=== PATIENT | female | born 1955 | race Caucasian/White ===

== ENCOUNTER 2017-01-22 09:30 | Inpatient (IN) | payer OTHER ==
[~2017-01-22] VITALS: Ht 157.5 cm; Wt 80.0 kg
[2017-01-22] VITALS (8 sets, daily range): BP systolic 105–135; BP diastolic 52–82; PULSE 66–103; RESP 16–20; TEMP 97.6–103.1; O2SAT 93–98
[~2017-01-22 09:30] MED LIST: CARV12.5 PO; ESTR30V VAGINAL; SPIR25TA PO
[2017-01-22] MEDS ORDERED: cefTRIAXone INJ 2,000 MG in SODIUM CHLORIDE 0.9% INJ 100 ML IV STA (09:51)
[2017-01-22] MEDS ORDERED: ASPI81CH37 CHEW (09:54)
[2017-01-22] MEDS ORDERED: NEUR800T PO (09:54)
[2017-01-22] MEDS ORDERED: CARV25TA PO (09:54)
--- NOTE | 2017-01-22 09:55 | PD ---
HPI Chief Complaint: Fever Time Seen by Provider: 09:51 Travel History International Travel<30 days: No Contact w/Intl Traveler<30days: No Traveled to known affect area: No History of Present Illness HPI 61-year-old female patient with history of hypertension, defibrillator, presents to the ER today because she has had 3 weeks' history of intermittent fevers and chills, fevers of 103 at times, headaches, and coughing. She denies any nausea, vomiting, stiff neck, or any other symptoms. She had been seen by her primary care physician regarding this issue and had urine done which was negative. She is coming in today because her colleague noted that she was appearing cyanotic. She denies shortness of breath currently. Modifying Factors: None Associated Signs & Symptoms: Fevers, cough, chills for 3 weeks Risk Factors: None PFSH Past Medical History Cancer: No Cardiovascular Problems: Yes (DEFIB) Chest Pain: No Diabetes: No Gastrointestinal Disorders: No Glaucoma: No Hepatitis: No Hiatal Hernia: No Integumentary: No Thyroid Disease: No Past Surgical History Thoracic Surgery: No Social History Alcohol Use: Yes Tobacco Use: No Allergies-Medications (Allergen,Severity, Reaction): Coded Allergies: No Known Allergies (Unverified , 11/29/15) Reported Meds & Prescriptions Reported Meds & Active Scripts Active Reported Aspirin Low Dose (Aspirin) 81 Mg Chew 81 Mg CHEW DAILY Carvedilol 25 Mg Tab 25 Mg PO BID Neurontin (Gabapentin) 800 Mg Tab 1,000 Mg PO BID Review of Systems Except as stated in HPI: all other systems reviewed are Neg Physical Exam Narrative GENERAL: Well-developed elderly white female patient currently in mild distress. Awake and oriented 3. SKIN: Focused skin assessment warm/dry. HEAD: Atraumatic. Normocephalic. EYES: Pupils equal and round. No scleral icterus. No injection or drainage. ENT: No nasal bleeding or discharge. Mucous membranes pink and moist. NECK: Trachea midline. No JVD. CARDIOVASCULAR: Regular rate and rhythm. No murmur appreciated. RESPIRATORY: No accessory muscle use. Clear to auscultation. Breath sounds equal bilaterally. GASTROINTESTINAL: Abdomen soft, non-tender, nondistended. Hepatic and splenic margins not palpable. MUSCULOSKELETAL: No obvious deformities. No clubbing. No cyanosis. No edema. NEUROLOGICAL: Awake and alert. No obvious cranial nerve deficits. Motor grossly within normal limits. Normal speech. PSYCHIATRIC: Appropriate mood and affect; insight and judgment normal. Data Data Last Documented VS Vital Signs Date Time Temp Pulse Resp B/P Pulse Ox O2 Delivery O2 Flow Rate FiO2 01/22/17 10:07 97 Nasal Cannula 2 01/22/17 09:56 103.1 103 18 120/75 Orders Complete Blood Count With Diff (01/22/17 09:51) Comprehensive Metabolic Panel (01/22/17 09:51) Lactic Acid Sepsis Protocol (01/22/17 09:51) Urinalysis - C+S If Indicated (01/22/17 09:51) Influenzae A/B Antigen (01/22/17 09:51) Blood Culture (01/22/17 09:51) Chest, Single Ap (01/22/17 09:51) Blood Glucose (01/22/17 09:51) Ecg Monitoring (01/22/17 09:51) Iv Access Insert/Monitor (01/22/17 09:51) Oximetry (01/22/17 09:51) Oxygen Administration (01/22/17 09:51) Ceftriaxone Inj (Rocephin Inj) (01/22/17 09:51) Sodium Chlor 0.9% 1000 Ml Inj (Ns 1000 M (01/22/17 10:15) Acetaminophen (Tylenol) (01/22/17 10:15) Piperacil-Tazo 4.5 Gm Premix (Zosyn 4.5 (01/22/17 10:12) Azithromycin Inj (Zithromax Inj) (01/22/17 10:12) Electrocardiogram (01/22/17 10:00) Admit Order (Ed Use Only) (01/22/17 11:57) Labs Laboratory Tests Test 01/22/17 10:05 White Blood Count 11.8 TH/MM3 Red Blood Count 4.03 MIL/MM3 Hemoglobin 11.1 GM/DL Hematocrit 33.5 % Mean Corpuscular Volume 83.2 FL Mean Corpuscular Hemoglobin 27.6 PG Mean Corpuscular Hemoglobin 33.2 % Concent Red Cell Distribution Width 14.9 % Platelet Count 119 TH/MM3 Mean Platelet Volume 8.2 FL Neutrophils (%) (Auto) 88.0 % Lymphocytes (%) (Auto) 5.1 % Monocytes (%) (Auto) 6.3 % Eosinophils (%) (Auto) 0.1 % Basophils (%) (Auto) 0.5 % Neutrophils # (Auto) 10.4 TH/MM3 Lymphocytes # (Auto) 0.6 TH/MM3 Monocytes # (Auto) 0.7 TH/MM3 Eosinophils # (Auto) 0.0 TH/MM3 Basophils # (Auto) 0.1 TH/MM3 CBC Comment DIFF FINAL Differential Comment Urine Color YELLOW Urine Turbidity CLEAR Urine pH 5.5 Urine Specific [place] 1.019 Urine Protein 30 mg/dL Urine Glucose (UA) NEG mg/dL Urine Ketones NEG mg/dL Urine Occult Blood MOD Urine Nitrite NEG Urine Bilirubin NEG Urine Urobilinogen LESS THAN 2.0 MG/DL Urine Leukocyte Esterase TRACE Urine RBC 11 /hpf Urine WBC 3 /hpf Urine Squamous Epithelial 1 /hpf Cells Urine Mucus FEW /lpf Microscopic Urinalysis Comment CATH-CULT NOT IND Sodium Level 133 MEQ/L Potassium Level 4.0 MEQ/L Chloride Level 102 MEQ/L Carbon Dioxide Level 19.3 MEQ/L Anion Gap 12 MEQ/L Blood Urea Nitrogen 11 MG/DL Creatinine 0.72 MG/DL Estimat Glomerular Filtration 82 ML/MIN Rate Random Glucose 119 MG/DL Lactic Acid Level 1.1 mmol/L Calcium Level 8.9 MG/DL Total Bilirubin 1.1 MG/DL Aspartate Amino Transf 31 U/L (AST/SGOT) Alanine Aminotransferase 44 U/L (ALT/SGPT) Alkaline Phosphatase 48 U/L Total Protein 7.6 GM/DL Albumin 3.2 GM/DL MDM Medical Decision Making Medical Screen Exam Complete: Yes Emergency Medical Condition: Yes Medical Record Reviewed: Yes Interpretation(s) Laboratory Tests Test 01/22/17 10:05 White Blood Count 11.8 TH/MM3 (4.0-11.0) Hemoglobin 11.1 GM/DL (11.6-15.3) Hematocrit 33.5 % (35.0-46.0) Platelet Count 119 TH/MM3 (150-450) Neutrophils (%) (Auto) 88.0 % (16.0-70.0) Lymphocytes (%) (Auto) 5.1 % (9.0-44.0) Neutrophils # (Auto) 10.4 TH/MM3 (1.8-7.7) Lymphocytes # (Auto) 0.6 TH/MM3 (1.0-4.8) Urine Protein 30 mg/dL (NEG-TRACE) Urine Occult Blood MOD (NEG) Urine Leukocyte Esterase TRACE (NEG) Urine RBC 11 /hpf (0-3) Urine Mucus FEW /lpf (OCC) Sodium Level 133 MEQ/L (136-145) Carbon Dioxide Level 19.3 MEQ/L (21.0-32.0) Estimat Glomerular Filtration 82 ML/MIN (>89) Rate Random Glucose 119 MG/DL (74-106) Total Bilirubin 1.1 MG/DL (0.2-1.0) Albumin 3.2 GM/DL (3.4-5.0) Differential Diagnosis Fevers, cough, chillspneumonia versus sepsis versus influenza Narrative Course Patient is febrile the ER. Sepsis protocol was initiated and he'll was given in the ER. IV antibiotics were given after cultures were drawn. Lab work shows mild leukocytosis of uncertain etiology. Chest x-ray and urine was clean. She did not any obvious meningeal signs. At this point, my plan would be to admit her for further evaluation. Case is discussed with Dr. Wang for admission. Sepsis Criteria SIRS Criteria (2 or more): Temp > 100.9 or < 96.8, Heart rate over 90 Diagnosis Primary Impression: Sepsis Admitting Information Admitting Physician Requests: Admit Joana Garcia MD Jan 22, 2017 09:55
[2017-01-22] MEDS ORDERED: AZITHROMYCIN INJ 500 MG in SODIUM CHLOR 0.9% 250 ML INJ 250 ML IV STA (10:12)
[2017-01-22] MEDS ORDERED: PIPERACIL-TAZO 4.5 GM PREMIX 100 ML IV STA (10:12)
[2017-01-22] MEDS ORDERED: ACETAMINOPHEN 500 MG CPLT PO ONE (10:15)
[2017-01-22] MEDS ORDERED: SODIUM CHLOR 0.9% 1000 ML INJ 1,000 ML IV ONE (10:15)
[2017-01-22 10:27] LABS: AUTOMATED NEUTROPHIL # 10.4 TH/MM3 (1.8-7.7); BASOPHIL # 0.1 TH/MM3 (0-0.2); BASOPHIL % 0.5 % (0.0-2.0); EOSINOPHIL % 0.1 % (0.0-4.0); HEMATOCRIT 33.5 % (35.0-46.0); HEMO FLAGS DIFF FINAL; LYMPH % 5.1 % (9.0-44.0); LYMPHOCYTE # 0.6 TH/MM3 (1.0-4.8); MEAN CELL VOLUME 83.2 FL (80.0-100.0); MEAN CORPUSCULAR HEMOGLOBIN 27.6 PG (27.0-34.0); MEAN CORPUSCULAR HGB CONC 33.2 % (32.0-36.0); MONO % 6.3 % (0.0-8.0); PLATELET COUNT 119 TH/MM3 (150-450); RED BLOOD COUNT 4.03 MIL/MM3 (4.00-5.30); RED CELL DISTRIBUTION WIDTH 14.9 % (11.6-17.2); WHITE BLOOD COUNT 11.8 TH/MM3 (4.0-11.0)
[2017-01-22 10:36] LABS: BLOOD, URINE MOD (NEG); COMMENT (UR) CATH-CULT NOT IND; CULTURE IF INDICATED CATH CULTURE NOT IND; GLUCOSE,URINE NEG (NEG); KETONE, URINE NEG (NEG); MUCUS URINE FEW /lpf (OCC); NITRITE,URINE NEG (NEG); PH, URINE 5.5 (5.0-8.5); SQUAMOUS EPITHELIAL CELL URINE 1 /hpf (0-5); URINE COLOR YELLOW (YELLW/STRAW)
--- NOTE | 2017-01-22 10:40 | RADRPT ---
EXAM DATE/TIME: 01/22/2017 09:51 [facility] COMPARISON: No previous studies available for comparison. INDICATIONS : Nausea, chills and fever. MEDICAL HISTORY : None. SURGICAL HISTORY : Defibrillator ENCOUNTER: Initial ACUITY: 1 month PAIN SCORE: 2/10 LOCATION: Bilateral chest FINDINGS: A single view of the chest demonstrates the lungs to be symmetrically aerated without evidence of mas s, infiltrate or effusion. The cardiomediastinal contours are unremarkable. Osseous structures are intact. There is a transvenous pacer in good position. CONCLUSION: 1. No acute cardiopulmonary findings. Jared Weinstein MD on January 22, 2017 at 10:38 Board Certified Radiologist. This report was verified electronically.
[2017-01-22 10:43] LABS: ANION GAP 12 MEQ/L (5-15); AST (GOT) 31 U/L (15-37); BICARBONATE 19.3 MEQ/L (21.0-32.0); BLOOD UREA NITROGEN 11 MG/DL (7-18); CHLORIDE 102 MEQ/L (98-107); GLOMERULAR FILTRATION RATE 82 ML/MIN (>89); SODIUM (NA) 133 MEQ/L (136-145)
[2017-01-22 10:47] LABS: ALKALINE PHOSPHATASE 48 U/L (45-117); ALT (GPT) 44 U/L (10-53); TOTAL BILIRUBIN ADULT 1.1 MG/DL (0.2-1.0)
[2017-01-22] MEDS ORDERED: NALOXONE HCL 0.4 MG/ML AMP IV PRN ×2 (12:30)
[2017-01-22] MEDS ORDERED: SODIUM CHLORIDE 0.9% FLUSH 10 ML FLUSH IV FLUSH PRN ×2 (12:30)
[2017-01-22] MEDS ORDERED: BISACODYL 10 MG SUPP RECTAL PRN ×2 (12:30)
[2017-01-22] MEDS ORDERED: MAGNESIUM HYDROXIDE SUSP 30 ML CUP PO PRN ×2 (12:30)
[2017-01-22] MEDS ORDERED: SENNOSIDES 8.6 MG TAB PO PRN ×2 (12:30)
[2017-01-22] MEDS ORDERED: LACTULOSE SYRUP 20 GM/30 ML CUP PO PRN ×2 (12:30)
[2017-01-22] MEDS: SODIUM CHLOR 0.9% 1000 ML INJ 1,000 ML IV SCH ×2 (12:57→21:34)
[2017-01-22] MEDS: HEPARIN SODIUM - SQ 10,000 UNITS/ML VIAL SQ SCH (12:59)
[2017-01-22] MEDS ORDERED: Vancomycin Consult Pharmacy 1 EA OTHER SCH (15:15)
[2017-01-22] MEDS ORDERED: VANCOMYCIN INJ 1,000 MG in SODIUM CHLOR 0.9% 250 ML INJ 250 ML IV ONE (16:00)
--- NOTE | 2017-01-22 17:10 | HHI.HP ---
HPI Service [facility] Primary Care Physician Surya Baig M.D. Admission Diagnosis fever/sepsis Diagnoses: Travel History International Travel<30 Days: No Contact w/Intl Traveler <30 Da: No Traveled to Known Affected Are: No History of Present Illness Is a very pleasant 61-year-old female with a history of ICD placement in 2007. She is a nurse herself. She has 3 weeks of intermittent fever and chills. In addition she has some headache and cough. Temperature at home has been up to 103F. She came to the emergency department at [facility] at the suggestion of her coworkers. She was seen by Dr. Garcia and subsequently by the undersigned in room E 51. She is alert and oriented. She was seen in presence of her . She is complaining of fever chills or diaphoresis as detailed above. In addition she is complaining of swelling in the defibrillator site, she also said that the defibrillator has actually moved laterally. No redness or drainage. She also complaining of pleuritic pain in the left lower rib cage area. No abdominal pain. No change in bowel habit. No dysuria or hematuria at this time. Review of Systems Other As detailed above, 10 systems reviewed and otherwise negative Past Family Social History Past Medical History Chronic systolic heart failure Ejection fraction 15% Recurrent urinary infection Hypertension Possible Hyperlipidemia Small bowel obstruction Torn ligaments of the right knee Right lower extremity DVT, completed 3 months of oral anticoagulation Of note that computer records mention cerebrovascular accident however this is not confirmed with the patient Past Surgical History Defibrillator insertion Hysterectomy complicated with bowel perforation partial colectomy Reported Medications Reported Meds & Active Scripts Active Reported Aspirin Low Dose (Aspirin) 81 Mg Chew 81 Mg CHEW DAILY Carvedilol 25 Mg Tab 25 Mg PO BID Neurontin (Gabapentin) 800 Mg Tab 1,000 Mg PO BID Allergies: Coded Allergies: No Known Allergies (Unverified , 11/29/15) Family History Reviewed but noncontributory Social History No tobacco smoking, drinks one glass of wine a day, no illicit drug use Physical Exam Vital Signs Vital Signs Date Time Temp Pulse Resp B/P Pulse Ox O2 Delivery O2 Flow Rate FiO2 01/22/17 14:51 98.2 78 16 118/60 97 01/22/17 13:00 98.2 84 16 120/74 98 Room Air 01/22/17 11:30 99.0 94 16 123/82 97 Room Air 01/22/17 10:07 97 Nasal Cannula 2 01/22/17 10:07 97 Nasal Cannula 2 01/22/17 09:56 103.1 103 18 120/75 93 Room Air 01/22/17 09:56 94 Room Air 01/22/17 09:32 99.7 98 18 135/68 94 Room Air Physical Exam GENERAL: This is a pleasant, overweight, well-developed patient, in no apparent distress. SKIN: No rashes, ecchymoses or lesions. Cool and dry. HEAD: Atraumatic. Normocephalic. No temporal or scalp tenderness. EYES: Pupils equal round and reactive. Extraocular motions intact. No scleral icterus. No injection or drainage. ENT: Nose without bleeding, purulent drainage or septal hematoma. Throat without erythema, tonsillar hypertrophy or exudate. Uvula midline. Airway patent. NECK: Trachea midline. No JVD or lymphadenopathy. Supple, nontender, no meningeal signs. CARDIOVASCULAR: Regular rate and rhythm without murmurs, gallops, or rubs. RESPIRATORY: Clear to auscultation. Breath sounds equal bilaterally. No wheezes , rales, or rhonchi. There is some swelling over the area of the ICD at the left upper chest. Suspicion of a small fluid effusion at the ICD pocket site. No local heat, no local redness or drainage GASTROINTESTINAL: Abdomen soft, non-tender, nondistended. No hepato-splenomegaly , or palpable masses. No guarding. MUSCULOSKELETAL: Extremities without clubbing, cyanosis, or edema. No joint tenderness, effusion, or edema noted. No calf tenderness. Negative Homans sign bilaterally. NEUROLOGICAL: Awake and alert. Cranial nerves II through XII intact. Motor and sensory grossly within normal limits. Five out of 5 muscle strength in all muscle groups. Normal speech. Laboratory Laboratory Tests Test 01/22/17 10:05 White Blood Count 11.8 Red Blood Count 4.03 Hemoglobin 11.1 Hematocrit 33.5 Mean Corpuscular Volume 83.2 Mean Corpuscular Hemoglobin 27.6 Mean Corpuscular Hemoglobin 33.2 Concent Red Cell Distribution Width 14.9 Platelet Count 119 Mean Platelet Volume 8.2 Neutrophils (%) (Auto) 88.0 Lymphocytes (%) (Auto) 5.1 Monocytes (%) (Auto) 6.3 Eosinophils (%) (Auto) 0.1 Basophils (%) (Auto) 0.5 Neutrophils # (Auto) 10.4 Lymphocytes # (Auto) 0.6 Monocytes # (Auto) 0.7 Eosinophils # (Auto) 0.0 Basophils # (Auto) 0.1 CBC Comment DIFF FINAL Differential Comment Urine Color YELLOW Urine Turbidity CLEAR Urine pH 5.5 Urine Specific [place] 1.019 Urine Protein 30 Urine Glucose (UA) NEG Urine Ketones NEG Urine Occult Blood MOD Urine Nitrite NEG Urine Bilirubin NEG Urine Urobilinogen LESS THAN 2.0 Urine Leukocyte Esterase TRACE Urine RBC 11 Urine WBC 3 Urine Squamous Epithelial 1 Cells Urine Mucus FEW Microscopic Urinalysis Comment CATH-CULT NOT IND Sodium Level 133 Potassium Level 4.0 Chloride Level 102 Carbon Dioxide Level 19.3 Anion Gap 12 Blood Urea Nitrogen 11 Creatinine 0.72 Estimat Glomerular Filtration 82 Rate Random Glucose 119 Lactic Acid Level 1.1 Calcium Level 8.9 Total Bilirubin 1.1 Aspartate Amino Transf 31 (AST/SGOT) Alanine Aminotransferase 44 (ALT/SGPT) Alkaline Phosphatase 48 Total Protein 7.6 Albumin 3.2 Date/Time Procedure Status Source Growth 01/22/17 10:10 Aerobic Blood Culture Received Blood Peripheral Pending 01/22/17 10:10 Anaerobic Blood Culture Received Blood Peripheral Pending 01/22/17 10:05 Influenza Types A,B Antigen (MIHAELA) - Final Complete Nasal Washing NEGATIVE FOR FLU A AND B ANTIGEN.... Result Diagram: 01/22/17 1005 01/22/17 1005 Imaging Last 24 hours Impressions Chest X-Ray 01/22/17 0951 Signed Impressions: Service Date/Time: Sunday, January 22, 2017 09:51 - CONCLUSION: 1. No acute cardiopulmonary findings. Jared Weinstein MD Assessment and Plan Assessment and Plan Assessment High-grade fever Leukocytosis Left pleuritic chest pain Swelling at the ICD site with a sensation that the device has moved laterally Mild metabolic acidosis Borderline elevated Blood sugar Rule out urinary infection Management The patient has received Zosyn and Zithromax by the emergency physician She is admitted to telemetry She was started on intravenous vancomycin Blood cultures have been drawn and results are pending, rule out bacteremia Infectious disease consultation is requested CT scan of the chest is obtained for the ED pleuritic chest pain Rule out PE Rule out ICD pocket infection Infectious disease consultation is requested Cardiology consultation was requested DVT prophylaxis with low-dose heparin Continue home medications otherwise Discussed with patient in detail Discussed with nurse Discussed with emergency physician 45 minutes Discussed With: Nurse Herman Wang MD Jan 22, 2017 17:10
--- NOTE | 2017-01-22 17:59 | PD.CONS ---
History of Present Illness Service Infectious disease Consult Requested By Dr Wang Reason for Consult Evaluate patient with fever Primary Care Physician Surya Baig M.D. Diagnoses: History of Present Illness Patient seen and examined. Records reviewed. Patient is a 61-year-old female, was been having intermittent fevers in the last 3 weeks. The fever would occur at any time of the day. Over the last week the fevers have been more persistent. She would occasionally have rigors. She denies any night sweats. She's also had some sore throat, but denies any swallowing difficulty. There's been no cough or any shortness of breath. Son has some left-sided headache which is more all an achy type pain. She's had some nausea but no shree vomiting. She's also started having pain on the left side of her chest under her breasts. She has not had any urinary complaint. She has some mild achiness in her left arm. No significant back pain. No skin rash, no joint swelling noted. Her last travel was within the last year and he was in [place]. She has dogs and cats in her home but they've been with her for a while. No exposure to any other animals. No exposure to any sick child. She saw her primary care physician, and was supposed to get some blood work done. She's had about 6 pound weight loss in the last 3 weeks. Her appetite has been poor. She's had mammogram that was normal. Her last colonoscopy was about a year ago and that was okay. She has not had any Pap smear, since according to her she's had a hysterectomy done. Since admission she's had a fever of 103.1. Urinalysis has some hematuria. WBC is mildly elevated. Her LFTs are unremarkable. Chest x-rays normal. Infectious disease consultation has been requested to evaluate the patient. Review of Systems Constitutional: COMPLAINS OF: Fever, Weight loss, Chills, Change in appetite, DENIES: Dizziness Eyes: DENIES: Eye pain, Vision loss Ears, nose, mouth, throat: COMPLAINS OF: Throat pain, DENIES: Nasal discharge , Oral lesions, Hoarseness, Ear Pain, Running Nose Respiratory: DENIES: Cough, Sputum production, Shortness of breath Cardiovascular: COMPLAINS OF: Chest pain, DENIES: Palpitations, Syncope Gastrointestinal: COMPLAINS OF: Nausea, DENIES: Abdominal pain, Diarrhea, Vomiting, Difficulty Swallowing Genitourinary: DENIES: Urinary frequency, Urinary incontinence, Urgency, Dysuria Musculoskeletal: COMPLAINS OF: Joint pain, Muscle aches, Back pain, DENIES: Joint Swelling, Neck pain Integumentary: DENIES: Rash, Breast masses, Nipple discharge Hematologic/lymphatic: COMPLAINS OF: Lymphadenopathy, DENIES: Bruising Neurologic: COMPLAINS OF: Headache Psychiatric: DENIES: Hallucinations Past Family Social History Allergies: Coded Allergies: No Known Allergies (Unverified , 11/29/15) Past Medical History Chronic systolic heart failure Ejection fraction 35% Recurrent urinary infection Hypertension Possible Hyperlipidemia Small bowel obstruction Torn ligaments of the right knee Right lower extremity DVT, completed 3 months of oral anticoagulation Past Surgical History Defibrillator insertion Hysterectomy complicated with bowel perforation partial colectomy Active Ordered Medications Aspirin Dulcolax Coreg Neurontin Heparin Lactulose MOM Zofran Iveth-Colace Senokot Vancomycin Family History Noncontributory Social History 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 No smoking Drinks wine No illicit drugs , x 30 years Moved to [place] 2014 Physical Exam Vital Signs Vital Signs Date Time Temp Pulse Resp B/P Pulse Ox O2 Delivery O2 Flow Rate FiO2 01/22/17 16:20 97.8 74 20 105/52 95 01/22/17 14:51 98.2 78 16 118/60 97 01/22/17 13:00 98.2 84 16 120/74 98 Room Air 01/22/17 11:30 99.0 94 16 123/82 97 Room Air 01/22/17 10:07 97 Nasal Cannula 2 01/22/17 10:07 97 Nasal Cannula 2 01/22/17 09:56 103.1 103 18 120/75 93 Room Air 01/22/17 09:56 94 Room Air 01/22/17 09:32 99.7 98 18 135/68 94 Room Air Physical Exam GENERAL: Patient is a well-nourished, well-developed CF, awake and alert, not in respiratory distress. She does not look toxic appearing. SKIN: Warm and dry. No generalized rash, no ecchymoses and no evidence of embolic lesions. HEAD: Atraumatic. Normocephalic. No temporal wasting, or tenderness. EYES: [place] conjunctiva. No petechia or hemorrhage. Pupils equal, round and reactive to light. Extraocular movements full and intact. No scleral icterus. No injection or drainage. EARS, NOSE AND THROAT: Nose without bleeding or purulent nasal discharge. No sinus tenderness. Mucous membranes pink and moist. No oral lesions noted. No redness or exudate. No oral thrush. NECK: Trachea midline. Supple and not tender, no meningeal signs CARDIOVASCULAR: Regular rate and rhythm. Has murmur at the base on heart, no rubs RESPIRATORY: Clear to auscultation. Breath sounds equal bilaterally. No rales , wheezing or rhonchi. AICD L upper chest, looks unremarkable, no redness, not indurated ABDOMEN: Soft, non-tender, nondistended. Bowel sounds present and normoactive. No guarding. No rebound. No organomegaly. EXTREMITIES: No clubbing, cyanosis, or edema. No joint effusion, has good ROM. No calf tenderness. Well perfused and warm. NEUROLOGICAL: Awake and alert. Cranial nerves grossly intact. Motor grossly within normal limits. PSYCHIATRIC: Normal affect, calm and cooperative. LINE: No evidence of infection Laboratory Laboratory Tests Test 01/22/17 10:05 White Blood Count 11.8 Red Blood Count 4.03 Hemoglobin 11.1 Hematocrit 33.5 Mean Corpuscular Volume 83.2 Mean Corpuscular Hemoglobin 27.6 Mean Corpuscular Hemoglobin 33.2 Concent Red Cell Distribution Width 14.9 Platelet Count 119 Mean Platelet Volume 8.2 Neutrophils (%) (Auto) 88.0 Lymphocytes (%) (Auto) 5.1 Monocytes (%) (Auto) 6.3 Eosinophils (%) (Auto) 0.1 Basophils (%) (Auto) 0.5 Neutrophils # (Auto) 10.4 Lymphocytes # (Auto) 0.6 Monocytes # (Auto) 0.7 Eosinophils # (Auto) 0.0 Basophils # (Auto) 0.1 CBC Comment DIFF FINAL Differential Comment Urine Color YELLOW Urine Turbidity CLEAR Urine pH 5.5 Urine Specific [place] 1.019 Urine Protein 30 Urine Glucose (UA) NEG Urine Ketones NEG Urine Occult Blood MOD Urine Nitrite NEG Urine Bilirubin NEG Urine Urobilinogen LESS THAN 2.0 Urine Leukocyte Esterase TRACE Urine RBC 11 Urine WBC 3 Urine Squamous Epithelial 1 Cells Urine Mucus FEW Microscopic Urinalysis Comment CATH-CULT NOT IND Sodium Level 133 Potassium Level 4.0 Chloride Level 102 Carbon Dioxide Level 19.3 Anion Gap 12 Blood Urea Nitrogen 11 Creatinine 0.72 Estimat Glomerular Filtration 82 Rate Random Glucose 119 Lactic Acid Level 1.1 Calcium Level 8.9 Total Bilirubin 1.1 Aspartate Amino Transf 31 (AST/SGOT) Alanine Aminotransferase 44 (ALT/SGPT) Alkaline Phosphatase 48 Total Protein 7.6 Albumin 3.2 Date/Time Procedure Status Source Growth 01/22/17 10:10 Aerobic Blood Culture Received Blood Peripheral Pending 01/22/17 10:10 Anaerobic Blood Culture Received Blood Peripheral Pending 01/22/17 10:05 Influenza Types A,B Antigen (MIHAELA) - Final Complete Nasal Washing NEGATIVE FOR FLU A AND B ANTIGEN.... Result Diagram: 01/22/17 1005 01/22/17 1005 Imaging RADIOLOGY STUDIES/FILMS REVIEWED Last Impressions Chest X-Ray 01/22/17 0951 Signed Impressions: Service Date/Time: Wednesday, January 22, 2017 09:51 - CONCLUSION: 1. No acute cardiopulmonary findings. Jared Weinstein MD Assessment and Plan Assessment and Plan IMPRESSION Fever, no localizing complaints, except for some L sided CP - has mild elevation of WBC Hx cardiomyopathy, has AICD, placed 2007, generator changed 2014 RECOMMENDATION On IV Vanco Repeat BC tomorrow Check ESR, CRP, ROCIO, RF Check EBV and CMV CT chest If CT negative, do CT A/P Echo If BC negative, consider D/C Vanco and observe Monitor temps Follow C/S Monitor progress I will follow along with you Thank you for this consultation Discussed Condition With Explained plan to the patient Arlene Chauhan MD Jan 22, 2017 17:59
[2017-01-22] MEDS ORDERED: IOHEXOL 350 MG/ML 10 ML VIAL (for RAD DIAG) IV ONE (19:27)
--- NOTE | 2017-01-22 19:34 | RADRPT ---
EXAM DATE/TIME: 01/22/2017 19:01 [facility] COMPARISON: No previous studies available for comparison. INDICATIONS : Shortness of breath. IV CONTRAST: 72 cc Omnipaque 350 (iohexol) IV ; Cumulative dose for multiple exams. RADIATION DOSE: 9.96 CTDIvol (mGy) MEDICAL HISTORY : Stroke. Hypertension. SURGICAL HISTORY : Colon resection. Hysterectomy. ENCOUNTER: Initial ACUITY: 1 day PAIN SCALE: 0/10 LOCATION: Bilateral chest TECHNIQUE: Volumetric scanning of the chest was performed using a pulmonary embolism protocol MIP images were re constructed. Using automated exposure control and adjustment of the mA and/or kV according to patien t size, radiation dose was kept as low as reasonably achievable to obtain optimal diagnostic quality images. DICOM format image data is available electronically for review and comparison. Follow-up recommendations for incidentally detected pulmonary nodules are based at a minimum on nodul e size and patient risk factors according to Fleischner Society Guidelines. FINDINGS: PULMONARY ARTERIES: No filling defects are seen in the pulmonary arteries through the segmental level. LUNGS: There is no consolidation or pneumothorax . No concerning pulmonary nodule is visualized. Scattered granulomata are noted. PLEURAE: There is no pleural thickening or pleural effusion. MEDIASTINUM: There is good visualization of the great vessels of the middle mediastinum. No evidence of mediastin al or hilar adenopathy/mass. MUSCULOSKELETAL: Within normal limits for patient age. MISCELLANEOUS: The visualized upper abdominal organs demonstrate no acute abnormality. CONCLUSION: No pulmonary embolus or other acute cardiopulmonary disease demonstrated. Homar Ashraf MD on January 22, 2017 at 19:32 Board Certified Radiologist. This report was verified electronically.
[2017-01-22] MEDS ORDERED: DOCUSATE SODIUM 50 MG/SENNA 8.6 MG TAB PO SCH (21:00)
[2017-01-22] MEDS ORDERED: SODIUM CHLORIDE 0.9% FLUSH 10 ML FLUSH IV FLUSH SCH (21:00)
[2017-01-22] MEDS: SODIUM CHLORIDE 0.9% FLUSH 10 ML FLUSH IV FLUSH SCH (21:15)
[2017-01-22] MEDS: CARVEDILOL 12.5 MG TAB PO SCH (21:15)
[2017-01-22] MEDS: DOCUSATE SODIUM 50 MG/SENNA 8.6 MG TAB PO SCH (21:15)
[2017-01-22] MEDS: GABAPENTIN 400 MG CAP PO SCH (21:15)
[2017-01-22] MEDS: ACETAMINOPHEN/HYDROcodone 325 MG/5 MG TAB PO PRN (21:20)
[2017-01-22] MEDS: GABAPENTIN 100 MG CAP PO SCH (21:34)
[2017-01-23] VITALS (8 sets, daily range): BP systolic 95–124; BP diastolic 51–64; PULSE 54–68; RESP 16–20; TEMP 97.3–98.1; O2SAT 94–97
[2017-01-23] MEDS: HEPARIN SODIUM - SQ 10,000 UNITS/ML VIAL SQ SCH ×3 (00:56→23:15)
[2017-01-23] MEDS ORDERED: VANCOMYCIN 1,500 MG/NS 500 ML IV SCH ×2 (04:00)
[2017-01-23 07:00] LABS: AUTOMATED NEUTROPHIL # 3.7 TH/MM3 (1.8-7.7); BASOPHIL % 0.7 % (0.0-2.0); EOSINOPHIL # 0.1 TH/MM3 (0-0.4); EOSINOPHIL % 1.1 % (0.0-4.0); HEMATOCRIT 28.7 % (35.0-46.0); LYMPH % 14.6 % (9.0-44.0); LYMPHOCYTE # 0.8 TH/MM3 (1.0-4.8); MEAN CELL VOLUME 84.3 FL (80.0-100.0); MEAN CORPUSCULAR HEMOGLOBIN 28.7 PG (27.0-34.0); MEAN CORPUSCULAR HGB CONC 34.1 % (32.0-36.0); MONO % 12.6 % (0.0-8.0); PLATELET COUNT 89 TH/MM3 (150-450); RED BLOOD COUNT 3.41 MIL/MM3 (4.00-5.30); RED CELL DISTRIBUTION WIDTH 15.1 % (11.6-17.2); WHITE BLOOD COUNT 5.3 TH/MM3 (4.0-11.0)
[2017-01-23 07:19] LABS: HEMO FLAGS AUTO DIFF
[2017-01-23 07:22] LABS: RHEUMATOID FACTOR TRIGGER 27.2 IU/ML (0.0-14.9)
[2017-01-23 07:29] LABS: BICARBONATE 22.5 MEQ/L (21.0-32.0); POTASSIUM 3.5 MEQ/L (3.5-5.1)
[2017-01-23] MEDS: SODIUM CHLOR 0.9% 1000 ML INJ 1,000 ML IV SCH ×2 (08:26→21:05)
[2017-01-23] MEDS: ASPIRIN 81 MG CHEW TAB CHEW SCH (08:37)
[2017-01-23] MEDS: DOCUSATE SODIUM 50 MG/SENNA 8.6 MG TAB PO SCH ×2 (08:37→21:03)
[2017-01-23] MEDS: GABAPENTIN 100 MG CAP PO SCH ×2 (08:37→21:02)
[2017-01-23] MEDS: GABAPENTIN 400 MG CAP PO SCH ×2 (08:38→21:03)
[2017-01-23] MEDS: CARVEDILOL 12.5 MG TAB PO SCH ×2 (08:39→21:04)
[2017-01-23] MEDS: SODIUM CHLORIDE 0.9% FLUSH 10 ML FLUSH IV FLUSH SCH ×2 (08:39→21:00)
[2017-01-23 08:40] LABS: PLATELET ESTIMATE SMEAR LOW (NORMAL); PLATELET MORPHOLOGY NORMAL (NORMAL); SCAN/DIFF AUTO DIFF CONFIRMED
--- NOTE | 2017-01-23 10:41 | EKG ---
Date Performed: 01/22/2017 Time Performed: 10:00:30 PTAGE: 61 years EKG: SINUS TACHYCARDIA LEFT BUNDLE BRANCH BLOCK ABNORMAL ECG INTERPRETATION BASED ON A DEFAULT A GE OF 40 YEARS PREVIOUS TRACING : 11/29/2015 06.52 DOCTOR: Massimo Goss Interpretating Date/Time 01/23/2017 10:38:26
[2017-01-23] MEDS: ACETAMINOPHEN/HYDROcodone 325 MG/5 MG TAB PO PRN (13:03)
[2017-01-23] MEDS ORDERED: DIATRIZOATE MEGLUM/DIATRIZOATE SOD 9 ML CUP PO ONE (14:45)
--- NOTE | 2017-01-23 14:54 | HHI.IDPN ---
Subjective Subjective Remarks ID X cover for Dr Chauhan pt is 61 y.o. female with h/o AICD placed in 2007, battery changesd 2 yrs ago presented with fever x 1 month Blood clx + 2/2 with GPC in clusters no fever today She thiks she has some vague discomfort at her AICD site Antibiotics vancomycin Allergies: Coded Allergies: No Known Allergies (Unverified , 11/29/15) Objective . Vital Signs Date Time Temp Pulse Resp B/P Pulse Ox O2 Delivery O2 Flow Rate FiO2 01/23/17 08:00 98.1 59 20 117/56 95 01/23/17 04:00 97.6 59 20 106/56 94 01/23/17 00:00 97.8 54 20 95/51 95 01/22/17 20:00 97.6 66 20 115/58 97 01/22/17 16:20 97.8 74 20 105/52 95 01/22/17 14:51 98.2 78 16 118/60 97 01/22/17 01/22/17 01/23/17 15:00 23:00 07:00 Intake Total 1030 ml 795 ml Balance 1030 ml 795 ml Intake Oral 240 ml IV Total 790 ml 795 ml # Voids 2 . Laboratory Tests Test 01/22/17 01/23/17 10:05 06:20 White Blood Count 11.8 TH/MM3 5.3 TH/MM3 Red Blood Count 4.03 MIL/MM3 3.41 MIL/MM3 Hemoglobin 11.1 GM/DL 9.8 GM/DL Hematocrit 33.5 % 28.7 % Mean Corpuscular Volume 83.2 FL 84.3 FL Mean Corpuscular Hemoglobin 27.6 PG 28.7 PG Mean Corpuscular Hemoglobin 33.2 % 34.1 % Concent Red Cell Distribution Width 14.9 % 15.1 % Platelet Count 119 TH/MM3 89 TH/MM3 Mean Platelet Volume 8.2 FL 8.1 FL Neutrophils (%) (Auto) 88.0 % 71.0 % Lymphocytes (%) (Auto) 5.1 % 14.6 % Monocytes (%) (Auto) 6.3 % 12.6 % Eosinophils (%) (Auto) 0.1 % 1.1 % Basophils (%) (Auto) 0.5 % 0.7 % Neutrophils # (Auto) 10.4 TH/MM3 3.7 TH/MM3 Lymphocytes # (Auto) 0.6 TH/MM3 0.8 TH/MM3 Monocytes # (Auto) 0.7 TH/MM3 0.7 TH/MM3 Eosinophils # (Auto) 0.0 TH/MM3 0.1 TH/MM3 Basophils # (Auto) 0.1 TH/MM3 0.0 TH/MM3 CBC Comment DIFF FINAL AUTO DIFF Differential Comment AUTO DIFF CONFIRMED Platelet Estimate LOW Platelet Morphology Comment NORMAL Erythrocyte Sedimentation Rate 52 mm/hr Laboratory Tests Test 01/22/17 01/23/17 10:05 06:20 Sodium Level 133 MEQ/L 142 MEQ/L Potassium Level 4.0 MEQ/L 3.5 MEQ/L Chloride Level 102 MEQ/L 112 MEQ/L Carbon Dioxide Level 19.3 MEQ/L 22.5 MEQ/L Anion Gap 12 MEQ/L 8 MEQ/L Blood Urea Nitrogen 11 MG/DL 8 MG/DL Creatinine 0.72 MG/DL 0.45 MG/DL Estimat Glomerular Filtration 82 ML/MIN 141 ML/MIN Rate Random Glucose 119 MG/DL 82 MG/DL Lactic Acid Level 1.1 mmol/L Calcium Level 8.9 MG/DL 7.7 MG/DL Total Bilirubin 1.1 MG/DL Aspartate Amino Transf 31 U/L (AST/SGOT) Alanine Aminotransferase 44 U/L (ALT/SGPT) Alkaline Phosphatase 48 U/L Total Protein 7.6 GM/DL Albumin 3.2 GM/DL C-Reactive Protein 10.20 MG/DL Microbiology Date/Time Procedure Status Source Growth 01/22/17 10:05 Aerobic Blood Culture - Preliminary Resulted Blood Peripheral NO GROWTH IN 1 DAY 01/22/17 10:05 Anaerobic Blood Culture - Preliminary Resulted Gram Positive Cocci 01/22/17 10:05 Influenza Types A,B Antigen (MIHAELA) - Final Complete Nasal Washing NEGATIVE FOR FLU A AND B ANTIGEN.... 01/22/17 10:10 Aerobic Blood Culture - Preliminary Resulted Blood Peripheral NO GROWTH IN 1 DAY 01/22/17 10:10 Anaerobic Blood Culture - Preliminary Resulted Gram Positive Cocci 01/23/17 06:20 Aerobic Blood Culture Received Blood Peripheral Pending 01/23/17 06:20 Anaerobic Blood Culture Received Blood Peripheral Pending 01/23/17 06:30 Aerobic Blood Culture Received Blood Peripheral Pending 01/23/17 06:30 Anaerobic Blood Culture Received Blood Peripheral Pending Imaging Last Impressions Chest X-Ray 01/22/17 0951 Signed Impressions: Service Date/Time: Sunday, January 22, 2017 09:51 - CONCLUSION: 1. No acute cardiopulmonary findings. Jared Weinstein MD CT Angiography 01/22/17 0000 Signed Impressions: Service Date/Time: Sunday, January 22, 2017 19:01 - CONCLUSION: No pulmonary embolus or other acute cardiopulmonary disease demonstrated. Homar Ashraf MD Physical Exam GENERAL: Patient is a well-nourished, well-developed CF, awake and alert, not in respiratory distress. She does not look toxic appearing. SKIN: Warm and dry. No generalized rash, no ecchymoses and no evidence of embolic lesions. EYES: [place] conjunctiva. No petechia or hemorrhage. Pupils equal, round and reactive to light. Extraocular movements full and intact. No scleral icterus. No injection or drainage. EARS, NOSE AND THROAT: Mucous membranes pink and moist. No oral lesions noted. No oral thrush. CARDIOVASCULAR: Regular rate and rhythm. Has murmur at the base on heart, no rubs AICD in place L chest, no skin changes around it RESPIRATORY: Clear to auscultation. Breath sounds equal bilaterally. No rales , wheezing or rhonchi. ABDOMEN: Soft, non-tender, nondistended. Bowel sounds present and normoactive. No guarding. No rebound. No organomegaly. EXTREMITIES: No clubbing, cyanosis, or edema. No joint effusion, has good ROM. No calf tenderness. Well perfused and warm. NEUROLOGICAL: Awake and alert. Cranial nerves grossly intact. Motor grossly within normal limits. PSYCHIATRIC: Normal affect, calm and cooperative. 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
--- NOTE | 2017-01-23 17:21 | MB ---
cc: DEDE CHAVES MD DATE OF CONSULTATION: 01/23/2017. REASON FOR CONSULTATION: Possible defibrillator infection. HISTORY OF PRESENT ILLNESS: The patient is a very pleasant 61-year-old woman with a history of a defibrillator for somewhat unclear reasons but now is status post generator change and lead exchange last year. Over the last month or so, the patient has been intermittently febrile will shaking fevers and chills which she said were quite significant. She presented to the hospital with fevers up to 103.1 and her blood has been growing Staph lugdunensis. She is currently getting antibiotics and is feeling better. She denies any other symptoms such as shortness breath, lightheadedness, dizziness, or syncope. She does have vague achiness in her left side around her defibrillator and her left shoulder, not truly chest pain. PAST MEDICAL HISTORY: 1. ICD placement. 2. Apparently significant cardiomyopathy previously, though unclear what current ejection fraction is. 3. Hypertension. 4. Hyperlipidemia. MEDICATIONS: Current medications are: 1. Aspirin 81 milligrams daily. 2. Vancomycin. 3. Carvedilol 25 milligrams twice a day. 4. Gabapentin 800 milligrams twice a day. 5. Neurontin 200 milligrams twice a day. ALLERGIES: NO KNOWN DRUG ALLERGIES. PHYSICAL EXAMINATION: VITAL SIGNS: Afebrile, pulse 84, respiratory rate 16, blood pressure 120/74, satting 98 on two liters. GENERAL: A pleasant well-appearing woman in no distress. NECK: No jugular venous distention. CHEST: Left upper chest does show some fluctuance around her ICD site, not obviously erythematous or infected. LUNGS: Clear to auscultation bilaterally. CARDIOVASCULAR: Regular rate and rhythm. No murmurs appreciated. ABDOMEN: Benign. EXTREMITIES: No edema. LABORATORY DATA: White count 5.3, hematocrit 28.7, platelets 89. Initial white count was 11.8. Sodium 142, potassium 3.5, chloride 112, bicarb 22.5, BUN 8, creatinine 0.45, glucose 82. Blood cultures positive for Staph lugdunensis. EKGS: EKG showed sinus bradycardia with left bundle-branch block and first-degree AV block. IMPRESSION: Bacteremia. The patient with history of a defibrillator placement and some symptoms around the defibrillator site presents with bacteremia as well as fevers and chills. There has to be some concern for pacemaker / defibrillator infection. She is currently getting antibiotics. I will have my partner, Dr. Jansen, see her on Wednesday for consideration of defibrillator removal. This is a complex procedure and so I make sure it is discussed fully with him. Further recommendation will based on her clinical course. Thank you again for the opportunity to participate in this patient's care. MD AVI Rajan/ERVIN /5:04 PM /5:16 PM
--- NOTE | 2017-01-23 18:49 | HHI.PR ---
Subjective Interval History Alert, oriented, feeling better, no fever since admission, no chills, no rigors Review of Systems Constitutional Constitutional Remarks As detailed above, 10 systems reviewed and otherwise negative Vitals/Results Intake & Output 01/22/17 01/22/17 01/23/17 15:00 23:00 07:00 Intake Total 1030 ml 795 ml Balance 1030 ml 795 ml Intake Oral 240 ml IV Total 790 ml 795 ml # Voids 2 Vital Signs Vital Signs Date Time Temp Pulse Resp B/P Pulse Ox O2 Delivery O2 Flow Rate FiO2 01/23/17 14:03 20 01/23/17 08:00 98.1 59 20 117/56 95 01/23/17 07:54 67 01/23/17 04:00 97.6 59 20 106/56 94 01/23/17 00:00 97.8 54 20 95/51 95 01/22/17 20:00 97.6 66 20 115/58 97 CBC/BMP: 01/23/17 0620 01/23/17 0620 Lab Results Laboratory Tests Test 01/23/17 06:20 White Blood Count 5.3 TH/MM3 Red Blood Count 3.41 MIL/MM3 Hemoglobin 9.8 GM/DL Hematocrit 28.7 % Mean Corpuscular Volume 84.3 FL Mean Corpuscular Hemoglobin 28.7 PG Mean Corpuscular Hemoglobin 34.1 % Concent Red Cell Distribution Width 15.1 % Platelet Count 89 TH/MM3 Mean Platelet Volume 8.1 FL Neutrophils (%) (Auto) 71.0 % Lymphocytes (%) (Auto) 14.6 % Monocytes (%) (Auto) 12.6 % Eosinophils (%) (Auto) 1.1 % Basophils (%) (Auto) 0.7 % Neutrophils # (Auto) 3.7 TH/MM3 Lymphocytes # (Auto) 0.8 TH/MM3 Monocytes # (Auto) 0.7 TH/MM3 Eosinophils # (Auto) 0.1 TH/MM3 Basophils # (Auto) 0.0 TH/MM3 CBC Comment AUTO DIFF Differential Comment AUTO DIFF CONFIRMED Platelet Estimate LOW Platelet Morphology Comment NORMAL Erythrocyte Sedimentation Rate 52 mm/hr Sodium Level 142 MEQ/L Potassium Level 3.5 MEQ/L Chloride Level 112 MEQ/L Carbon Dioxide Level 22.5 MEQ/L Anion Gap 8 MEQ/L Blood Urea Nitrogen 8 MG/DL Creatinine 0.45 MG/DL Estimat Glomerular Filtration 141 ML/MIN Rate Random Glucose 82 MG/DL Calcium Level 7.7 MG/DL C-Reactive Protein 10.20 MG/DL Rheumatoid Factor Screen POSITIVE Rheumatoid Factor Titer 27.2 IU/ML Monoscreen NEG Microbiology Microbiology 01/23/17 Aerobic Blood Culture, Received Pending 01/23/17 Anaerobic Blood Culture, Received Pending 01/23/17 Aerobic Blood Culture, Received Pending 01/23/17 Anaerobic Blood Culture, Received Pending Physical Exam General General Appearance: Comfortable, Obese Eyes Eye Exam: Pupils Reactive Ears & Nose Ears & Nose Exam: Nasal Mucosa [place] Throat Throat Exam: Oral Mucosa [place] & Moist Neck Neck Exam: Trachea Midline Pulmonary Resp Exam: Breath Sounds Equal Cardiology CV Exam: Normal Sinus Rhythm Gastrointestinal/Abdomen GI Exam: Non-Tender, Bowel Sounds Present Musculoskeletal MS Exam: Normal Gait, Normal Tone Integumentary Skin Exam: Warm, Dry Skin Remarks Less swelling around the ICD pocket over the left upper chest, no redness, no tenderness, no drainage Neurologic Neuro Exam: Alert, Awake, Oriented, Speech Clear, Moving All Extremities, Digital Media Intern Equal, No Focal Deficits Psychiatric Psych Exam: Appropriate Responses VTE Prophylaxis VTE Prophylaxis Meds: Heparin Assessment/Plan Assessment/Plan Assessment Bacteremia with Gram-positive cocci in groups and clusters High-grade fever, none since admission Leukocytosis, resolved Left pleuritic chest pain, resolved CT of the chest is unremarkable Swelling at the ICD site with a sensation that the device has moved laterally, improving Mild metabolic acidosis, improved Borderline elevated Blood sugar Rule out urinary infection Management telemetry intravenous vancomycin, pharmacy to dose Follow Blood cultures Infectious disease is following Echocardiogram pending DVT prophylaxis with low-dose heparin Discussed with patient in detail Discussed with nurse 35 minutes Herman Wang MD Jan 23, 2017 18:48
[2017-01-23] MEDS: VANCOMYCIN 1,000 MG/NS 250 ML IV SCH ×2 (21:08)
[2017-01-24] VITALS (8 sets, daily range): BP systolic 113–135; BP diastolic 54–68; PULSE 60–74; RESP 16–20; TEMP 97.5–98.4; O2SAT 94–99
[2017-01-24] MEDS: SODIUM CHLOR 0.9% 1000 ML INJ 1,000 ML IV SCH ×2 (04:26→22:26)
[2017-01-24] MEDS: ACETAMINOPHEN/HYDROcodone 325 MG/5 MG TAB PO PRN (06:00)
[2017-01-24] MEDS: DOCUSATE SODIUM 50 MG/SENNA 8.6 MG TAB PO SCH ×2 (08:46→20:39)
[2017-01-24] MEDS: CARVEDILOL 12.5 MG TAB PO SCH ×2 (08:46→20:39)
[2017-01-24] MEDS: ASPIRIN 81 MG CHEW TAB CHEW SCH (08:46)
[2017-01-24] MEDS: VANCOMYCIN 1,000 MG/NS 250 ML IV SCH ×2 (08:47)
[2017-01-24] MEDS: GABAPENTIN 100 MG CAP PO SCH (08:48)
[2017-01-24] MEDS: GABAPENTIN 400 MG CAP PO SCH (08:49)
[2017-01-24] MEDS: SODIUM CHLORIDE 0.9% FLUSH 10 ML FLUSH IV FLUSH SCH ×2 (09:00→20:39)
--- NOTE | 2017-01-24 12:25 | HHI.PR ---
Subjective Interval History Alert, oriented, feeling better, no chills, no fever, urinating a lot Review of Systems Constitutional Constitutional Remarks As detailed above, 10 systems reviewed and otherwise negative Vitals/Results Intake & Output 01/23/17 01/23/17 01/24/17 14:59 22:59 06:59 Intake Total 1626 ml 771 ml Output Total 900 ml 900 ml Balance 726 ml -129 ml Intake Oral 960 ml 240 ml IV Total 666 ml 531 ml Output Urine Total 900 ml 900 ml # Bowel Movements 1 1 Vital Signs Vital Signs Date Time Temp Pulse Resp B/P Pulse Ox O2 Delivery O2 Flow Rate FiO2 01/24/17 08:00 97.5 69 20 119/59 95 01/24/17 04:00 98.3 61 18 117/68 97 01/24/17 00:00 98.0 60 16 113/60 97 01/23/17 20:00 97.9 65 16 124/64 97 01/23/17 19:59 68 01/23/17 16:00 97.5 63 20 116/56 96 01/23/17 14:03 20 CBC/BMP: 01/23/17 0620 01/23/17 0620 Physical Exam General General Appearance: Comfortable, Obese Eyes Eye Exam: Pupils Reactive Ears & Nose Ears & Nose Exam: Nasal Mucosa [place] Throat Throat Exam: Oral Mucosa [place] & Moist Neck Neck Exam: Trachea Midline Pulmonary Resp Exam: Breath Sounds Equal Cardiology CV Exam: Normal Sinus Rhythm Gastrointestinal/Abdomen GI Exam: Non-Tender, Bowel Sounds Present Musculoskeletal MS Exam: Normal Gait, Normal Tone Integumentary Skin Exam: Warm, Dry Skin Remarks Less swelling around the ICD pocket over the left upper chest, no redness, no tenderness, no drainage Neurologic Neuro Exam: Alert, Awake, Oriented, Speech Clear, Moving All Extremities, Procurement Agent Equal, No Focal Deficits Psychiatric Psych Exam: Appropriate Responses VTE Prophylaxis VTE Prophylaxis Meds: Heparin Assessment/Plan Assessment/Plan Assessment Bacteremia with Staphylococcus LUGDINENSIS, sensitivity pending High-grade fever prior to admission, none since Leukocytosis, resolved Left pleuritic chest pain, resolved CT of the chest is unremarkable Swelling at the ICD site with a sensation that the device has moved laterally, improving Fasting Blood sugar within normal limits Hypokalemia Management Continue telemetry intravenous vancomycin, pharmacy to dose Follow Blood cultures sensitivities Replace potassium Infectious disease is following Echocardiogram pending, further plans after report DVT prophylaxis with low-dose heparin Discussed with patient in detail Discussed with nurse 35 minutes Herman Wang MD Jan 24, 2017 12:25
[2017-01-24] MEDS: HEPARIN SODIUM - SQ 10,000 UNITS/ML VIAL SQ SCH (14:04)
--- NOTE | 2017-01-24 16:37 | PD.CARD.PN ---
Subjective Subjective Remarks Pt feeling better, no recent chills Objective Medications Administered Medications Medications (Trade) Dose Ordered Sig/[place] Route PRN Reason Start Time Stop Time Status Last Admin Dose Admin Sodium Chloride (NS 1000 ml Inj) 1,000 ml @ 20 mls/hr Q24H IV 01/22/17 12:26 01/24/17 04:26 Sodium Chloride (NS Flush) 2 ml BID IV FLUSH 01/22/17 21:00 01/23/17 08:39 Heparin Sodium (Porcine) (Heparin Inj) 5,000 units Q12H SQ 01/22/17 13:00 01/24/17 14:04 Senna/Docusate Sodium (Iveth-Colace) 1 tab BID PO 01/22/17 21:00 01/24/17 08:46 Aspirin (Aspirin Chew) 81 mg DAILY CHEW 01/23/17 09:00 01/24/17 08:46 Carvedilol (Coreg) 25 mg BID PO 01/22/17 21:00 01/24/17 08:46 Acetaminophen/ Hydrocodone Bitart 1 tab 1 tab Q4H PRN PO pain 5-10 01/22/17 19:00 01/24/17 06:00 Vancomycin HCl/ Sodium Chloride (Vancomycin Inj/ NS 250 ml Inj) 250 ml @ 250 mls/hr Q12H IV 01/23/17 22:00 01/24/17 08:47 Vital Signs / I&O Vital Signs Date Time Temp Pulse Resp B/P Pulse Ox O2 Delivery O2 Flow Rate FiO2 01/24/17 14:28 74 01/24/17 12:00 97.7 63 18 116/54 94 01/24/17 08:00 97.5 69 20 119/59 95 01/24/17 04:00 98.3 61 18 117/68 97 01/24/17 00:00 98.0 60 16 113/60 97 01/23/17 20:00 97.9 65 16 124/64 97 01/23/17 19:59 68 I/O 01/23/17 01/23/17 01/23/17 01/24/17 01/24/17 01/24/17 07:00 15:00 23:00 07:00 15:00 23:00 Intake Total 795 ml 1626 ml 771 ml 956 ml Output Total 900 ml 900 ml Balance 795 ml 726 ml -129 ml 956 ml Intake Oral 960 ml 240 ml IV Total 795 ml 666 ml 531 ml 956 ml Output Urine Total 900 ml 900 ml # Bowel Movements 1 1 Physical Exam GENERAL: This is a well-nourished, well-developed patient, in no apparent distress. CARDIOVASCULAR: Regular rate and rhythm without murmurs, gallops, or rubs. RESPIRATORY: Clear to auscultation. Breath sounds equal bilaterally. No wheezes , rales, or rhonchi. GASTROINTESTINAL: Abdomen soft, non-tender, nondistended. Normal active bowel sounds MUSCULOSKELETAL: Extremities without clubbing, cyanosis, or edema. NEURO: Alert & Oriented x4 to person, place, time, situation. Moves all ext x4 Laboratory Laboratory Tests Test 01/24/17 11:50 Creatinine 0.60 MG/DL Estimat Glomerular Filtration 101 ML/MIN Rate Imaging Last Impressions Chest X-Ray 01/22/17 0951 Signed Impressions: Service Date/Time: Sunday, January 22, 2017 09:51 - CONCLUSION: 1. No acute cardiopulmonary findings. Jared Weinstein MD CT Angiography 01/22/17 0000 Signed Impressions: Service Date/Time: Sunday, January 22, 2017 19:01 - CONCLUSION: No pulmonary embolus or other acute cardiopulmonary disease demonstrated. Homar Ashraf MD Assessment and Plan Problem List: (1) Sepsis Assessment and Plan: continued bacteremia despite abx; ICD pocket/lead infection possible; fortunately patient says LVEF above 35% and has never used the device for shock or ATP; will consult Dr. Jansen tomorrow for consideration of AICD/Lead extraction. Jonathan Doan MD Jan 24, 2017 16:37
--- NOTE | 2017-01-24 18:49 | HHI.IDPN ---
Subjective Subjective Remarks ID X cover for Dr Chauhan growing staph lugdenensis in all blood clx afebrile OOB in chait no nrew co Antibiotics vancomycin Allergies: Coded Allergies: No Known Allergies (Unverified , 11/29/15) Objective . Vital Signs Date Time Temp Pulse Resp B/P Pulse Ox O2 Delivery O2 Flow Rate FiO2 01/24/17 16:00 98.4 61 18 123/63 99 01/24/17 14:28 74 01/24/17 12:00 97.7 63 18 116/54 94 01/24/17 08:00 97.5 69 20 119/59 95 01/24/17 04:00 98.3 61 18 117/68 97 01/24/17 00:00 98.0 60 16 113/60 97 01/23/17 20:00 97.9 65 16 124/64 97 01/23/17 19:59 68 01/23/17 01/23/17 01/24/17 15:00 23:00 07:00 Intake Total 1626 ml 771 ml Output Total 900 ml 900 ml Balance 726 ml -129 ml Intake Oral 960 ml 240 ml IV Total 666 ml 531 ml Output Urine Total 900 ml 900 ml # Bowel Movements 1 1 . Laboratory Tests Test 01/23/17 06:20 White Blood Count 5.3 TH/MM3 Red Blood Count 3.41 MIL/MM3 Hemoglobin 9.8 GM/DL Hematocrit 28.7 % Mean Corpuscular Volume 84.3 FL Mean Corpuscular Hemoglobin 28.7 PG Mean Corpuscular Hemoglobin 34.1 % Concent Red Cell Distribution Width 15.1 % Platelet Count 89 TH/MM3 Mean Platelet Volume 8.1 FL Neutrophils (%) (Auto) 71.0 % Lymphocytes (%) (Auto) 14.6 % Monocytes (%) (Auto) 12.6 % Eosinophils (%) (Auto) 1.1 % Basophils (%) (Auto) 0.7 % Neutrophils # (Auto) 3.7 TH/MM3 Lymphocytes # (Auto) 0.8 TH/MM3 Monocytes # (Auto) 0.7 TH/MM3 Eosinophils # (Auto) 0.1 TH/MM3 Basophils # (Auto) 0.0 TH/MM3 CBC Comment AUTO DIFF Differential Comment AUTO DIFF CONFIRMED Platelet Estimate LOW Platelet Morphology Comment NORMAL Erythrocyte Sedimentation Rate 52 mm/hr Laboratory Tests Test 01/23/17 01/24/17 06:20 11:50 Sodium Level 142 MEQ/L Potassium Level 3.5 MEQ/L Chloride Level 112 MEQ/L Carbon Dioxide Level 22.5 MEQ/L Anion Gap 8 MEQ/L Blood Urea Nitrogen 8 MG/DL Creatinine 0.45 MG/DL 0.60 MG/DL Estimat Glomerular Filtration 141 ML/MIN 101 ML/MIN Rate Random Glucose 82 MG/DL Calcium Level 7.7 MG/DL C-Reactive Protein 10.20 MG/DL Microbiology Date/Time Procedure Status Source Growth 01/22/17 10:05 Aerobic Blood Culture - Preliminary Resulted Blood Peripheral Staphylococcus Species 01/22/17 10:05 Anaerobic Blood Culture - Preliminary Resulted Staphylococcus Lugdunensis 01/22/17 10:05 Influenza Types A,B Antigen (MIHAELA) - Final Complete Nasal Washing NEGATIVE FOR FLU A AND B ANTIGEN.... 01/22/17 10:10 Aerobic Blood Culture - Preliminary Resulted Blood Peripheral Staphylococcus Species 01/22/17 10:10 Anaerobic Blood Culture - Preliminary Resulted Staphylococcus Species 01/23/17 06:20 Aerobic Blood Culture - Preliminary Resulted Blood Peripheral Gram Positive Cocci 01/23/17 06:20 Anaerobic Blood Culture - Preliminary Resulted Blood Peripheral NO GROWTH IN 1 DAY 01/23/17 06:30 Aerobic Blood Culture - Preliminary Resulted Blood Peripheral Gram Positive Cocci 01/23/17 06:30 Anaerobic Blood Culture - Preliminary Resulted Blood Peripheral NO GROWTH IN 1 DAY Imaging Last Impressions Chest X-Ray 01/22/17 0951 Signed Impressions: Service Date/Time: Sunday, January 22, 2017 09:51 - CONCLUSION: 1. No acute cardiopulmonary findings. Jared Weinstein MD CT Angiography 01/22/17 0000 Signed Impressions: Service Date/Time: Sunday, January 22, 2017 19:01 - CONCLUSION: No pulmonary embolus or other acute cardiopulmonary disease demonstrated. Homar Ashraf MD Physical Exam GENERAL: Patient is a well-nourished, well-developed awake and alert, not in respiratory distress. OOB in a chair SKIN: Warm and dry. No generalized rash, no ecchymoses and no evidence of embolic lesions. EYES: [place] conjunctiva. No petechia or hemorrhage. Pupils equal, round and reactive to light. Extraocular movements full and intact. No scleral icterus. No injection or drainage. EARS, NOSE AND THROAT: Mucous membranes pink and moist. No oral lesions noted. No oral thrush. CARDIOVASCULAR: Regular rate and rhythm. Has murmur at the base on heart, no rubs AICD in place L chest, no skin changes around it, but pt thinks it migrates RESPIRATORY: Clear to auscultation. Breath sounds equal bilaterally. No rales , wheezing or rhonchi. ABDOMEN: Soft, non-tender, nondistended. Bowel sounds present and normoactive. No guarding. No rebound. No organomegaly. EXTREMITIES: No clubbing, cyanosis, or edema. No joint effusion, has good ROM. No calf tenderness. Well perfused and warm. NEUROLOGICAL: Awake and alert. Cranial nerves grossly intact. Motor grossly within normal limits. PSYCHIATRIC: Normal affect, calm and cooperative. Assessment & Plan Remarks Fever, resolved on vanco Staph lugdenesis bacteremia in AIDC settings placed in 2007) - suspect AICD i lead associated endocarditis Cardiomyopahty, h/o BBB RECOMMENDATION dc Vanco start Oxacillin fu repeat BC awaiting 2 D echo results Needs MITCHEL to evaluate valve Agree with plan to explant pacemeker Rafaela Dia MD Jan 24, 2017 18:49
--- NOTE | 2017-01-24 18:54 | ECHRPT ---
Indication: murmur CONCLUSIONS Moderately dilated left ventricle. Wall thickness is normal. The left ventricular systolic function is severely reduced with an estimated ejection fraction in th e range of 30-35%. Global hypokinesis. Trace mitral valve regurgitation. There is trace tricuspid valve regurgitation. The estimated pulmonary arterial pressure is 28 mmHg. BP: 117 / 56 HR: 59 Rhythm: Other MEASUREMENTS (Male / Female) Normal Values Technical Quality:Fair 2D ECHO LV Diastolic Diameter PLAX 4.3 cm 4.2 - 5.9 / 3.9 - 5.3 cm LV Systolic Diameter PLAX 3.8 cm IVS Diastolic Thickness 1.0 cm 0.6 - 1.0 / 0.6 - 0.9 cm LVPW Diastolic Thickness 0.8 cm 0.6 - 1.0 / 0.6 - 0.9 cm LV Relative Wall Thickness 0.4 LA Systolic Diameter LX 3.4 cm 3.0 - 4.0 / 2.7 - 3.8 cm M-MODE Aortic Root Diameter MM 2.9 cm AV Cusp Separation MM 1.9 cm DOPPLER Mitral E Point Velocity 63.2 cm/s Mitral A Point Velocity 80.9 cm/s Mitral E to A Ratio 0.8 LV E' Lateral Velocity 5.5 cm/s Mitral E to LV E' Lateral Ratio 11.6 LV E' Septal Velocity 4.0 cm/s Mitral E to LV E' Septal Ratio 15.8 TR Peak Velocity 181.0 cm/s TR Peak Gradient 13.1 mmHg FINDINGS LEFT VENTRICLE Moderately dilated left ventricle. Wall thickness is normal. The left ventricular systolic function is severely reduced with an estimated ejection fraction in th e range of 30-35%. RIGHT VENTRICLE Normal right ventricular size and systolic function. LEFT ATRIUM The left atrial size is normal. RIGHT ATRIUM The right atrial size is normal. ATRIAL SEPTUM Normal atrial septal thickness without atrial level shunting by limited color doppler interrogation. AORTA The aortic root and proximal ascending aorta are normal in size on limited imaging. MITRAL VALVE Trace mitral valve regurgitation. AORTIC VALVE Trileaflet aortic valve. No aortic valve stenosis or regurgitation. TRICUSPID VALVE There is trace tricuspid valve regurgitation. The estimated pulmonary arterial pressure is 28 mmHg. PULMONARY VALVE The pulmonary valve is not well visualized. VESSELS The inferior vena cava is normal in size. PERICARDIUM No pericardial effusion. Jonathan Doan MD (Electronically Signed) Final Date:24 January 2017 18:53
[2017-01-24] MEDS: OXACILLIN INJ 2 GM in SODIUM CHLORIDE 0.9% INJ 100 ML IV SCH (20:39)
[2017-01-24] MEDS ORDERED: PHARMACY ORDERED LAB ONE (21:45)
[2017-01-25] VITALS (8 sets, daily range): BP systolic 108–145; BP diastolic 59–75; PULSE 57–73; RESP 18–20; TEMP 97.7–98.2; O2SAT 94–97
[2017-01-25] MEDS: OXACILLIN INJ 2 GM in SODIUM CHLORIDE 0.9% INJ 100 ML IV SCH ×7 (00:05→23:45)
[2017-01-25] MEDS: HEPARIN SODIUM - SQ 10,000 UNITS/ML VIAL SQ SCH ×3 (00:07→23:45)
[2017-01-25] MEDS ORDERED: PHARMACY ORDERED LAB ONE (03:45)
[2017-01-25] MEDS: CARVEDILOL 12.5 MG TAB PO SCH ×2 (08:28→20:43)
[2017-01-25] MEDS: ASPIRIN 81 MG CHEW TAB CHEW SCH (08:28)
[2017-01-25] MEDS: SODIUM CHLORIDE 0.9% FLUSH 10 ML FLUSH IV FLUSH SCH ×2 (08:28→20:44)
[2017-01-25] MEDS: DOCUSATE SODIUM 50 MG/SENNA 8.6 MG TAB PO SCH ×2 (08:29→20:44)
[2017-01-25] MEDS: ONDANSETRON HCL 4 MG/2 ML VIAL IVP PRN (11:15)
--- NOTE | 2017-01-25 13:01 | HHI.IDPN ---
Subjective Subjective Remarks Patient is a 61-year-old female, was been having intermittent fevers in the last 3 weeks. The fever would occur at any time of the day. Over the last week the fevers have been more persistent. She would occasionally have rigors. She denies any night sweats. She's also had some sore throat, but denies any swallowing difficulty. There's been no cough or any shortness of breath. Son has some left-sided headache which is more all an achy type pain. She's had some nausea but no shree vomiting. She's also started having pain on the left side of her chest under her breasts. She has not had any urinary complaint. She has some mild achiness in her left arm. No significant back pain. No skin rash, no joint swelling noted. Her last travel was within the last year and he was in [place]. She has dogs and cats in her home but they've been with her for a while. No exposure to any other animals. No exposure to any sick child. She saw her primary care physician, and was supposed to get some blood work done. She's had about 6 pound weight loss in the last 3 weeks. Her appetite has been poor. She's had mammogram that was normal. Her last colonoscopy was about a year ago and that was okay. She has not had any Pap smear, since according to her she's had a hysterectomy done. Since admission she's had a fever of 103.1. Urinalysis has some hematuria. WBC is mildly elevated. Her LFTs are unremarkable. Chest x-rays normal.ID Notes reviewed Temps better BC with Teresa fraser Echo noted Awaiting input from Dr Jansen CT chest with multiple granulomas No new complaints ESR 52 CRP 10 Antibiotics Oxacillin Lines PIV Past Medical History Chronic systolic heart failure Ejection fraction 35% Recurrent urinary infection Hypertension Possible Hyperlipidemia Small bowel obstruction Torn ligaments of the right knee Right lower extremity DVT, completed 3 months of oral anticoagulation Past Surgical History Defibrillator insertion Hysterectomy complicated with bowel perforation partial colectomy Allergies: Coded Allergies: No Known Allergies (Unverified , 11/29/15) Objective . Vital Signs Date Time Temp Pulse Resp B/P Pulse Ox O2 Delivery O2 Flow Rate FiO2 01/25/17 08:23 Room Air 01/25/17 08:23 72 01/25/17 08:00 98.2 73 20 127/72 95 01/25/17 04:00 Room Air 01/25/17 04:00 97.7 64 19 108/59 95 01/25/17 00:00 Room Air 01/25/17 00:00 98.0 57 18 123/62 97 01/24/17 20:23 70 01/24/17 20:00 97.6 62 17 135/67 98 01/24/17 20:00 Room Air 01/24/17 16:00 98.4 61 18 123/63 99 01/24/17 14:28 74 01/24/17 01/24/17 01/25/17 15:00 23:00 07:00 Intake Total 1436 ml 893 ml 318 ml Output Total 900 ml Balance 1436 ml -7 ml 318 ml Intake Oral 480 ml IV Total 956 ml 893 ml 318 ml Output Urine Total 900 ml # Voids 3 2 # Bowel Movements 0 0 . Laboratory Tests Test 01/24/17 11:50 Creatinine 0.60 MG/DL Estimat Glomerular Filtration 101 ML/MIN Rate Microbiology Date/Time Procedure Status Source Growth 01/23/17 06:20 Aerobic Blood Culture - Preliminary Resulted Blood Peripheral Staph Sp Coagulase Negative 01/23/17 06:20 Anaerobic Blood Culture - Preliminary Resulted Blood Peripheral NO GROWTH IN 2 DAYS 01/23/17 06:30 Aerobic Blood Culture - Preliminary Resulted Blood Peripheral Staph Sp Coagulase Negative 01/23/17 06:30 Anaerobic Blood Culture - Preliminary Resulted Blood Peripheral NO GROWTH IN 2 DAYS Imaging Last Impressions Chest X-Ray 01/22/17 0951 Signed Impressions: Service Date/Time: Sunday, January 22, 2017 09:51 - CONCLUSION: 1. No acute cardiopulmonary findings. Jared Weinstein MD CT Angiography 01/22/17 0000 Signed Impressions: Service Date/Time: Sunday, January 22, 2017 19:01 - CONCLUSION: No pulmonary embolus or other acute cardiopulmonary disease demonstrated. Homar Ashraf MD Physical Exam GENERAL: awake and alert, not in respiratory distress. OOB in a chair SKIN: Warm and dry. No generalized rash, no ecchymoses and no evidence of embolic lesions. EYES: Carmen conjunctiva. No petechia or hemorrhage. Pupils equal, round and reactive to light. Extraocular movements full and intact. No scleral icterus. No injection or drainage. EARS, NOSE AND THROAT: Mucous membranes pink and moist. No oral lesions noted. No oral thrush. CARDIOVASCULAR: Regular rate and rhythm. Has murmur at the base on heart, no rubs AICD in place L chest, no skin changes around it, but pt thinks it migrates RESPIRATORY: Clear to auscultation. Breath sounds equal bilaterally. No rales , wheezing or rhonchi. ABDOMEN: Soft, non-tender, nondistended. Bowel sounds present and normoactive. No guarding. No rebound. No organomegaly. EXTREMITIES: No clubbing, cyanosis, or edema. No joint effusion, has good ROM. No calf tenderness. Well perfused and warm. NEUROLOGICAL: Non-focal PSYCHIATRIC: Normal affect, calm and cooperative. 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
--- NOTE | 2017-01-25 14:13 | HHI.PR ---
Subjective Subjective Remarks no fever no rigors no chills no cp no sob loose stools, improving no abd. pain (Savi Fontenot) Review of Systems Constitutional Constitutional Remarks 12 point ROS completed, negative except as noted above (Savi Fontenot) Vitals/Results Intake & Output 01/24/17 01/24/17 01/25/17 15:00 23:00 07:00 Intake Total 1436 ml 893 ml 318 ml Output Total 900 ml Balance 1436 ml -7 ml 318 ml Intake Oral 480 ml IV Total 956 ml 893 ml 318 ml Output Urine Total 900 ml # Voids 3 2 # Bowel Movements 0 0 Vital Signs Vital Signs Date Time Temp Pulse Resp B/P Pulse Ox O2 Delivery O2 Flow Rate FiO2 01/25/17 12:00 98.0 60 20 131/68 97 01/25/17 08:23 Room Air 01/25/17 08:23 72 01/25/17 08:00 98.2 73 20 127/72 95 01/25/17 04:00 Room Air 01/25/17 04:00 97.7 64 19 108/59 95 01/25/17 00:00 Room Air 01/25/17 00:00 98.0 57 18 123/62 97 01/24/17 20:23 70 01/24/17 20:00 97.6 62 17 135/67 98 01/24/17 20:00 Room Air 01/24/17 16:00 98.4 61 18 123/63 99 01/24/17 14:28 74 (Savi Fontenot) CBC/BMP: 01/23/17 0620 01/24/17 1150 Physical Exam General General Appearance: Well Developed, Comfortable, Obese (Savi Fontenot) Eyes Eye Exam: Pupils Equal, Pupils Reactive, Extraocular Movement Intact (Savi Fontenot) Ears & Nose Ears & Nose Exam: Nasal Mucosa [place] (Savi Fontenot) Throat Throat Exam: Oral Mucosa [place] & Moist (Savi FontenotP) Neck Neck Exam: Neck Supple, Trachea Midline (Savi FontenotP) Pulmonary Resp Exam: Breath Sounds Equal (Savi Fontenot) Cardiology CV Exam: Regular, Normal Sinus Rhythm (Savi FontenotP) Gastrointestinal/Abdomen GI Exam: Soft, Non-Tender, Bowel Sounds Present, Non-Distended (Savi Fontenot) Musculoskeletal MS Exam: Normal Gait, Normal Tone (Savi Fontenot) Integumentary Skin Exam: Warm, Dry (Savi Fontenot) Extremeties Extremities Exam: No Edema, Pedal Pulses Palpable (Savi Fontenot) Neurologic Neuro Exam: Alert, Awake, Oriented, Speech Clear, Moving All Extremities, [employer] Equal, No Focal Deficits (Savi Fontenot) Psychiatric Psych Exam: Appropriate Responses (Savi Fontenot) VTE Prophylaxis VTE Prophylaxis Meds: Heparin (Savi Fontenot) Assessment/Plan Assessment/Plan Assessment Bacteremia with Staphylococcus LUGDINENSIS, sensitivity pending High-grade fever prior to admission, none since Leukocytosis, resolved Left pleuritic chest pain, resolved CT of the chest is unremarkable Swelling at the ICD site with a sensation that the device has moved laterally, improving Fasting Blood sugar within normal limits Hypokalemia Management Appreciate consultants input, cardiology, ID Patient on oxacillin now Continue to follow blood cultures Cardiology consultation for MITCHEL Patient is going to require AICD explantation Echo done, EF 30-35% Positive rheumatoid factor, significance unknown We'll need to follow up with rheumatology as outpatient Continue with home care DVT prophylaxis with low-dose heparin Repeat labs in the morning We will keep nothing by mouth after midnight for possible MITCHEL in the morning Discussed with patient and family Discussed with RN Discussed with Dr. Wang This patient was seen by myself and Dr. Wang, this note is written on his behalf (Savi Fontenot) Assessment/Plan seen, examined by myself, Dr Wang, today Discussed with patient Discussed with infectious disease specialist She is to have explantation of her ICD this admission Continue antibiotics Discussed with mid level provider The exam, history, and the medical decision-making described in the above note were completed with the assistance of the mid-level provider. I reviewed the findings presented. I attest that I had a [id number] encounter with the patient on the same day, and personally performed and documented my assessment and findings in the medical record. (Herman Wang MD) Savi Fontenot Jan 25, 2017 14:13 Herman Wang MD Jan 25, 2017 16:37
[2017-01-25 14:45] LABS: ANA SCREEN NEG (NEG)
[2017-01-25] MEDS: SODIUM CHLOR 0.9% 1000 ML INJ 1,000 ML IV SCH (23:45)
[2017-01-26 01:11] VITALS: BP 136/78; PULSE 68; RESP 18; TEMP 98.1; O2SAT 96
[2017-01-26 02:27] LABS: EBV VCA IgM Positive (Negative)
[2017-01-26] MEDS: OXACILLIN INJ 2 GM in SODIUM CHLORIDE 0.9% INJ 100 ML IV SCH ×5 (04:04→20:59)
[2017-01-26] MEDS: ACETAMINOPHEN 325 MG TAB PO PRN ×2 (04:07→23:05)
[2017-01-26 05:26] VITALS: BP 103/70; PULSE 57; RESP 18; TEMP 97.9; O2SAT 95
--- NOTE | 2017-01-26 06:23 | MB ---
cc: TI FERREIRA HANSCY M.D. DATE OF CONSULTATION 01/25/2017 REASON FOR CONSULTATION Bacteremia, infected device. 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 She has a previous defibrillator implanted around 8 years ago. The generator was exchanged in 2014. She was having on and off fever and tiredness. There was redness around the device site. You could see the protrusion of the device through the skin. She was admitted due to tiredness and fever. Antibiotic infusion was initiated. The patient's condition improved. Blood culture positive for Staph. I was consulted for evaluation and management. The chart was reviewed. The patient was evaluated. ALLERGIES None. SOCIAL HISTORY Negative for smoking. Drinks occasionally. FAMILY HISTORY Noncontributory to her current medical condition. MEDICATIONS Currently she is on - 1. Oxacillin 2 grams IV q.4 hours. 2. She was on vancomycin. 3. She is on Coreg 25 mg twice a day. 4. Aspirin 81 mg a day. 5. She is on heparin subcu. 6. Magnesium. 7. She is on Senokot. REVIEW OF SYSTEMS The patient currently refers no chest pain, no chest discomfort, feeling better. No vomiting. No fever. PHYSICAL EXAMINATION GENERAL: Alert, fully oriented. VITAL SIGNS: Her blood pressure was 131/68, pulse 60, respiratory rate 18. LUNGS: Ventilated. CARDIOVASCULAR: S1, S2. No gallop. No murmur. ABDOMEN: Soft. No mass. Obese. EXTREMITIES: No edema. SKIN: Left infraclavicular area with a pacer pocket. LABORATORY DATA Hemoglobin 9.8, white blood cell 5.3. Potassium 3.5, creatinine 0.45. ASSESSMENT AND RECOMMENDATIONS Mrs. Taylor has bacteriemia. She has a device. She is symptomatic. She is on IV antibiotics. There is protrusion of the border of the device through the skin. The redness and infection resolved because the patient is on IV antibiotics. The generator needs to be removed as well as the lead. The risks, the nature and the benefit of the procedure are clearly stated to the patient. The risks include pneumothorax, cardiac perforation, stroke, need for open heart surgery and even . She understood and agreed to proceed. I discussed the case over the phone with Dr. Amin. Ejection fraction is still 30%. She will need a new device. I will consider the possibility of a subpectoral defibrillator in her case. For now I am going to hold her aspirin, consult Dr. Amin. She will possibly need a MITCHEL. I will closely monitor her during the hospitalization. Lyndsey Jansen MD HS/SSB /6:35 PM /6:16 AM
[2017-01-26 07:01] LABS: HEMATOCRIT 30.8 % (35.0-46.0); MEAN CELL VOLUME 84.4 FL (80.0-100.0); MEAN CORPUSCULAR HEMOGLOBIN 28.4 PG (27.0-34.0); MEAN CORPUSCULAR HGB CONC 33.7 % (32.0-36.0); PLATELET COUNT 152 TH/MM3 (150-450); RED BLOOD COUNT 3.65 MIL/MM3 (4.00-5.30); RED CELL DISTRIBUTION WIDTH 14.9 % (11.6-17.2); REVIEW FLAG FINAL; WHITE BLOOD COUNT 3.6 TH/MM3 (4.0-11.0)
[2017-01-26 07:12] LABS: BICARBONATE 23.8 MEQ/L (21.0-32.0); POTASSIUM 3.8 MEQ/L (3.5-5.1)
[2017-01-26] MEDS: LISINOPRIL 10 MG TAB PO SCH (07:57)
[2017-01-26 08:00] VITALS: BP 116/68; PULSE 60; PULSE 65; RESP 20; TEMP 97.8; O2SAT 96
[2017-01-26] MEDS: SODIUM CHLORIDE 0.9% FLUSH 10 ML FLUSH IV FLUSH SCH ×3 (08:00→21:00)
[2017-01-26] MEDS: DOCUSATE SODIUM 50 MG/SENNA 8.6 MG TAB PO SCH ×2 (08:00→21:00)
[2017-01-26] MEDS: ASPIRIN 81 MG CHEW TAB CHEW SCH (08:00)
[2017-01-26] MEDS: CARVEDILOL 12.5 MG TAB PO SCH ×2 (08:00→20:59)
--- NOTE | 2017-01-26 08:05 | PD.CARD.PN ---
Subjective Subjective Remarks No complaints today. Feels tired. Objective Medications Current Medications Medications (Trade) Dose Ordered Sig/[place] Route Start Time Stop Time Status Last Admin (NS 1000 ml Inj) 1,000 ml @ 20 mls/hr Q24H IV 01/22/17 12:26 01/25/17 23:45 (NS Flush) 2 ml UNSCH PRN IV FLUSH 01/22/17 12:30 (NS Flush) 2 ml BID IV FLUSH 01/22/17 21:00 01/25/17 08:28 (Zofran Inj) 4 mg Q6H PRN IVP 01/22/17 12:30 01/25/17 11:15 (Heparin Inj) 5,000 units Q12H SQ 01/22/17 13:00 01/25/17 23:45 (Narcan Inj) 0.4 mg UNSCH PRN IV 01/22/17 12:30 (Iveth-Colace) 1 tab BID PO 01/22/17 21:00 01/24/17 08:46 (Milk Of Magnesia Liq) 30 ml Q12H PRN PO 01/22/17 12:30 (Senokot) 17.2 mg Q12H PRN PO 01/22/17 12:30 (Dulcolax Supp) 10 mg DAILY PRN RECTAL 01/22/17 12:30 (Lactulose Liq) 30 ml DAILY PRN PO 01/22/17 12:30 (Aspirin Chew) 81 mg DAILY CHEW 01/23/17 09:00 01/25/17 08:28 (Coreg) 25 mg BID PO 01/22/17 21:00 01/25/17 20:43 (Tylenol) 650 mg Q4H PRN PO 01/22/17 19:00 01/26/17 04:07 Acetaminophen/ Hydrocodone Bitart 1 tab 1 tab Q4H PRN PO 01/22/17 19:00 01/24/17 06:00 (Prostaphlin Inj/ NS Inj) 100 ml @ 200 mls/hr Q4H IV 01/24/17 20:00 01/26/17 07:58 (Prinivil) 10 mg DAILY PO 01/26/17 09:00 01/26/17 07:57 Vital Signs / I&O Vital Signs Date Time Temp Pulse Resp B/P Pulse Ox O2 Delivery O2 Flow Rate FiO2 01/26/17 05:26 97.9 57 18 103/70 95 01/26/17 04:00 Room Air 01/26/17 01:11 98.1 68 18 136/78 96 01/26/17 00:00 Room Air 01/25/17 20:34 98.0 67 18 145/75 94 01/25/17 20:00 63 01/25/17 20:00 Room Air 01/25/17 16:00 98.1 69 20 136/72 95 01/25/17 12:00 98.0 60 20 131/68 97 01/25/17 08:23 Room Air 01/25/17 08:23 72 I/O 01/25/17 01/25/17 01/25/17 01/26/17 01/26/17 01/26/17 07:00 15:00 23:00 07:00 15:00 23:00 Intake Total 318 ml 911 ml 274 ml 796 ml Balance 318 ml 911 ml 274 ml 796 ml Intake Oral 480 ml 480 ml IV Total 318 ml 431 ml 274 ml 316 ml # Voids 2 4 # Bowel Movements 0 3 Physical Exam GENERAL: Well-nourished, well-developed patient. SKIN: Warm and dry. Left chest wall with evident device with erosion. Mild erythema. HEAD: Normocephalic. EYES: No scleral icterus. No injection or drainage. NECK: Supple, trachea midline. No JVD or lymphadenopathy. CARDIOVASCULAR: Regular rate and rhythm without murmurs, gallops, or rubs. RESPIRATORY: Breath sounds equal bilaterally. No accessory muscle use. GASTROINTESTINAL: Abdomen soft, non-tender, nondistended. EXTREMITIES: No cyanosis, or edema. NEUROLOGICAL: Awake, alert, and oriented x 3. Non-focal. Laboratory Laboratory Tests Test 01/26/17 06:22 White Blood Count 3.6 Red Blood Count 3.65 Hemoglobin 10.4 Hematocrit 30.8 Mean Corpuscular Volume 84.4 Mean Corpuscular Hemoglobin 28.4 Mean Corpuscular Hemoglobin 33.7 Concent Red Cell Distribution Width 14.9 Platelet Count 152 Mean Platelet Volume 7.7 Sodium Level 143 Potassium Level 3.8 Chloride Level 110 Carbon Dioxide Level 23.8 Anion Gap 9 Blood Urea Nitrogen 6 Creatinine 0.58 Estimat Glomerular Filtration 105 Rate Random Glucose 85 Calcium Level 8.5 Date/Time Procedure Status Source Growth 01/26/17 06:22 Aerobic Blood Culture Received Blood Peripheral Pending 01/26/17 06:22 Anaerobic Blood Culture Received Blood Peripheral Pending 01/23/17 06:30 Aerobic Blood Culture - Preliminary Resulted Blood Peripheral Staph Sp Coagulase Negative 01/23/17 06:30 Anaerobic Blood Culture - Preliminary Resulted Blood Peripheral NO GROWTH IN 2 DAYS 01/22/17 10:05 Influenza Types A,B Antigen (MIHAELA) - Final Complete Nasal Washing NEGATIVE FOR FLU A AND B ANTIGEN.... 01/22/17 10:05 Aerobic Blood Culture - Final Complete Blood Peripheral Staphylococcus [place]ensis 01/22/17 10:05 Anaerobic Blood Culture - Final Complete Staphylococcus Lugd[place]ensis Laboratory Tests Test 01/26/17 06:22 White Blood Count 3.6 TH/MM3 Red Blood Count 3.65 MIL/MM3 Hemoglobin 10.4 GM/DL Hematocrit 30.8 % Mean Corpuscular Volume 84.4 FL Mean Corpuscular Hemoglobin 28.4 PG Mean Corpuscular Hemoglobin 33.7 % Concent Red Cell Distribution Width 14.9 % Platelet Count 152 TH/MM3 Mean Platelet Volume 7.7 FL Sodium Level 143 MEQ/L Potassium Level 3.8 MEQ/L Chloride Level 110 MEQ/L Carbon Dioxide Level 23.8 MEQ/L Anion Gap 9 MEQ/L Blood Urea Nitrogen 6 MG/DL Creatinine 0.58 MG/DL Estimat Glomerular Filtration 105 ML/MIN Rate Random Glucose 85 MG/DL Calcium Level 8.5 MG/DL Imaging Last Impressions Chest X-Ray 01/22/17 0951 Signed Impressions: Service Date/Time: Sunday, January 22, 2017 09:51 - CONCLUSION: 1. No acute cardiopulmonary findings. Jared Weinstein MD CT Angiography 01/22/17 0000 Signed Impressions: Service Date/Time: Sunday, January 22, 2017 19:01 - CONCLUSION: No pulmonary embolus or other acute cardiopulmonary disease demonstrated. Homar Ashraf MD Assessment and Plan Problem List: (1) Sepsis Assessment and Plan: Pending evaluation for lead extraction by Dr. Daily. EF 30-35% per echo. She will need re-implantation of ICD. Consideration of sub- pectoral implantation under consideration by Dr. Jansen. Further management pending Dr. Daily evaluation. Assessment and plan discussed with patient, RN, Dr. Jansen. Vannessa Tello Jan 26, 2017 08:05
[2017-01-26 12:00] VITALS: BP 138/77; PULSE 69; RESP 20; TEMP 98; O2SAT 95
--- NOTE | 2017-01-26 12:16 | HHI.PR ---
Subjective Subjective Remarks no fever no rigors no chills no cp no sob loose stools, improving no abd. pain no acute changes overnight seen by Dr. Jansen last night Review of Systems Constitutional Constitutional Remarks 12 point ROS completed, negative except as noted above Vitals/Results Intake & Output 01/25/17 01/25/17 01/26/17 15:00 23:00 07:00 Intake Total 911 ml 274 ml 796 ml Balance 911 ml 274 ml 796 ml Intake Oral 480 ml 480 ml IV Total 431 ml 274 ml 316 ml # Voids 4 # Bowel Movements 3 Vital Signs Vital Signs Date Time Temp Pulse Resp B/P Pulse Ox O2 Delivery O2 Flow Rate FiO2 01/26/17 08:00 97.8 65 20 116/68 96 01/26/17 05:26 97.9 57 18 103/70 95 01/26/17 04:00 Room Air 01/26/17 01:11 98.1 68 18 136/78 96 01/26/17 00:00 Room Air 01/25/17 20:34 98.0 67 18 145/75 94 01/25/17 20:00 63 01/25/17 20:00 Room Air 01/25/17 16:00 98.1 69 20 136/72 95 CBC/BMP: 01/26/17 0622 01/26/17 0622 Lab Results Laboratory Tests Test 01/26/17 06:22 White Blood Count 3.6 TH/MM3 Red Blood Count 3.65 MIL/MM3 Hemoglobin 10.4 GM/DL Hematocrit 30.8 % Mean Corpuscular Volume 84.4 FL Mean Corpuscular Hemoglobin 28.4 PG Mean Corpuscular Hemoglobin 33.7 % Concent Red Cell Distribution Width 14.9 % Platelet Count 152 TH/MM3 Mean Platelet Volume 7.7 FL Sodium Level 143 MEQ/L Potassium Level 3.8 MEQ/L Chloride Level 110 MEQ/L Carbon Dioxide Level 23.8 MEQ/L Anion Gap 9 MEQ/L Blood Urea Nitrogen 6 MG/DL Creatinine 0.58 MG/DL Estimat Glomerular Filtration 105 ML/MIN Rate Random Glucose 85 MG/DL Calcium Level 8.5 MG/DL Microbiology Microbiology 01/25/17 Aerobic Blood Culture - Preliminary, Resulted NO GROWTH IN 1 DAY 01/25/17 Anaerobic Blood Culture - Final, Resulted QNS - SEE AEROBE REPORT 01/26/17 Aerobic Blood Culture, Received Pending 01/26/17 Anaerobic Blood Culture, Received Pending Physical Exam General General Appearance: Well Developed, Comfortable, Obese Eyes Eye Exam: Pupils Equal, Pupils Reactive, Extraocular Movement Intact Ears & Nose Ears & Nose Exam: Nasal Mucosa [place] Throat Throat Exam: Oral Mucosa [place] & Moist Neck Neck Exam: Neck Supple, Trachea Midline Pulmonary Resp Exam: Breath Sounds Equal Cardiology CV Exam: Regular, Normal Sinus Rhythm Gastrointestinal/Abdomen GI Exam: Soft, Non-Tender, Bowel Sounds Present, Non-Distended Musculoskeletal MS Exam: Normal Gait, Normal Tone Integumentary Skin Exam: Warm, Dry Extremeties Extremities Exam: No Edema, Pedal Pulses Palpable Neurologic Neuro Exam: Alert, Awake, Oriented, Speech Clear, Moving All Extremities, Msw Equal, No Focal Deficits Psychiatric Psych Exam: Appropriate Responses VTE Prophylaxis VTE Prophylaxis Meds: Heparin Assessment/Plan Assessment/Plan Assessment Bacteremia with Staphylococcus LUGDIUNENSIS, sensitivity noted High-grade fever prior to admission, none since Leukocytosis, resolved Left pleuritic chest pain, resolved CT of the chest is unremarkable Swelling at the ICD site with a sensation that the device has moved laterally, improving Fasting Blood sugar within normal limits Hypokalemia Management Appreciate consultants input, cardiology, ID Patient on oxacillin now BC + Staphylococcus LUGDIUNENSIS, sensitivity noted Cardiology consultation for MITCHEL recommended consultation with Dr. Amin for AICD explantation Echo done, EF 30-35% Positive rheumatoid factor, significance unknown We'll need to follow up with rheumatology as outpatient Continue with home care DVT prophylaxis with low-dose heparin labs reviewed stable no MITCHEL planned for today, poss MITCHEL with AICD explantation on Wednesday Discussed with patient and family Discussed with RN Discussed with Dr. Wang Discussed with Lise WALSH This patient was seen by myself and Dr. Wang, this note is written on his behalf Savi Fontenot Jan 26, 2017 12:16
[2017-01-26] MEDS: HEPARIN SODIUM - SQ 10,000 UNITS/ML VIAL SQ SCH (12:22)
[2017-01-26 16:00] VITALS: BP 138/77; PULSE 69; RESP 20; TEMP 97.8; O2SAT 97
[2017-01-26] MEDS ORDERED: CEFAZOLIN INJ 500 MG in SODIUM CHLORIDE 0.9% IRR BTL 500 ML IRRIGATION SCH (17:45)
[2017-01-26] MEDS ORDERED: SODIUM CHLORIDE 0.9% FLUSH 10 ML FLUSH IV FLUSH PRN (17:45)
[2017-01-26] MEDS ORDERED: ceFAZolin 2 GM PREMIX 50 ML IV SCH (17:45)
[2017-01-26] MEDS ORDERED: CHLORHEXIDINE GLUCONATE 4% SOLN 120 ML BTL TOPICAL SCH (17:45)
--- NOTE | 2017-01-26 18:49 | MB ---
cc: BETTY DAILY MD DATE OF CONSULTATION 01/26/17 1954 HISTORY OF PRESENT ILLNESS A 61 year old female, patient of Dr. Jansen and Dr. Surya Baig, who has history of congestive heart failure, cardiomyopathy who initially was found to have an EF of 15% but improved to 35%. She had an0 AICD placed in 2007 with a generator change in 2014 at that time, by Dr. Jones over at [facility] in [facility]. She started noticing some left lower back pain about a month ago with some chills and fevers. They thought initially it was a kidney infection. She was started on some Cipro but then redeveloped the chills and fevers. She noticed that her ICD pocket site had moved more toward her left axillary area. She was then admitted and found to have staph in her aerobic and anaerobic in 4/4 bottles. Her influenza was negative. She also grew again the staph coag-negative in the aerobic blood culture. She initially presented with fevers up to 103. She denied any shortness of breath, lightheadedness, dizziness or syncope. She did have this ache in her left side around her defibrillator pocket site. She has been treated with IV antibiotics. We were consulted to evaluate for internal cardiac defibrillator and lead extraction. The patient's last echo on the showed an ejection fraction of 30-35%, global hypokinesis, trace mitral valve regurgitation, trace tricuspid valve regurgitation, left ventricular systolic function severely reduced. PAST MEDICAL HISTORY 1. History of cardiomyopathy, 2. CHF 3. Systolic heart failure with prior EF of 15% which improved to 30-35%, 4. Hypertension, 5. Hyperlipidemia. PAST SURGICAL HISTORY As above with the actual ICD placement in 2007 with generator change out 2014. No known allergies MEDICATIONS Home include 1. Coreg 25 b.i.d. 2. Gabapentin 800 b.i.d. 3. Neurontin 200 daily b.i.d. 4. Aspirin 81 daily. REVIEW OF SYSTEMS As above in the HPI. Other 12 system unremarkable. PHYSICAL EXAMINATION VITAL SIGNS: Blood pressure 130/70, heart rate 70, temperature 97.8, O2 sat 97 on room air. GENERAL: Patient is awake, alert in no acute distress HEENT: Head is normocephalic, atraumatic. Pupils equal and reactive. Oral mucosa pink, moist. NECK: Supple. No JVD. CARDIAC: Heart sounds S1-S2 regular rate and rhythm. No rubs or gallops. LUNGS: Clear to auscultation. No wheezes, rales or rhonchi. ABDOMEN: Soft, nontender. No masses or organomegaly. EXTREMITIES: No cyanosis, clubbing or edema. SKIN: She has a left infraclavicular area with pacer pocket, some fluctuance, some mild swelling and some tenderness. The pocket seems to be more over towards the left axilla area. LABORATORY DATA Hemoglobin 10.4, hematocrit 30, white cell count 3.6, platelet count 152. Sodium 143, potassium 3.8, BUN of six, creatinine 0.58. Urinalysis is unremarkable. Rheumatoid factor positive. ROCIO negative, EBV IgG is positive, IgM positive. [place] screen is negative. Micro as above. Repeat blood cultures pending today. IMAGING STUDIES CT of the chest - No pulmonary emboli or other acute disease. Chest x-ray was unremarkable. CARDIOLOGY STUDIES EKG showed sinus tach with some left bundle-branch block. IMPRESSION This is a very unfortunate 61-year-old female with history of CHF, cardiomyopathy that has now presented with bacteremia with ICD device with symptomatic growing staph in the blood. RECOMMENDATION Internal cardiac defibrillator and lead extraction. She will be scheduled for Wednesday. Procedures, alternatives and risks have been discussed by Dr. Betty Daily. Further workup is still pending. Dictated by NICO Santana MD CARLOS Pope/ /5:34 PM /8:18 AM
[2017-01-26 20:00] VITALS: BP 126/64; PULSE 72; PULSE 79; RESP 18; TEMP 97.8; O2SAT 95
[2017-01-26] MEDS: SODIUM CHLOR 0.9% 1000 ML INJ 1,000 ML IV SCH (21:01)
[2017-01-27] VITALS (9 sets, daily range): BP systolic 119–141; BP diastolic 58–75; PULSE 58–116; RESP 16–18; TEMP 97.5–99; O2SAT 93–97
[2017-01-27] MEDS: HEPARIN SODIUM - SQ 10,000 UNITS/ML VIAL SQ SCH ×2 (00:09→12:18)
[2017-01-27] MEDS: OXACILLIN INJ 2 GM in SODIUM CHLORIDE 0.9% INJ 100 ML IV SCH ×6 (00:10→20:10)
[2017-01-27] MEDS: SODIUM CHLORIDE 0.9% FLUSH 10 ML FLUSH IV FLUSH SCH ×4 (09:00→20:10)
[2017-01-27] MEDS: DOCUSATE SODIUM 50 MG/SENNA 8.6 MG TAB PO SCH ×2 (09:00→20:10)
[2017-01-27] MEDS: LISINOPRIL 10 MG TAB PO SCH (09:38)
[2017-01-27] MEDS: ASPIRIN 81 MG CHEW TAB CHEW SCH (09:38)
[2017-01-27] MEDS: CARVEDILOL 12.5 MG TAB PO SCH ×2 (09:38→20:09)
--- NOTE | 2017-01-27 13:06 | HHI.PR ---
Subjective Subjective Remarks no fever no rigors no chills no cp no sob loose stools, improving no abd. pain has been walking Review of Systems Constitutional Constitutional Remarks 12 point ROS completed, negative except as noted above Vitals/Results Intake & Output 01/26/17 01/26/17 01/27/17 14:59 22:59 06:59 Intake Total 878 ml 804 ml Output Total 1600 ml 750 ml Balance -722 ml -750 ml 804 ml Intake Oral 240 ml IV Total 638 ml 804 ml Output Urine Total 1600 ml 750 ml # Bowel Movements 0 1 Vital Signs Vital Signs Date Time Temp Pulse Resp B/P Pulse Ox O2 Delivery O2 Flow Rate FiO2 01/27/17 10:26 65 01/27/17 08:23 Room Air 01/27/17 08:06 98.0 62 17 137/64 95 01/27/17 04:00 97.5 58 16 136/75 95 01/27/17 00:00 Room Air 01/27/17 00:00 98.7 59 16 119/58 97 01/26/17 21:00 Room Air 01/26/17 20:00 79 01/26/17 20:00 97.8 72 18 126/64 95 01/26/17 16:00 97.8 69 20 138/77 97 01/26/17 16:00 Room Air CBC/BMP: 01/26/17 0622 01/26/17 0622 Physical Exam General General Appearance: Well Developed, Comfortable, Obese Eyes Eye Exam: Pupils Equal, Pupils Reactive, Extraocular Movement Intact Ears & Nose Ears & Nose Exam: Nasal Mucosa [place] Throat Throat Exam: Oral Mucosa [place] & Moist Neck Neck Exam: Neck Supple, Trachea Midline Pulmonary Resp Exam: Breath Sounds Equal Cardiology CV Exam: Regular, Normal Sinus Rhythm Gastrointestinal/Abdomen GI Exam: Soft, Non-Tender, Bowel Sounds Present, Non-Distended Musculoskeletal MS Exam: Normal Gait, Normal Tone Integumentary Skin Exam: Warm, Dry Extremeties Extremities Exam: No Edema, Pedal Pulses Palpable Neurologic Neuro Exam: Alert, Awake, Oriented, Speech Clear, Moving All Extremities, Social Media Director Equal, No Focal Deficits Psychiatric Psych Exam: Appropriate Responses VTE Prophylaxis VTE Prophylaxis Meds: Heparin Assessment/Plan Assessment/Plan Assessment Bacteremia with Staphylococcus LUGDIUNENSIS, sensitivity noted High-grade fever prior to admission, none since Leukocytosis, resolved Left pleuritic chest pain, resolved Swelling at the ICD site with a sensation that the device has moved laterally, improving Hypokalemia Management Appreciate consultants input, cardiology, ID, cardiothoracic Patient on oxacillin now BC + Staphylococcus LUGDIUNENSIS, sensitivity noted appreciate Dr. Amin's input, going for AICD explantation on Wednesday Echo done, EF 30-35% Positive rheumatoid factor, significance unknown We'll need to follow up with rheumatology as outpatient Continue with home care DVT prophylaxis with low-dose heparin Stable, going to OR Wednesday Discussed with patient Discussed with RN Discussed with Dr. Wang This patient was seen by myself and Dr. Wang, this note is written on his behalf Savi Fontenot Jan 27, 2017 13:06
--- NOTE | 2017-01-27 13:19 | HHI.IDPN ---
Subjective Subjective Remarks Patient is a 61-year-old female, was been having intermittent fevers in the last 3 weeks. The fever would occur at any time of the day. Over the last week the fevers have been more persistent. She would occasionally have rigors. She denies any night sweats. She's also had some sore throat, but denies any swallowing difficulty. There's been no cough or any shortness of breath. Son has some left-sided headache which is more all an achy type pain. She's had some nausea but no shree vomiting. She's also started having pain on the left side of her chest under her breasts. She has not had any urinary complaint. She has some mild achiness in her left arm. No significant back pain. No skin rash, no joint swelling noted. Her last travel was within the last year and he was in [place]. She has dogs and cats in her home but they've been with her for a while. No exposure to any other animals. No exposure to any sick child. She saw her primary care physician, and was supposed to get some blood work done. She's had about 6 pound weight loss in the last 3 weeks. Her appetite has been poor. She's had mammogram that was normal. Her last colonoscopy was about a year ago and that was okay. She has not had any Pap smear, since according to her she's had a hysterectomy done. Since admission she's had a fever of 103.1. Urinalysis has some hematuria. WBC is mildly elevated. Her LFTs are unremarkable. Chest x-rays normal.ID Notes reviewed Temps normal BC with Staph lugdunensis - last (+) BC 01/23 BC 01/25 negative CTS notes reviewed OR plans for Wednesday Clinically doing well ESR 52 CRP 10 Antibiotics Oxacillin Lines PIV Past Medical History Chronic systolic heart failure Ejection fraction 35% Recurrent urinary infection Hypertension Possible Hyperlipidemia Small bowel obstruction Torn ligaments of the right knee Right lower extremity DVT, completed 3 months of oral anticoagulation Past Surgical History Defibrillator insertion Hysterectomy complicated with bowel perforation partial colectomy Allergies: Coded Allergies: No Known Allergies (Unverified , 11/29/15) Objective . Vital Signs Date Time Temp Pulse Resp B/P Pulse Ox O2 Delivery O2 Flow Rate FiO2 01/27/17 10:26 65 01/27/17 08:23 Room Air 01/27/17 08:06 98.0 62 17 137/64 95 01/27/17 04:00 97.5 58 16 136/75 95 01/27/17 00:00 Room Air 01/27/17 00:00 98.7 59 16 119/58 97 01/26/17 21:00 Room Air 01/26/17 20:00 79 01/26/17 20:00 97.8 72 18 126/64 95 01/26/17 16:00 97.8 69 20 138/77 97 01/26/17 16:00 Room Air 01/26/17 01/26/17 01/27/17 15:00 23:00 07:00 Intake Total 878 ml 804 ml Output Total 1600 ml 750 ml Balance -722 ml -750 ml 804 ml Intake Oral 240 ml IV Total 638 ml 804 ml Output Urine Total 1600 ml 750 ml # Bowel Movements 0 1 . Laboratory Tests Test 01/26/17 06:22 White Blood Count 3.6 TH/MM3 Red Blood Count 3.65 MIL/MM3 Hemoglobin 10.4 GM/DL Hematocrit 30.8 % Mean Corpuscular Volume 84.4 FL Mean Corpuscular Hemoglobin 28.4 PG Mean Corpuscular Hemoglobin 33.7 % Concent Red Cell Distribution Width 14.9 % Platelet Count 152 TH/MM3 Mean Platelet Volume 7.7 FL Laboratory Tests Test 01/26/17 06:22 Sodium Level 143 MEQ/L Potassium Level 3.8 MEQ/L Chloride Level 110 MEQ/L Carbon Dioxide Level 23.8 MEQ/L Anion Gap 9 MEQ/L Blood Urea Nitrogen 6 MG/DL Creatinine 0.58 MG/DL Estimat Glomerular Filtration 105 ML/MIN Rate Random Glucose 85 MG/DL Calcium Level 8.5 MG/DL Microbiology Date/Time Procedure Status Source Growth 01/25/17 17:12 Aerobic Blood Culture - Preliminary Resulted Blood Peripheral NO GROWTH IN 2 DAYS 01/25/17 17:12 Anaerobic Blood Culture - Final Resulted Blood Peripheral QNS - SEE AEROBE REPORT 01/26/17 06:22 Aerobic Blood Culture - Preliminary Resulted Blood Peripheral NO GROWTH IN 1 DAY 01/26/17 06:22 Anaerobic Blood Culture - Preliminary Resulted Blood Peripheral NO GROWTH IN 1 DAY Imaging Last Impressions Chest X-Ray 01/22/17 0951 Signed Impressions: Service Date/Time: Sunday, January 22, 2017 09:51 - CONCLUSION: 1. No acute cardiopulmonary findings. Jared Weinstein MD CT Angiography 01/22/17 0000 Signed Impressions: Service Date/Time: Wednesday, January 22, 2017 19:01 - CONCLUSION: No pulmonary embolus or other acute cardiopulmonary disease demonstrated. Homar Ashraf MD Physical Exam GENERAL: awake and alert, not in respiratory distress. OOB in a chair SKIN: Warm and dry. No generalized rash, no ecchymoses and no evidence of embolic lesions. EYES: [place] conjunctiva. No petechia or hemorrhage. Pupils equal, round and reactive to light. Extraocular movements full and intact. No scleral icterus. No injection or drainage. EARS, NOSE AND THROAT: Mucous membranes pink and moist. No oral lesions noted. No oral thrush. CARDIOVASCULAR: Regular rate and rhythm. Has murmur at the base on heart, no rubs AICD in place L chest, no skin changes around it, but pt thinks it migrates RESPIRATORY: Clear to auscultation. Breath sounds equal bilaterally. No rales , wheezing or rhonchi. ABDOMEN: Soft, non-tender, nondistended. Bowel sounds present and normoactive. No guarding. No rebound. No organomegaly. EXTREMITIES: No clubbing, cyanosis, or edema. No joint effusion, has good ROM. No calf tenderness. Well perfused and warm. NEUROLOGICAL: Non-focal PSYCHIATRIC: Normal affect, calm and cooperative. 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
[2017-01-27] MEDS: ACETAMINOPHEN 325 MG TAB PO PRN (17:17)
--- NOTE | 2017-01-27 19:56 | HHI.PR ---
Subjective Remarks Feeling ok Objective Vital Signs Date Time Temp Pulse Resp B/P Pulse Ox O2 Delivery O2 Flow Rate FiO2 01/27/17 14:06 98.6 71 18 129/60 96 01/27/17 12:05 99.0 70 17 122/61 93 01/27/17 10:26 65 01/27/17 08:23 Room Air 01/27/17 08:06 98.0 62 17 137/64 95 01/27/17 04:00 97.5 58 16 136/75 95 01/27/17 00:00 Room Air 01/27/17 00:00 98.7 59 16 119/58 97 01/26/17 21:00 Room Air 01/26/17 20:00 79 01/26/17 20:00 97.8 72 18 126/64 95 I/O 01/26/17 01/26/17 01/26/17 01/27/17 01/27/17 01/27/17 07:00 15:00 23:00 07:00 15:00 23:00 Intake Total 796 ml 878 ml 804 ml 1031 ml Output Total 1600 ml 750 ml Balance 796 ml -722 ml -750 ml 804 ml 1031 ml Intake Oral 480 ml 240 ml 380 ml IV Total 316 ml 638 ml 804 ml 651 ml Output Urine Total 1600 ml 750 ml # Voids 3 # Bowel Movements 0 1 0 Result Diagram: 01/26/1762101/26/17621 Imaging Alert, fully oriented Lungs: ventilated Heart: S1, S2 regular, no redness at device pocket Abdomen: soft, no mass Ext: no edema Current Medications Medications (Trade) Dose Ordered Sig/[place] Route Start Time Stop Time Status Last Admin (NS 1000 ml Inj) 1,000 ml @ 20 mls/hr Q24H IV 01/22/17 12:26 01/26/17 21:01 (NS Flush) 2 ml UNSCH PRN IV FLUSH 01/22/17 12:30 (NS Flush) 2 ml BID IV FLUSH 01/22/17 21:00 01/25/17 08:28 (Zofran Inj) 4 mg Q6H PRN IVP 01/22/17 12:30 01/25/17 11:15 (Heparin Inj) 5,000 units Q12H SQ 01/22/17 13:00 01/27/17 12:18 (Narcan Inj) 0.4 mg UNSCH PRN IV 01/22/17 12:30 (Iveth-Colace) 1 tab BID PO 01/22/17 21:00 01/24/17 08:46 (Milk Of Magnesia Liq) 30 ml Q12H PRN PO 01/22/17 12:30 (Senokot) 17.2 mg Q12H PRN PO 01/22/17 12:30 (Dulcolax Supp) 10 mg DAILY PRN RECTAL 01/22/17 12:30 (Lactulose Liq) 30 ml DAILY PRN PO 01/22/17 12:30 (Aspirin Chew) 81 mg DAILY CHEW 01/23/17 09:00 01/27/17 09:38 (Coreg) 25 mg BID PO 01/22/17 21:00 01/27/17 09:38 (Tylenol) 650 mg Q4H PRN PO 01/22/17 19:00 01/27/17 17:17 Acetaminophen/ Hydrocodone Bitart 1 tab 1 tab Q4H PRN PO 01/22/17 19:00 01/24/17 06:00 (Prostaphlin Inj/ NS Inj) 100 ml @ 200 mls/hr Q4H IV 01/24/17 20:00 01/27/17 16:54 (Prinivil) 10 mg DAILY PO 01/26/17 09:00 01/27/17 09:38 (NS Flush) 2 ml BID IV FLUSH 01/26/17 21:00 (NS Flush) 2 ml UNSCH PRN IV FLUSH 01/26/17 17:45 Assessment and Plan Problem List: (1) Sepsis Status: Acute Plan: On IV antibiotic Doing better CV surgery consulted Possible lead extraction Wednesday Lyndsey Jansen MD Jan 27, 2017 19:56
[2017-01-27] MEDS: SODIUM CHLOR 0.9% 1000 ML INJ 1,000 ML IV SCH (21:49)
[2017-01-28] VITALS: BP 124/57; PULSE 56; RESP 20; TEMP 97.9; O2SAT 96
[2017-01-28] MEDS: HEPARIN SODIUM - SQ 10,000 UNITS/ML VIAL SQ SCH ×3 (00:28→20:30)
[2017-01-28] MEDS: OXACILLIN INJ 2 GM in SODIUM CHLORIDE 0.9% INJ 100 ML IV SCH ×7 (00:29→23:07)
[2017-01-28 04:00] VITALS: BP 116/73; PULSE 61; RESP 20; TEMP 98.4; O2SAT 95
[2017-01-28 08:00] VITALS: BP 122/62; PULSE 72; PULSE 75; RESP 20; TEMP 97.6; O2SAT 95
[2017-01-28] MEDS: ASPIRIN 81 MG CHEW TAB CHEW SCH (08:01)
[2017-01-28] MEDS: SODIUM CHLORIDE 0.9% FLUSH 10 ML FLUSH IV FLUSH SCH ×4 (08:01→20:27)
[2017-01-28] MEDS: DOCUSATE SODIUM 50 MG/SENNA 8.6 MG TAB PO SCH ×2 (08:02→20:29)
[2017-01-28] MEDS: LISINOPRIL 10 MG TAB PO SCH (08:04)
[2017-01-28] MEDS: CARVEDILOL 12.5 MG TAB PO SCH ×2 (08:04→20:29)
--- NOTE | 2017-01-28 10:01 | HHI.PR ---
Subjective Subjective Remarks Up in chair Patient awake, anxious over increased hospital stay, supportive care Afebrile No chest pain Review of Systems Constitutional Constitutional: Fatigue (mild) Constitutional Remarks 10 point ROS done positives noted Pulmonary Respiratory: Coughing (occasional) Psychiatric Psychiatric: Normal Mood, Anxiety Vitals/Results Intake & Output 01/27/17 01/27/17 01/28/17 15:00 23:00 07:00 Intake Total 1031 ml 360 ml 693 ml Output Total 280 ml Balance 1031 ml 360 ml 413 ml Intake Oral 380 ml 360 ml 220 ml IV Total 651 ml 473 ml Output Urine Total 280 ml # Voids 3 4 # Bowel Movements 0 1 0 Vital Signs Vital Signs Date Time Temp Pulse Resp B/P Pulse Ox O2 Delivery O2 Flow Rate FiO2 01/28/17 08:00 Room Air 01/28/17 08:00 75 01/28/17 08:00 97.6 72 20 122/62 95 01/28/17 04:00 98.4 61 20 116/73 95 01/28/17 04:00 Room Air 01/28/17 00:00 Room Air 01/28/17 00:00 97.9 56 20 124/57 96 01/27/17 20:23 62 01/27/17 20:15 Room Air 01/27/17 20:05 97.9 59 16 141/62 96 01/27/17 14:06 98.6 71 18 129/60 96 01/27/17 12:05 99.0 70 17 122/61 93 01/27/17 10:26 65 CBC/BMP: 01/26/17 0622 01/26/17 0622 Lab Results Laboratory Tests Test 01/28/17 05:14 Blood Type A POSITIVE Antibody Screen NEGATIVE Blood Bank Comment Imaging Remarks Last Impressions Chest X-Ray 01/22/17 0951 Signed Impressions: Service Date/Time: Sunday, January 22, 2017 09:51 - CONCLUSION: 1. No acute cardiopulmonary findings. Jared Weinstein MD CT Angiography 01/22/17 0000 Signed Impressions: Service Date/Time: Sunday, January 22, 2017 19:01 - CONCLUSION: No pulmonary embolus or other acute cardiopulmonary disease demonstrated. Homar Ashraf MD Current Medications Administered Medications Medications (Trade) Dose Ordered Sig/[place] Route PRN Reason Start Time Stop Time Status Last Admin Dose Admin Sodium Chloride (NS 1000 ml Inj) 1,000 ml @ 20 mls/hr Q24H IV 01/22/17 12:26 01/27/17 21:49 Sodium Chloride (NS Flush) 2 ml BID IV FLUSH 01/22/17 21:00 01/25/17 08:28 Ondansetron HCl (Zofran Inj) 4 mg Q6H PRN IVP NAUSEA OR VOMITING 01/22/17 12:30 01/25/17 11:15 Heparin Sodium (Porcine) (Heparin Inj) 5,000 units Q12H SQ 01/22/17 13:00 01/28/17 00:28 Senna/Docusate Sodium (Iveth-Colace) 1 tab BID PO 01/22/17 21:00 01/24/17 08:46 Aspirin (Aspirin Chew) 81 mg DAILY CHEW 01/23/17 09:00 01/27/17 09:38 Carvedilol (Coreg) 25 mg BID PO 01/22/17 21:00 01/28/17 08:04 Acetaminophen (Tylenol) 650 mg Q4H PRN PO pain 1-4 or fever 01/22/17 19:00 01/27/17 17:17 Acetaminophen/ Hydrocodone Bitart 1 tab 1 tab Q4H PRN PO pain 5-10 01/22/17 19:00 01/24/17 06:00 Oxacillin Sodium/ Sodium Chloride (Prostaphlin Inj/ NS Inj) 100 ml @ 200 mls/hr Q4H IV 01/24/17 20:00 01/28/17 07:59 Lisinopril (Prinivil) 10 mg DAILY PO 01/26/17 09:00 01/28/17 08:04 Physical Exam General General Appearance: Well Developed, Comfortable, Anxious (mild over hospital stay), Obese Eyes Eye Exam: Pupils Equal, Pupils Reactive, Extraocular Movement Intact Ears & Nose Ears & Nose Exam: Nasal Mucosa [place] Throat Throat Exam: Oral Mucosa [place] & Moist Neck Neck Exam: Neck Supple, Trachea Midline Pulmonary Resp Exam: Breath Sounds Equal, Rhonchi (occasional, history of seasonal allergies, encouraged to turn cough and deep breathe) Cardiology CV Exam: Regular, Normal Sinus Rhythm Gastrointestinal/Abdomen GI Exam: Soft, Non-Tender, Bowel Sounds Present, Non-Distended Musculoskeletal MS Exam: Normal Gait, Normal Tone Integumentary Skin Exam: Warm, Dry Extremeties Extremities Exam: No Edema, Pedal Pulses Palpable Neurologic Neuro Exam: Alert, Awake, Oriented, Speech Clear, Moving All Extremities, Medical Office Clerk Equal, No Focal Deficits Psychiatric Psych Exam: Appropriate Responses VTE Prophylaxis VTE Prophylaxis Meds: Heparin Assessment/Plan Assessment/Plan Assessment Vital signs reviewed, afebrile BP normal Labs reviewed anemia controlled 10.4, noted positive blood cultures with treatment regimen in place Chest x-ray normal range Bacteremia with Staphylococcus LUGDIUNENSIS, sensitivity noted High-grade fever prior to admission, none since Leukocytosis, resolved Left pleuritic chest pain, resolved Swelling at the ICD site with a sensation that the device has moved laterally, improving monitor Hypokalemia Anxiety mild Plan Appreciate consultants input, cardiology, ID, cardiothoracic Treatment regimen oxacillin BC + Staphylococcus LUGDIUNENSIS, sensitivity noted appreciate Dr. Amin's input, going for AICD explantation on Wednesday Heart rate sinus rhythm in the 80s to 90s with bundle branch block on telemetry EF 30-35% per echo Positive rheumatoid factor, significance unknown We'll need to follow up with rheumatology as outpatient Anemia probable secondary to chronic disease but stable, monitoring per her labs DVT prophylaxis with low-dose heparin Bowel regimen, monitored normal now, patient states previous diarrhea with pain , but now resolved Stable, going to OR Wednesday for removal of AICD, plan is to replace 3 days later on Wednesday morning. Activity up out of bed in chair and ambulating, encouraged patient to continue her mobility Discussed with patient , supportive care, and encouraged during this hospital course of treatment and stay Discussed with Dr. Wang, seen on his behalf Bree Messina Jan 28, 2017 10:01
[2017-01-28 12:00] VITALS: BP 119/60; PULSE 60; RESP 20; TEMP 98; O2SAT 96
--- NOTE | 2017-01-28 12:44 | HHI.IDPN ---
Subjective Subjective Remarks Patient is a 61-year-old female, was been having intermittent fevers in the last 3 weeks. The fever would occur at any time of the day. Over the last week the fevers have been more persistent. She would occasionally have rigors. She denies any night sweats. She's also had some sore throat, but denies any swallowing difficulty. There's been no cough or any shortness of breath. Son has some left-sided headache which is more all an achy type pain. She's had some nausea but no shree vomiting. She's also started having pain on the left side of her chest under her breasts. She has not had any urinary complaint. She has some mild achiness in her left arm. No significant back pain. No skin rash, no joint swelling noted. Her last travel was within the last year and he was in [place]. She has dogs and cats in her home but they've been with her for a while. No exposure to any other animals. No exposure to any sick child. She saw her primary care physician, and was supposed to get some blood work done. She's had about 6 pound weight loss in the last 3 weeks. Her appetite has been poor. She's had mammogram that was normal. Her last colonoscopy was about a year ago and that was okay. She has not had any Pap smear, since according to her she's had a hysterectomy done. Since admission she's had a fever of 103.1. Urinalysis has some hematuria. WBC is mildly elevated. Her LFTs are unremarkable. Chest x-rays normal.ID Notes reviewed Temps normal Had some diarrhea, but has improved BC with Staph lugdunensis - last (+) BC 01/23 BC 01/25 negative CTS notes reviewed OR plans for Wednesday Clinically doing well OR for tomorrow ESR 52 CRP 10 Antibiotics Oxacillin Lines PIV Past Medical History Chronic systolic heart failure Ejection fraction 35% Recurrent urinary infection Hypertension Possible Hyperlipidemia Small bowel obstruction Torn ligaments of the right knee Right lower extremity DVT, completed 3 months of oral anticoagulation Past Surgical History Defibrillator insertion Hysterectomy complicated with bowel perforation partial colectomy Allergies: Coded Allergies: No Known Allergies (Unverified , 11/29/15) Objective . Vital Signs Date Time Temp Pulse Resp B/P Pulse Ox O2 Delivery O2 Flow Rate FiO2 01/28/17 08:00 Room Air 01/28/17 08:00 75 01/28/17 08:00 97.6 72 20 122/62 95 01/28/17 04:00 98.4 61 20 116/73 95 01/28/17 04:00 Room Air 01/28/17 00:00 Room Air 01/28/17 00:00 97.9 56 20 124/57 96 01/27/17 20:23 62 01/27/17 20:15 Room Air 01/27/17 20:05 97.9 59 16 141/62 96 01/27/17 14:06 98.6 71 18 129/60 96 01/27/17 01/27/17 01/28/17 15:00 23:00 07:00 Intake Total 1031 ml 360 ml 693 ml Output Total 280 ml Balance 1031 ml 360 ml 413 ml Intake Oral 380 ml 360 ml 220 ml IV Total 651 ml 473 ml Output Urine Total 280 ml # Voids 3 4 # Bowel Movements 0 1 0 . Microbiology Date/Time Procedure Status Source Growth 01/25/17 17:12 Aerobic Blood Culture - Preliminary Resulted Blood Peripheral NO GROWTH IN 3 DAYS 01/25/17 17:12 Anaerobic Blood Culture - Final Resulted Blood Peripheral QNS - SEE AEROBE REPORT 01/26/17 06:22 Aerobic Blood Culture - Preliminary Resulted Blood Peripheral NO GROWTH IN 2 DAYS 01/26/17 06:22 Anaerobic Blood Culture - Preliminary Resulted Blood Peripheral NO GROWTH IN 2 DAYS Imaging Last Impressions Chest X-Ray 01/22/17 0951 Signed Impressions: Service Date/Time: Sunday, January 22, 2017 09:51 - CONCLUSION: 1. No acute cardiopulmonary findings. Jared Weinstein MD CT Angiography 01/22/17 0000 Signed Impressions: Service Date/Time: Sunday, January 22, 2017 19:01 - CONCLUSION: No pulmonary embolus or other acute cardiopulmonary disease demonstrated. Homar Ashraf MD Physical Exam GENERAL: awake and alert, not in respiratory distress. OOB in a chair SKIN: Warm and dry. No generalized rash, no ecchymoses and no evidence of embolic lesions. EYES: [place] conjunctiva. No petechia or hemorrhage. No scleral icterus. No injection or drainage. EARS, NOSE AND THROAT: Mucous membranes pink and moist. No oral lesions noted. No oral thrush. CARDIOVASCULAR: Regular rate and rhythm. Has murmur at the base on heart, no rubs AICD in place L chest, no skin changes around it, looks puffier, not tender. RESPIRATORY: Clear to auscultation. Breath sounds equal bilaterally. No rales , wheezing or rhonchi. ABDOMEN: Soft, non-tender, nondistended. Bowel sounds present and normoactive. No guarding. No rebound. No organomegaly. EXTREMITIES: No clubbing, cyanosis, or edema. No joint effusion, has good ROM. No calf tenderness. Well perfused and warm. NEUROLOGICAL: Non-focal PSYCHIATRIC: Normal affect, calm and cooperative. 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
[2017-01-28] MEDS: LACTOBACILLUS ACIDOPHILUS TAB PO SCH ×2 (15:16→17:49)
[2017-01-28 16:00] VITALS: BP 123/63; PULSE 69; RESP 20; TEMP 97.9; O2SAT 96
[2017-01-28 20:00] VITALS: BP 126/64; PULSE 68; PULSE 72; RESP 18; TEMP 97.9; O2SAT 98
[2017-01-28] MEDS: SODIUM CHLOR 0.9% 1000 ML INJ 1,000 ML IV SCH (20:30)
[2017-01-29] VITALS (8 sets, daily range): BP systolic 116–175; BP diastolic 56–71; PULSE 54–67; RESP 16–20; TEMP 97.7–98.2; O2SAT 95–99
[2017-01-29] MEDS: OXACILLIN INJ 2 GM in SODIUM CHLORIDE 0.9% INJ 100 ML IV SCH ×4 (03:07→21:29)
--- NOTE | 2017-01-29 07:22 | PD.CARD.PN ---
Subjective Subjective Remarks Feels okay, currently nothing by mouth pending lead and device extraction Objective Medications Current Medications Medications (Trade) Dose Ordered Sig/Aguila Route Start Time Stop Time Status Last Admin (NS 1000 ml Inj) 1,000 ml @ 20 mls/hr Q24H IV 01/22/17 12:26 01/28/17 20:30 (NS Flush) 2 ml UNSCH PRN IV FLUSH 01/22/17 12:30 (NS Flush) 2 ml BID IV FLUSH 01/22/17 21:00 01/28/17 20:27 (Zofran Inj) 4 mg Q6H PRN IVP 01/22/17 12:30 01/25/17 11:15 (Heparin Inj) 5,000 units Q12H SQ 01/22/17 13:00 01/28/17 00:28 (Narcan Inj) 0.4 mg UNSCH PRN IV 01/22/17 12:30 (Iveth-Colace) 1 tab BID PO 01/22/17 21:00 01/28/17 20:29 (Milk Of Magndoc Liq) 30 ml Q12H PRN PO 01/22/17 12:30 (Senokot) 17.2 mg Q12H PRN PO 01/22/17 12:30 (Dulcolax Supp) 10 mg DAILY PRN RECTAL 01/22/17 12:30 (Aspirin Chew) 81 mg DAILY CHEW 01/23/17 09:00 01/27/17 09:38 (Coreg) 25 mg BID PO 01/22/17 21:00 01/28/17 20:29 (Tylenol) 650 mg Q4H PRN PO 01/22/17 19:00 01/27/17 17:17 Acetaminophen/ Hydrocodone Bitart 1 tab 1 tab Q4H PRN PO 01/22/17 19:00 01/24/17 06:00 (Prostaphlin Inj/ NS Inj) 100 ml @ 200 mls/hr Q4H IV 01/24/17 20:00 01/29/17 03:07 (Prinivil) 10 mg DAILY PO 01/26/17 09:00 01/28/17 08:04 (NS Flush) 2 ml BID IV FLUSH 01/26/17 21:00 (NS Flush) 2 ml UNSCH PRN IV FLUSH 01/26/17 17:45 (Lactinex) 1 tab TID PO 01/28/17 13:00 01/28/17 17:49 Vital Signs / I&O Vital Signs Date Time Temp Pulse Resp B/P Pulse Ox O2 Delivery O2 Flow Rate FiO2 01/29/17 04:00 97.9 54 16 128/60 95 01/29/17 00:00 97.8 60 18 118/56 95 01/28/17 20:00 97.9 68 18 126/64 98 01/28/17 20:00 72 01/28/17 20:00 Room Air 01/28/17 16:00 97.9 69 20 123/63 96 01/28/17 12:00 98.0 60 20 119/60 96 01/28/17 08:00 Room Air 01/28/17 08:00 75 01/28/17 08:00 97.6 72 20 122/62 95 I/O 01/28/17 01/28/17 01/28/17 01/29/17 01/29/17 01/29/17 07:00 15:00 23:00 07:00 15:00 23:00 Intake Total 693 ml 880 ml 240 ml 240 ml Output Total 280 ml Balance 413 ml 880 ml 240 ml 240 ml Intake Oral 220 ml 480 ml 240 ml 240 ml IV Total 473 ml 400 ml Output Urine Total 280 ml # Voids 4 2 3 # Bowel Movements 0 2 0 1 Physical Exam GENERAL: Well-nourished, well-developed patient. SKIN: Warm and dry. Left chest wall with evident device with erosion. Mild erythema. HEAD: Normocephalic. EYES: No scleral icterus. No injection or drainage. NECK: Supple, trachea midline. No JVD or lymphadenopathy. CARDIOVASCULAR: Regular rate and rhythm without murmurs, gallops, or rubs. RESPIRATORY: Breath sounds equal bilaterally. No accessory muscle use. GASTROINTESTINAL: Abdomen soft, non-tender, nondistended. EXTREMITIES: No cyanosis, or edema. NEUROLOGICAL: Awake, alert, and oriented x 3. Non-focal. Laboratory Microbiology Date/Time Procedure Status Source Growth 01/26/17 06:22 Aerobic Blood Culture - Preliminary Resulted Blood Peripheral NO GROWTH IN 2 DAYS 01/26/17 06:22 Anaerobic Blood Culture - Preliminary Resulted Blood Peripheral NO GROWTH IN 2 DAYS Imaging Last Impressions Chest X-Ray 01/22/17 0951 Signed Impressions: Service Date/Time: Sunday, January 22, 2017 09:51 - CONCLUSION: 1. No acute cardiopulmonary findings. Jared Weinstein MD CT Angiography 01/22/17 0000 Signed Impressions: Service Date/Time: Sunday, January 22, 2017 19:01 - CONCLUSION: No pulmonary embolus or other acute cardiopulmonary disease demonstrated. Homar Ashraf MD Assessment and Plan Problem List: (1) Sepsis Assessment and Plan: Blood cultures positive for staph lugdenensis. ID following. Plan to extract ICD and lead today by Dr. Daily, then will require 6 weeks of antibiotics prior to reimplantation. Further management pending clinical course and Dr. Griffiths continued evaluation. Assessment and plan discussed with him, patient and RN. Vannessa Tello Jan 29, 2017 07:22
[2017-01-29] MEDS ORDERED: PHENYLEPH/NS 1000 MCG/10 ML SYR IV ONE (08:25)
[2017-01-29] MEDS ORDERED: ONDANSETRON HCL 4 MG/2 ML VIAL IV PUSH ONE (08:25)
[2017-01-29] MEDS ORDERED: NORMOSOL R INJ 2,000 ML IV ONE (08:25)
[2017-01-29] MEDS ORDERED: PROPOFOL 200 MG/20 ML AMP IV ONE (08:25)
[2017-01-29] MEDS ORDERED: ePHEDrine/NS 25 MG/5 ML SYR IV ONE (08:25)
[2017-01-29] MEDS: DOCUSATE SODIUM 50 MG/SENNA 8.6 MG TAB PO SCH ×2 (08:34→21:00)
[2017-01-29] MEDS: LISINOPRIL 10 MG TAB PO SCH (08:34)
[2017-01-29] MEDS: LACTOBACILLUS ACIDOPHILUS TAB PO SCH ×2 (08:34→12:17)
[2017-01-29] MEDS: CARVEDILOL 12.5 MG TAB PO SCH ×2 (08:34→21:16)
[2017-01-29] MEDS: ASPIRIN 81 MG CHEW TAB CHEW SCH (08:35)
[2017-01-29] MEDS: SODIUM CHLORIDE 0.9% FLUSH 10 ML FLUSH IV FLUSH SCH ×3 (08:35→21:16)
--- NOTE | 2017-01-29 12:08 | HHI.PR ---
Subjective Subjective Remarks Up in chair Nothing by mouth for surgical procedure today removal of AICD Afebrile Rash without uricaria under left breast (Bree Messina) Review of Systems Constitutional Constitutional: Fatigue (mild) Constitutional Remarks 10 point ROS done positives noted (Bree Messina) Pulmonary Respiratory: Coughing (occasional) (Bree Messina) Chest/Breast Chest/Breast Remarks Rash under left breast without itching (Bree Messina) Psychiatric Psychiatric: Normal Mood, Anxiety (Bree Messina) Vitals/Results Intake & Output 01/28/17 01/28/17 01/29/17 15:00 23:00 07:00 Intake Total 880 ml 240 ml 240 ml Balance 880 ml 240 ml 240 ml Intake Oral 480 ml 240 ml 240 ml IV Total 400 ml # Voids 4 2 3 # Bowel Movements 2 0 1 Vital Signs Vital Signs Date Time Temp Pulse Resp B/P Pulse Ox O2 Delivery O2 Flow Rate FiO2 01/29/17 08:00 98.1 63 20 141/71 95 01/29/17 04:00 97.9 54 16 128/60 95 01/29/17 00:00 97.8 60 18 118/56 95 01/28/17 20:00 97.9 68 18 126/64 98 01/28/17 20:00 72 01/28/17 20:00 Room Air 01/28/17 16:00 97.9 69 20 123/63 96 (Bree Messina) CBC/BMP: 01/26/17 0622 01/26/17 0622 Current Medications Administered Medications Medications (Trade) Dose Ordered Sig/Aguila Route PRN Reason Start Time Stop Time Status Last Admin Dose Admin Sodium Chloride (NS 1000 ml Inj) 1,000 ml @ 20 mls/hr Q24H IV 01/22/17 12:26 01/28/17 20:30 Sodium Chloride (NS Flush) 2 ml BID IV FLUSH 01/22/17 21:00 01/29/17 08:35 Ondansetron HCl (Zofran Inj) 4 mg Q6H PRN IVP NAUSEA OR VOMITING 01/22/17 12:30 01/25/17 11:15 Heparin Sodium (Porcine) (Heparin Inj) 5,000 units Q12H SQ 01/22/17 13:00 01/28/17 00:28 Senna/Docusate Sodium (Iveth-Colace) 1 tab BID PO 01/22/17 21:00 01/28/17 20:29 Aspirin (Aspirin Chew) 81 mg DAILY CHEW 01/23/17 09:00 01/27/17 09:38 Carvedilol (Coreg) 25 mg BID PO 01/22/17 21:00 01/29/17 08:34 Acetaminophen (Tylenol) 650 mg Q4H PRN PO pain 1-4 or fever 01/22/17 19:00 01/27/17 17:17 Acetaminophen/ Hydrocodone Bitart 1 tab 1 tab Q4H PRN PO pain 5-10 01/22/17 19:00 01/24/17 06:00 Oxacillin Sodium/ Sodium Chloride (Prostaphlin Inj/ NS Inj) 100 ml @ 200 mls/hr Q4H IV 01/24/17 20:00 01/29/17 08:35 Lisinopril (Prinivil) 10 mg DAILY PO 01/26/17 09:00 01/29/17 08:34 Sodium Chloride (NS Flush) 2 ml BID IV FLUSH 01/26/17 21:00 01/29/17 08:40 Lactobacillus Acidophilus (Lactinex) 1 tab TID PO 01/28/17 13:00 01/29/17 08:34 (Bree Messina) Physical Exam General General Appearance: Well Developed, Comfortable, Anxious (mild over hospital stay), Obese (Bree Messina) Eyes Eye Exam: Pupils Equal, Pupils Reactive, Extraocular Movement Intact (Bree Messina) Ears & Nose Ears & Nose Exam: Nasal Mucosa [place] (Bree Messina) Throat Throat Exam: Oral Mucosa [place] & Moist (Bree Messina) Neck Neck Exam: Neck Supple, Trachea Midline (Bree Messina) Pulmonary Resp Exam: Breath Sounds Equal, Rhonchi (occasional, history of seasonal allergies, encouraged to turn cough and deep breathe) (Bree Messina) Cardiology CV Exam: Regular, Normal Sinus Rhythm (Bree Messina. [employer]) Gastrointestinal/Abdomen GI Exam: Soft, Non-Tender, Bowel Sounds Present, Non-Distended (Bree Messina. [employer]) Musculoskeletal MS Exam: Normal Gait, Normal Tone (Bree Messina. [employer]) Integumentary Skin Exam: Warm, Dry (Bree Messina. [employer]) Extremeties Extremities Exam: No Edema, Pedal Pulses Palpable (Bree Messina. [employer]) Neurologic Neuro Exam: Alert, Awake, Oriented, Speech Clear, Moving All Extremities, [place] Equal, No Focal Deficits (Bree Messina. [employer]) Psychiatric Psych Exam: Appropriate Responses (Bree Messina. [employer]) VTE Prophylaxis VTE Prophylaxis Meds: Heparin (Bree Messina. [employer]) Assessment/Plan Assessment/Plan Assessment Vital signs reviewed, afebrile BP normal, trends normal for patient Labs reviewed anemia but no active bleeding noted, noted positive blood cultures with treatment regimen in place Chest x-ray normal range Bacteremia with Staphylococcus LUGDIUNENSIS, sensitivity noted High-grade fever prior to admission, none since Leukocytosis, resolved Left pleuritic chest pain, resolved Swelling at the ICD site with a sensation that the device has moved laterally, improving monitor Hypokalemia, resolved Anxiety mild Plan Appreciate consultants input, cardiology, ID, cardiothoracic Treatment regimen oxacillin BC + Staphylococcus LUGDIUNENSIS, sensitivity noted appreciate Dr. Amin's input, going for AICD explantation on Wednesday Heart rate sinus rhythm in the 80s to 90s with bundle branch block on telemetry EF 30-35% per echo Plan nothing by mouth today for surgical procedure to remove AICD Positive rheumatoid factor, significance unknown We'll need to follow up with rheumatology as outpatient Anemia probable secondary to chronic disease but stable, monitoring per her labs DVT prophylaxis with low-dose heparin Bowel regimen, monitored normal now, patient states previous diarrhea with pain , but now resolved Rash, macular without drainage, no urticaria, patient has large breast and has not been able to wear her bra with telemetry on, encouraged to clean pad dry and maintain air circulation, calamine lotion ordered to try and use twice a day and as needed. Activity up out of bed in chair and ambulating, encouraged patient to continue her mobility, asymptomatic for any chest pain or shortness of breath Discussed with patient , supportive care, patient's talkative today, time spent [address] Wang, seen on his behalf (Bree Messina) Assessment/Plan seen, examined by myself, Dr Wang, today Discussed with patient Going for her ICD and lead extraction later today Continue IV antibiotics She would like to be discharged maybe tomorrow This would be agreeable, provided arrangements are made from the infectious disease standpoint Discussed with mid level provider The exam, history, and the medical decision-making described in the above note were completed with the assistance of the mid-level provider. I reviewed the findings presented. I attest that I had a [id number] encounter with the patient on the same day, and personally performed and documented my assessment and findings in the medical record. (Herman Wang MD) Bree Messina Jan 29, 2017 12:08 Herman Wang MD Jan 29, 2017 18:57
[2017-01-29] MEDS ORDERED: CALAMINE/PRAMOXINE LOTION 180 ML BTL TOPICAL SCH (12:15)
[2017-01-29] MEDS: HEPARIN SODIUM - SQ 10,000 UNITS/ML VIAL SQ SCH (12:17)
[2017-01-29] MEDS ORDERED: fentaNYL CITRATE 250 MCG/5 ML AMP ONE (16:16)
[2017-01-29] MEDS ORDERED: MIDAZOLAM HCL 2 MG/2 ML VIAL ONE (16:16)
[2017-01-29] MEDS ORDERED: FAMOTIDINE 20 MG/2 ML VIAL ONE (16:23)
[2017-01-29] MEDS ORDERED: VANCOMYCIN HCL 1000 MG VIAL ONE (16:56)
[2017-01-29] MEDS ORDERED: HEPARIN SODIUM - SQ 10,000 UNITS/ML VIAL ONE (17:20)
[2017-01-29] MEDS ORDERED: LIDOCAINE HCL 1% 20 ML VIAL ONE (17:21)
[2017-01-29] MEDS ORDERED: ceFAZolin INJ 1,000 MG VIAL IV ONE (17:42)
[2017-01-29] MEDS ORDERED: ACETAMINOPHEN/CODEINE 300 MG/30 MG TAB PO PRN (19:00)
[2017-01-29] MEDS ORDERED: ALUMINUM/MAGNESIUM/SIMETH 30 ML CUP PO PRN (19:00)
[2017-01-29] MEDS ORDERED: MAGNESIUM HYDROXIDE SUSP 30 ML CUP PO PRN (19:00)
[2017-01-29] MEDS ORDERED: SODIUM CHLORIDE 0.9% FLUSH 10 ML FLUSH IV FLUSH PRN (19:00)
--- NOTE | 2017-01-29 19:01 | PD.OP ---
cc: Betty Daily MD; Lyndsey Jansen MD Operative Report Date of Surgery: Jan 29, 2017 Preoperative Diagnosis: (1) Sepsis (2) Aicd lead infection Postoperative Diagnosis: same Procedure: Removal of AICD generator and lead extraction with laser. Anesthesia: Dr. Dahl Surgeon: Btety Daily Luggage Repairer(s): Homar FARRAR Operation and Findings: The patient was taken to the hybrid operating room and identified as Aaliyah Taylor. She had consented for the procedure and underwent general anesthesia. After a time-out was performed, the pacemaker pocket was opened using sharp dissection and electrocautery. The pulse generator was removed and the pocket was cultured. There was no obvious sign of infection noted. The lead was removed from the device and freed from surrounding scar tissue using electrocautery. Fluoroscopy was used for the duration of the procedure to monitor progress of the lead removal. The lead was noted to be densely fixed and immobile even after unscrewing the electrode. Therefore, the end was cut and an EZ locking stylet was inserted and deployed. A traction rail was constructed to the lead and stylet. A 14F [employer] laser device was passed over the rail ant onto the lead to its entry point at the subclavian vein. The laser was deployed as needed to mobilize the lead down to the right ventricle. Ultimately, the lead came free and was removed in its entirety. Manual pressure was used to obtain hemostasis. The capsule was then excised in its entirety using electrocautery. A 10F Sami drain was placed in the pocket area and secured with a 3-0 nylon suture. The wound was copiously irrigated and closed in 3 layers. The sponge and instrument counts were correct and the patient transferred to the PACU in stable condition. Betty Daily MD Jan 29, 2017 19:01
[2017-01-29] MEDS ORDERED: DO NOT ADM ANY ANTICOAGULANT DRUGS PRN (19:25)
[2017-01-29] MEDS ORDERED: MORPHINE SULFATE 4 MG/ML INJ ONE (19:34)
[2017-01-29] MEDS: ONDANSETRON HCL 4 MG/2 ML VIAL IVP PRN (20:08)
--- NOTE | 2017-01-29 20:34 | RADRPT ---
EXAM DATE/TIME: 01/29/2017 19:58 [facility] COMPARISON: CHEST SINGLE AP, January 22, 2017, 9:51. INDICATIONS : Defibrillator removal MEDICAL HISTORY : Hypertension. SURGICAL HISTORY : None. ENCOUNTER: Initial ACUITY: 1 day PAIN SCORE: 0/10 LOCATION: Bilateral chest FINDINGS: Cardiomegaly and degenerative changes of the spine. The pacer/ICD device has been removed. No consoli dation or effusion. CONCLUSION: No acute disease. Hill Prieto MD on January 29, 2017 at 20:32 Board Certified Radiologist. This report was verified electronically.
[2017-01-29] MEDS: SODIUM CHLOR 0.9% 1000 ML INJ 1,000 ML IV SCH (21:25)
[2017-01-29] MEDS: ceFAZolin 2 GM PREMIX 50 ML IV SCH (23:42)
[2017-01-30] VITALS (8 sets, daily range): BP systolic 95–116; BP diastolic 51–58; PULSE 58–70; RESP 17–20; TEMP 97.8–98.3; O2SAT 93–98
[2017-01-30] MEDS: HEPARIN SODIUM - SQ 10,000 UNITS/ML VIAL SQ SCH ×2 (01:38→12:53)
[2017-01-30] MEDS: OXACILLIN INJ 2 GM in SODIUM CHLORIDE 0.9% INJ 100 ML IV SCH ×6 (01:39→21:49)
[2017-01-30] MEDS: ACETAMINOPHEN/CODEINE 300 MG/30 MG TAB PO PRN ×2 (01:44→08:49)
[2017-01-30 06:45] LABS: HEMATOCRIT 28.6 % (35.0-46.0); MEAN CELL VOLUME 83.5 FL (80.0-100.0); MEAN CORPUSCULAR HEMOGLOBIN 28.5 PG (27.0-34.0); MEAN CORPUSCULAR HGB CONC 34.1 % (32.0-36.0); PLATELET COUNT 154 TH/MM3 (150-450); RED BLOOD COUNT 3.42 MIL/MM3 (4.00-5.30); RED CELL DISTRIBUTION WIDTH 14.9 % (11.6-17.2); REVIEW FLAG FINAL; WHITE BLOOD COUNT 5.2 TH/MM3 (4.0-11.0)
[2017-01-30] MEDS: ceFAZolin 2 GM PREMIX 50 ML IV SCH ×2 (08:22→15:23)
[2017-01-30] MEDS: LACTOBACILLUS ACIDOPHILUS TAB PO SCH ×3 (08:22→17:26)
[2017-01-30] MEDS: ASPIRIN 81 MG CHEW TAB CHEW SCH (08:22)
[2017-01-30] MEDS: SODIUM CHLORIDE 0.9% FLUSH 10 ML FLUSH IV FLUSH SCH ×2 (08:23→21:48)
[2017-01-30] MEDS: LISINOPRIL 10 MG TAB PO SCH (09:00)
[2017-01-30] MEDS: CARVEDILOL 12.5 MG TAB PO SCH ×2 (09:00→21:49)
[2017-01-30] MEDS: DOCUSATE SODIUM 50 MG/SENNA 8.6 MG TAB PO SCH ×3 (09:00→21:48)
[2017-01-30] MEDS ORDERED: BENZOCAINE-MENTHOL (SUGAR FREE) 15 MG-3.6 MG LOZENGE BUCCAL PRN (09:15)
--- NOTE | 2017-01-30 09:44 | HHI.PR ---
Subjective Subjective Remarks s/p AICD explantation 01/29 c/o sore throat wants herndon out BP 98, asymptomatic feeling a little down today no fever no cp no sob surgical site tender, has JORGE output 50 since yesterday has dry, scaly rash arms, back, some pruritus Review of Systems Constitutional Constitutional Remarks 12 point ROS completed, negative except as noted above Vitals/Results Intake & Output 01/29/17 01/29/17 01/30/17 15:00 23:00 07:00 Intake Total 341 ml 1760 ml 1080 ml Output Total 750 ml 500 ml Balance 341 ml 1010 ml 580 ml Intake Oral 0 ml 360 ml 1080 ml IV Total 341 ml Other 1400 ml Output Urine Total 700 ml 450 ml Drainage Total 50 ml Estimated Blood Loss 50 ml # Voids 6 # Bowel Movements 1 0 0 Vital Signs Vital Signs Date Time Temp Pulse Resp B/P Pulse Ox O2 Delivery O2 Flow Rate FiO2 01/30/17 08:00 97.9 58 20 101/51 93 01/30/17 04:00 Room Air 01/30/17 04:00 98.2 63 20 97/55 96 01/30/17 00:10 97.8 70 18 112/57 98 01/30/17 00:00 Room Air 01/29/17 22:00 61 01/29/17 20:15 64 16 152/66 100 Nasal Cannula 2 01/29/17 20:00 Room Air 01/29/17 20:00 97.7 67 18 143/66 98 01/29/17 20:00 59 12 149/68 100 Nasal Cannula 2 01/29/17 19:45 60 16 160/70 100 Nasal Cannula 2 01/29/17 19:30 98.4 62 16 155/74 100 Nasal Cannula 2 01/29/17 19:30 175/63 01/29/17 16:00 97.8 61 20 132/69 98 01/29/17 12:00 98.2 64 20 116/66 99 CBC/BMP: 01/30/17 0533 01/26/17 0622 Lab Results Laboratory Tests Test 01/29/17 01/29/17 01/30/17 17:10 17:37 05:33 Blood Type A POSITIVE A POSITIVE Crossmatch Leukocyte-Reduced Red Blood Cells Blood Bank Comment White Blood Count 5.2 TH/MM3 Red Blood Count 3.42 MIL/MM3 Hemoglobin 9.8 GM/DL Hematocrit 28.6 % Mean Corpuscular Volume 83.5 FL Mean Corpuscular Hemoglobin 28.5 PG Mean Corpuscular Hemoglobin 34.1 % Concent Red Cell Distribution Width 14.9 % Platelet Count 154 TH/MM3 Mean Platelet Volume 7.8 FL Microbiology Microbiology 01/29/17 Gram Stain - Final, Resulted 01/29/17 Wound Culture, Resulted Pending 01/29/17 Acid Fast Stain, Received Pending 01/29/17 Mycobacterial Culture, Received Pending 01/29/17 Fungal Smear - Final, Resulted NO FUNGAL ELEMENTS SEEN. 01/29/17 Fungal Culture, Resulted Pending 01/29/17 Gram Stain - Final, Resulted 01/29/17 Wound Culture, Resulted Pending 01/29/17 Acid Fast Stain, Received Pending 01/29/17 Mycobacterial Culture, Received Pending 01/29/17 Fungal Smear - Final, Resulted NO FUNGAL ELEMENTS SEEN. 01/29/17 Fungal Culture, Resulted Pending Physical Exam General General Appearance: Well Developed, Well Nourished, No Acute Distress, Comfortable Eyes Eye Exam: Pupils Equal, Pupils Reactive, Extraocular Movement Intact Ears & Nose Ears & Nose Exam: Nasal Mucosa [place] Throat Throat Exam: Oral Mucosa [place] & Moist Neck Neck Exam: Neck Supple, Trachea Midline Pulmonary Resp Exam: Breath Sounds Equal Cardiology CV Exam: Regular, Normal Sinus Rhythm Chest/Breast Chest/Breast Remarks Left upper chest wall with dressing D/I JORGE with sanguineous drainage Gastrointestinal/Abdomen GI Exam: Soft, Non-Tender, Bowel Sounds Present, Non-Distended Genitourinary Exam: Clear Urine Remarks HERNDON Musculoskeletal MS Exam: Normal Gait, Normal Tone Integumentary Skin Exam: Warm, Dry Skin Remarks skin dry arms, back Extremeties Extremities Exam: No Edema, Pedal Pulses Palpable Neurologic Neuro Exam: Alert, Awake, Oriented, Speech Clear, Moving All Extremities, Environmental Lead Equal, No Focal Deficits Psychiatric Psych Exam: Appropriate Responses VTE Prophylaxis VTE Prophylaxis Meds: Heparin Assessment/Plan Assessment/Plan Bacteremia with Staphylococcus LUGDIUNENSIS, sensitivity noted High-grade fever prior to admission, none since Leukocytosis, resolved Left pleuritic chest pain, resolved Swelling at the ICD site with a sensation that the device has moved laterally, improving Hypokalemia Management Appreciate consultants input, cardiology, ID, cardiothoracic Patient on oxacillin now BC + Staphylococcus LUGDIUNENSIS, sensitivity noted S/P AICD and lead extraction 01/29 cultures done, follow Will need 6 weeks Abx after removal of hardware Echo done, EF 30-35% Positive rheumatoid factor, significance unknown We'll need to follow up with rheumatology as outpatient DVT prophylaxis with low-dose heparin Rash, dry skin monitor add Lac hydrin will let ID know BP 98, add parameters to DONNA and BB continue with IVF, NS at 20/hr asymptomatic Labs in am continue post op care dc herndon Cepacol lozenges PRN poss dc Wednesday or Wednesday CM consult for HHC, IV abx Discussed with patient Discussed with RN Discussed with Dr. Wang This patient was seen by myself and Dr. Wang, this note is written on his behalf Savi Fontenot Jan 30, 2017 09:44
--- NOTE | 2017-01-30 09:45 | HHI.FF ---
Face to Face Verification Diagnosis: (1) Sepsis (2) Aicd lead infection Home Health Nursing Order: Medical education Signs/symptoms of disease process Wound care and dressing changes Nursing assessment with vital signs IV medication administration I have seen patient Aaliyah Taylor on 01/30/17. My clinical findings support the need for the requested home health care services because: Need for psychosocial assistance Infection w/ risk of complications I certify that my clinical findings support that this patient is homebound because: Unsafe to leave home unassisted Need for psychosocial assistance Poor cardiac reserve Savi Fontenot [facility] Jan 30, 2017 09:45
[2017-01-30] MEDS: LACTIC ACID (AMMONIUM LACTATE) 12% LOTION 225 GM BTL TOPICAL SCH ×2 (12:54→21:50)
[2017-01-30] MEDS: ONDANSETRON HCL 4 MG/2 ML VIAL IVP PRN (13:03)
--- NOTE | 2017-01-30 15:17 | PD.CAR.PN ---
CVT Progress Note CVT: POD #: 1 Subjective/Hospital Course: No complaints, doing well Objective: Vital Signs Date Time Temp Pulse Resp B/P Pulse Ox O2 Delivery O2 Flow Rate FiO2 01/30/17 11:59 98.3 60 20 95/53 95 01/30/17 09:41 Room Air 01/30/17 08:00 97.9 58 20 101/51 93 01/30/17 04:00 Room Air 01/30/17 04:00 98.2 63 20 97/55 96 01/30/17 00:10 97.8 70 18 112/57 98 01/30/17 00:00 Room Air 01/29/17 22:00 61 01/29/17 20:15 64 16 152/66 100 Nasal Cannula 2 01/29/17 20:00 Room Air 01/29/17 20:00 97.7 67 18 143/66 98 01/29/17 20:00 59 12 149/68 100 Nasal Cannula 2 01/29/17 19:45 60 16 160/70 100 Nasal Cannula 2 01/29/17 19:30 98.4 62 16 155/74 100 Nasal Cannula 2 01/29/17 19:30 175/63 01/29/17 16:00 97.8 61 20 132/69 98 Labs: Laboratory Tests Test 01/30/17 05:33 White Blood Count 5.2 TH/MM3 (4.0-11.0) Red Blood Count 3.42 MIL/MM3 (4.00-5.30) Hemoglobin 9.8 GM/DL (11.6-15.3) Hematocrit 28.6 % (35.0-46.0) Mean Corpuscular Volume 83.5 FL (80.0-100.0) Mean Corpuscular Hemoglobin 28.5 PG (27.0-34.0) Mean Corpuscular Hemoglobin 34.1 % Concent (32.0-36.0) Red Cell Distribution Width 14.9 % (11.6-17.2) Platelet Count 154 TH/MM3 (150-450) Mean Platelet Volume 7.8 FL (7.0-11.0) Result Diagram: 01/30/17 0533 01/26/17 0622 Imaging: Last Impressions Chest X-Ray 01/29/17 0000 Signed Impressions: Service Date/Time: Sunday, January 29, 2017 19:58 - CONCLUSION: No acute disease. Hill Prieto MD CT Angiography 01/22/17 0000 Signed Impressions: Service Date/Time: Sunday, January 22, 2017 19:01 - CONCLUSION: No pulmonary embolus or other acute cardiopulmonary disease demonstrated. Homar Ashraf MD Cardiovascular: RRR Telemetry: NSR Pulmonary: CTA Incision: dry and intact, JORGE = 60 ml since OR Plan: D/C JORGE in AM Discharge per primary service (1) Sepsis Plan: Blood cultures positive for staph lugdenensis. ID following. Plan to extract ICD and lead today by Dr. Daily, then will require 6 weeks of antibiotics prior to reimplantation. Further management pending clinical course and Dr. Griffiths continued evaluation. Assessment and plan discussed with him, patient and RN. Betty Daily MD Jan 30, 2017 15:17
[2017-01-30] MEDS: ACETAMINOPHEN 325 MG TAB PO PRN (21:52)
[2017-01-30] MEDS: SODIUM CHLOR 0.9% 1000 ML INJ 1,000 ML IV SCH (22:26)
[2017-01-31] VITALS (7 sets, daily range): BP systolic 102–127; BP diastolic 55–76; PULSE 56–83; RESP 18; TEMP 97.7–98.3; O2SAT 93–98
[2017-01-31] MEDS: OXACILLIN INJ 2 GM in SODIUM CHLORIDE 0.9% INJ 100 ML IV SCH ×6 (00:17→20:58)
[2017-01-31] MEDS: HEPARIN SODIUM - SQ 10,000 UNITS/ML VIAL SQ SCH ×2 (00:17→12:23)
[2017-01-31 08:05] LABS: HEMATOCRIT 28.3 % (35.0-46.0); MEAN CELL VOLUME 83.5 FL (80.0-100.0); MEAN CORPUSCULAR HEMOGLOBIN 28.5 PG (27.0-34.0); MEAN CORPUSCULAR HGB CONC 34.2 % (32.0-36.0); PLATELET COUNT 160 TH/MM3 (150-450); RED BLOOD COUNT 3.39 MIL/MM3 (4.00-5.30); REVIEW FLAG FINAL; WHITE BLOOD COUNT 3.6 TH/MM3 (4.0-11.0)
[2017-01-31 08:27] LABS: BICARBONATE 24.6 MEQ/L (21.0-32.0); POTASSIUM 3.4 MEQ/L (3.5-5.1)
[2017-01-31] MEDS: LACTOBACILLUS ACIDOPHILUS TAB PO SCH ×3 (08:54→18:43)
[2017-01-31] MEDS: ASPIRIN 81 MG CHEW TAB CHEW SCH (08:55)
[2017-01-31] MEDS: DOCUSATE SODIUM 50 MG/SENNA 8.6 MG TAB PO SCH ×2 (08:55→20:58)
[2017-01-31] MEDS: CARVEDILOL 12.5 MG TAB PO SCH ×2 (08:55→20:58)
[2017-01-31] MEDS: LISINOPRIL 10 MG TAB PO SCH (08:55)
[2017-01-31] MEDS: SODIUM CHLORIDE 0.9% FLUSH 10 ML FLUSH IV FLUSH SCH ×2 (08:56→20:59)
[2017-01-31] MEDS: LACTIC ACID (AMMONIUM LACTATE) 12% LOTION 225 GM BTL TOPICAL SCH ×2 (08:57→20:59)
[2017-01-31] MEDS: ACETAMINOPHEN 325 MG TAB PO PRN ×3 (08:57→20:58)
--- NOTE | 2017-01-31 10:30 | HHI.IDPN ---
Subjective Subjective Remarks Patient is a 61-year-old female, was been having intermittent fevers in the last 3 weeks. The fever would occur at any time of the day. Over the last week the fevers have been more persistent. She would occasionally have rigors. She denies any night sweats. She's also had some sore throat, but denies any swallowing difficulty. There's been no cough or any shortness of breath. Son has some left-sided headache which is more all an achy type pain. She's had some nausea but no shree vomiting. She's also started having pain on the left side of her chest under her breasts. She has not had any urinary complaint. She has some mild achiness in her left arm. No significant back pain. No skin rash, no joint swelling noted. Her last travel was within the last year and he was in [place]. She has dogs and cats in her home but they've been with her for a while. No exposure to any other animals. No exposure to any sick child. She saw her primary care physician, and was supposed to get some blood work done. She's had about 6 pound weight loss in the last 3 weeks. Her appetite has been poor. She's had mammogram that was normal. Her last colonoscopy was about a year ago and that was okay. She has not had any Pap smear, since according to her she's had a hysterectomy done. Since admission she's had a fever of 103.1. Urinalysis has some hematuria. WBC is mildly elevated. Her LFTs are unremarkable. Chest x-rays normal.ID Notes reviewed S/P removal of AICD and lead extraction 01/29 Temps normal Stool better JORGE still in place BC with Staph lugdunensis - last (+) 01/23 BC 01/25 negative Antibiotics Oxacillin Lines PIV Past Medical History Chronic systolic heart failure Ejection fraction 35% Recurrent urinary infection Hypertension Possible Hyperlipidemia Small bowel obstruction Torn ligaments of the right knee Right lower extremity DVT, completed 3 months of oral anticoagulation Past Surgical History Defibrillator insertion Hysterectomy complicated with bowel perforation partial colectomy Allergies: Coded Allergies: No Known Allergies (Unverified , 11/29/15) Objective . Vital Signs Date Time Temp Pulse Resp B/P Pulse Ox O2 Delivery O2 Flow Rate FiO2 01/31/17 08:00 98.3 66 18 108/76 97 01/31/17 04:00 98.0 60 18 117/56 95 01/31/17 00:00 97.7 62 18 119/56 96 01/30/17 21:00 Room Air 01/30/17 20:17 68 01/30/17 20:00 98.2 64 17 116/57 98 01/30/17 16:36 69 01/30/17 15:29 98.2 63 20 105/58 95 01/30/17 11:59 98.3 60 20 95/53 95 01/30/17 01/30/17 01/31/17 15:00 23:00 07:00 Intake Total 744 ml 611 ml 680 ml Output Total 10 ml 567 ml 500 ml Balance 734 ml 44 ml 180 ml Intake Oral 360 ml 320 ml 240 ml IV Total 384 ml 291 ml 440 ml Output Urine Total 560 ml 500 ml Drainage Total 10 ml 7 ml # Voids 2 # Bowel Movements 0 0 . Laboratory Tests Test 01/30/17 01/31/17 05:33 06:52 White Blood Count 5.2 TH/MM3 3.6 TH/MM3 Red Blood Count 3.42 MIL/MM3 3.39 MIL/MM3 Hemoglobin 9.8 GM/DL 9.7 GM/DL Hematocrit 28.6 % 28.3 % Mean Corpuscular Volume 83.5 FL 83.5 FL Mean Corpuscular Hemoglobin 28.5 PG 28.5 PG Mean Corpuscular Hemoglobin 34.1 % 34.2 % Concent Red Cell Distribution Width 14.9 % 15.0 % Platelet Count 154 TH/MM3 160 TH/MM3 Mean Platelet Volume 7.8 FL 7.9 FL Laboratory Tests Test 01/31/17 06:52 Sodium Level 142 MEQ/L Potassium Level 3.4 MEQ/L Chloride Level 109 MEQ/L Carbon Dioxide Level 24.6 MEQ/L Anion Gap 8 MEQ/L Blood Urea Nitrogen 5 MG/DL Creatinine 0.58 MG/DL Estimat Glomerular Filtration 105 ML/MIN Rate Random Glucose 79 MG/DL Calcium Level 8.2 MG/DL Microbiology Date/Time Procedure Status Source Growth 01/29/17 00:00 Gram Stain - Final Resulted Wound Other 01/29/17 00:00 Wound Culture - Preliminary Resulted Wound Other RESULTS PENDING 01/29/17 00:00 Fungal Smear - Final Resulted Other NO FUNGAL ELEMENTS SEEN. 01/29/17 00:00 Fungal Culture Resulted Other Pending 01/29/17 00:00 Acid Fast Stain Received Other Pending 01/29/17 00:00 Mycobacterial Culture Received Other Pending 01/29/17 19:37 Gram Stain - Final Resulted Wound Other 01/29/17 19:37 Wound Culture - Preliminary Resulted Wound Other NO GROWTH IN 24 HOURS. 01/29/17 19:37 Acid Fast Stain Received Wound Other Pending 01/29/17 19:37 Mycobacterial Culture Received Wound Other Pending 01/29/17 19:37 Fungal Smear - Final Resulted Wound Other NO FUNGAL ELEMENTS SEEN. 01/29/17 19:37 Fungal Culture Resulted Wound Other Pending 01/29/17 19:38 Gram Stain - Final Resulted Wound Other 01/29/17 19:38 Wound Culture - Preliminary Resulted Wound Other NO GROWTH IN 24 HOURS. 01/29/17 19:38 Acid Fast Stain Received Wound Other Pending 01/29/17 19:38 Mycobacterial Culture Received Wound Other Pending 01/29/17 19:38 Fungal Smear - Final Resulted Wound Other NO FUNGAL ELEMENTS SEEN. 01/29/17 19:38 Fungal Culture Resulted Wound Other Pending Imaging Last Impressions Chest X-Ray 01/22/17 0951 Signed Impressions: Service Date/Time: Sunday, January 22, 2017 09:51 - CONCLUSION: 1. No acute cardiopulmonary findings. Jared Weinstein MD CT Angiography 01/22/17 0000 Signed Impressions: Service Date/Time: Sunday, January 22, 2017 19:01 - CONCLUSION: No pulmonary embolus or other acute cardiopulmonary disease demonstrated. Homar Asharf MD Physical Exam GENERAL: awake and alert, not in respiratory distress. OOB in a chair SKIN: Warm and dry. No generalized rash, no ecchymoses and no evidence of embolic lesions. EYES: [place] conjunctiva. No petechia or hemorrhage. No scleral icterus. No injection or drainage. EARS, NOSE AND THROAT: Mucous membranes pink and moist. No oral lesions noted. No oral thrush. CARDIOVASCULAR: Regular rate and rhythm. Has murmur at the base on heart, no rubs Previous AICD site with steristrips on incision, has area of erythema in medial aspect of incision and above it, indurated. JORGE in place, with serosanguineous fluid. RESPIRATORY: Clear to auscultation. Breath sounds equal bilaterally. No rales , wheezing or rhonchi. ABDOMEN: Soft, non-tender, nondistended. Bowel sounds present and normoactive. No guarding. No rebound. No organomegaly. EXTREMITIES: No clubbing, cyanosis, or edema. No calf tenderness. . NEUROLOGICAL: Non-focal PSYCHIATRIC: Normal affect, calm and cooperative. 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
--- NOTE | 2017-01-31 11:39 | HHI.PR ---
Subjective Subjective Remarks s/p AICD explantation 01/29 sore throat better voiding okay BP 110s no fever no cp no sob surgical site tender, has JORGE output 17 since yesterday Review of Systems Constitutional Constitutional Remarks 12 point ROS completed, negative except as noted above Vitals/Results Intake & Output 01/30/17 01/30/17 01/31/17 15:00 23:00 07:00 Intake Total 744 ml 611 ml 680 ml Output Total 10 ml 567 ml 500 ml Balance 734 ml 44 ml 180 ml Intake Oral 360 ml 320 ml 240 ml IV Total 384 ml 291 ml 440 ml Output Urine Total 560 ml 500 ml Drainage Total 10 ml 7 ml # Voids 2 # Bowel Movements 0 0 Vital Signs Vital Signs Date Time Temp Pulse Resp B/P Pulse Ox O2 Delivery O2 Flow Rate FiO2 01/31/17 08:00 98.3 66 18 108/76 97 01/31/17 04:00 98.0 60 18 117/56 95 01/31/17 00:00 97.7 62 18 119/56 96 01/30/17 21:00 Room Air 01/30/17 20:17 68 01/30/17 20:00 98.2 64 17 116/57 98 01/30/17 16:36 69 01/30/17 15:29 98.2 63 20 105/58 95 01/30/17 11:59 98.3 60 20 95/53 95 CBC/BMP: 01/31/17 0652 01/31/17 0652 Lab Results Laboratory Tests Test 01/31/17 06:52 White Blood Count 3.6 TH/MM3 Red Blood Count 3.39 MIL/MM3 Hemoglobin 9.7 GM/DL Hematocrit 28.3 % Mean Corpuscular Volume 83.5 FL Mean Corpuscular Hemoglobin 28.5 PG Mean Corpuscular Hemoglobin 34.2 % Concent Red Cell Distribution Width 15.0 % Platelet Count 160 TH/MM3 Mean Platelet Volume 7.9 FL Sodium Level 142 MEQ/L Potassium Level 3.4 MEQ/L Chloride Level 109 MEQ/L Carbon Dioxide Level 24.6 MEQ/L Anion Gap 8 MEQ/L Blood Urea Nitrogen 5 MG/DL Creatinine 0.58 MG/DL Estimat Glomerular Filtration 105 ML/MIN Rate Random Glucose 79 MG/DL Calcium Level 8.2 MG/DL Physical Exam General General Appearance: Well Developed, Well Nourished, No Acute Distress, Comfortable Eyes Eye Exam: Pupils Equal, Pupils Reactive, Extraocular Movement Intact Ears & Nose Ears & Nose Exam: Nasal Mucosa [place] Throat Throat Exam: Oral Mucosa [place] & Moist Neck Neck Exam: Neck Supple, Trachea Midline Pulmonary Resp Exam: Breath Sounds Equal Cardiology CV Exam: Regular, Normal Sinus Rhythm Chest/Breast Chest/Breast Remarks Left upper chest wall with dressing D/I incision with mild erythema JORGE with sanguineous drainage Gastrointestinal/Abdomen GI Exam: Soft, Non-Tender, Bowel Sounds Present, Non-Distended Genitourinary Exam: Clear Urine Remarks CARTER Musculoskeletal MS Exam: Normal Gait, Normal Tone Integumentary Skin Exam: Warm, Dry Skin Remarks skin dry arms, back Extremeties Extremities Exam: No Edema, Pedal Pulses Palpable Neurologic Neuro Exam: Alert, Awake, Oriented, Speech Clear, Moving All Extremities, Wireline Supervisor Equal, No Focal Deficits Psychiatric Psych Exam: Appropriate Responses VTE Prophylaxis VTE Prophylaxis Meds: Heparin Assessment/Plan Assessment/Plan Bacteremia with Staphylococcus LUGDIUNENSIS, sensitivity noted High-grade fever prior to admission, none since Leukocytosis, resolved Left pleuritic chest pain, resolved Swelling at the ICD site with a sensation that the device has moved laterally, improving Hypokalemia Management Appreciate consultants input, cardiology, ID, cardiothoracic Patient on oxacillin now BC + Staphylococcus LUGDIUNENSIS, sensitivity noted S/P AICD and lead extraction 01/[address], poss dc today, jun. output cultures done, follow, negative so far Will need 6 weeks Abx after removal of hardware d/w Dr. Chauhan, PICC can be ordered for tomorrow, right arm Echo done, EF 30-35% Positive rheumatoid factor, significance unknown We'll need to follow up with rheumatology as outpatient DVT prophylaxis with low-dose heparin Rash, dry skin -better monitor continue Lac hydrin BP 98, add parameters to DONNA and BB Coreg decreased, HR better Labs reviewed, replace K continue post op care poss dc Wednesday or Wednesday CM consult for HHC, IV abx Discussed with patient Discussed with RN Discussed with Dr. Wagner This patient was seen by myself and , this note is written on his behalf Savi Fontenot Jan 31, 2017 11:38
[2017-01-31] MEDS ORDERED: POTASSIUM CHLORIDE 25 MEQ EFFERVESCENT TAB PO ONE (11:45)
[2017-01-31] MEDS: SODIUM CHLOR 0.9% 1000 ML INJ 1,000 ML IV SCH (22:26)
[2017-02-01] VITALS (7 sets, daily range): BP systolic 125–154; BP diastolic 62–85; PULSE 57–75; RESP 16–20; TEMP 97.3–98.5; O2SAT 94–98
[2017-02-01] MEDS: OXACILLIN INJ 2 GM in SODIUM CHLORIDE 0.9% INJ 100 ML IV SCH ×3 (00:28→08:23)
[2017-02-01] MEDS: HEPARIN SODIUM - SQ 10,000 UNITS/ML VIAL SQ SCH ×2 (00:28→11:46)
[2017-02-01] MEDS: ACETAMINOPHEN 325 MG TAB PO PRN ×2 (06:08→17:14)
[2017-02-01 07:01] LABS: AUTOMATED NEUTROPHIL # 1.7 TH/MM3 (1.8-7.7); EOSINOPHIL # 0.1 TH/MM3 (0-0.4); EOSINOPHIL % 3.9 % (0.0-4.0); HEMATOCRIT 29.6 % (35.0-46.0); HEMO FLAGS DIFF FINAL; LYMPH % 34.8 % (9.0-44.0); LYMPHOCYTE # 1.2 TH/MM3 (1.0-4.8); MEAN CORPUSCULAR HEMOGLOBIN 28.3 PG (27.0-34.0); MEAN CORPUSCULAR HGB CONC 33.4 % (32.0-36.0); MONO % 10.6 % (0.0-8.0); NEUT % 49.7 % (16.0-70.0); PLATELET COUNT 167 TH/MM3 (150-450); RED BLOOD COUNT 3.48 MIL/MM3 (4.00-5.30); RED CELL DISTRIBUTION WIDTH 15.3 % (11.6-17.2); WHITE BLOOD COUNT 3.5 TH/MM3 (4.0-11.0)
[2017-02-01] MEDS: ASPIRIN 81 MG CHEW TAB CHEW SCH (08:22)
[2017-02-01] MEDS: CARVEDILOL 12.5 MG TAB PO SCH ×2 (08:22→21:05)
[2017-02-01] MEDS: DOCUSATE SODIUM 50 MG/SENNA 8.6 MG TAB PO SCH ×2 (08:22→21:00)
[2017-02-01] MEDS: LISINOPRIL 10 MG TAB PO SCH (08:22)
[2017-02-01] MEDS: LACTOBACILLUS ACIDOPHILUS TAB PO SCH ×3 (08:22→17:13)
[2017-02-01] MEDS: SODIUM CHLORIDE 0.9% FLUSH 10 ML FLUSH IV FLUSH SCH ×2 (08:23→21:05)
[2017-02-01] MEDS: LACTIC ACID (AMMONIUM LACTATE) 12% LOTION 225 GM BTL TOPICAL SCH ×2 (08:23→21:00)
--- NOTE | 2017-02-01 10:03 | HHI.PR ---
Subjective Subjective Remarks s/p AICD explantation 01/29 no fever minimal pain, inc. with movement JORGE removed no cp no sob anxious to go home Review of Systems Constitutional Constitutional Remarks 12 point ROS completed, negative except as noted above Vitals/Results Intake & Output 01/31/17 01/31/17 02/01/17 15:00 23:00 07:00 Intake Total 717 ml 0 ml Balance 717 ml 0 ml Intake Oral 240 ml 0 ml IV Total 477 ml # Voids 3 1 # Bowel Movements 1 0 Vital Signs Vital Signs Date Time Temp Pulse Resp B/P Pulse Ox O2 Delivery O2 Flow Rate FiO2 02/01/17 08:00 98.2 63 20 136/69 94 02/01/17 04:45 97.5 57 16 133/62 98 02/01/17 00:32 97.3 59 16 125/71 97 01/31/17 20:43 60 01/31/17 20:00 Room Air 01/31/17 19:22 97.8 56 18 127/58 98 01/31/17 19:22 97.8 56 18 127/58 98 01/31/17 16:00 98.1 60 18 102/55 94 01/31/17 12:00 98.2 83 18 115/56 93 CBC/BMP: 02/01/17 0553 01/31/17 0652 Lab Results Laboratory Tests Test 02/01/17 05:53 White Blood Count 3.5 TH/MM3 Red Blood Count 3.48 MIL/MM3 Hemoglobin 9.9 GM/DL Hematocrit 29.6 % Mean Corpuscular Volume 85.0 FL Mean Corpuscular Hemoglobin 28.3 PG Mean Corpuscular Hemoglobin 33.4 % Concent Red Cell Distribution Width 15.3 % Platelet Count 167 TH/MM3 Mean Platelet Volume 7.6 FL Neutrophils (%) (Auto) 49.7 % Lymphocytes (%) (Auto) 34.8 % Monocytes (%) (Auto) 10.6 % Eosinophils (%) (Auto) 3.9 % Basophils (%) (Auto) 1.0 % Neutrophils # (Auto) 1.7 TH/MM3 Lymphocytes # (Auto) 1.2 TH/MM3 Monocytes # (Auto) 0.4 TH/MM3 Eosinophils # (Auto) 0.1 TH/MM3 Basophils # (Auto) 0.0 TH/MM3 CBC Comment DIFF FINAL Differential Comment Physical Exam General General Appearance: Well Developed, Well Nourished, No Acute Distress, Comfortable Eyes Eye Exam: Pupils Equal, Pupils Reactive, Extraocular Movement Intact Ears & Nose Ears & Nose Exam: Nasal Mucosa [place] Throat Throat Exam: Oral Mucosa [place] & Moist Neck Neck Exam: Neck Supple, Trachea Midline Pulmonary Resp Exam: Breath Sounds Equal Cardiology CV Exam: Regular, Normal Sinus Rhythm Chest/Breast Chest/Breast Remarks Left upper chest wall with dressing D/I incision with faint erythema JORGE removed Gastrointestinal/Abdomen GI Exam: Soft, Non-Tender, Bowel Sounds Present, Non-Distended Musculoskeletal MS Exam: Normal Gait, Normal Tone Integumentary Skin Exam: Warm, Dry Skin Remarks skin dry arms, back Extremeties Extremities Exam: No Edema, Pedal Pulses Palpable Neurologic Neuro Exam: Alert, Awake, Oriented, Speech Clear, Moving All Extremities, Cement Car Dumper Equal, No Focal Deficits Psychiatric Psych Exam: Appropriate Responses VTE Prophylaxis VTE Prophylaxis Meds: Heparin Assessment/Plan Assessment/Plan Bacteremia with Staphylococcus LUGDIUNENSIS, sensitivity noted High-grade fever prior to admission, none since Leukocytosis, resolved Left pleuritic chest pain, resolved Swelling at the ICD site with a sensation that the device has moved laterally, improving Hypokalemia Management Appreciate consultants input, cardiology, ID, cardiothoracic changed to Ancef today BC + Staphylococcus LUGDIUNENSIS, sensitivity noted S/P AICD and lead extraction 01/29 JORGE removed cultures done, follow, negative so far Will need 6 weeks Abx after removal of hardware PICC today Echo done, EF 30-35% Positive rheumatoid factor, significance unknown We'll need to follow up with rheumatology as outpatient DVT prophylaxis with low-dose heparin Rash, dry skin -better monitor continue Lac hydrin BP 98, added parameters to DONNA and BB Coreg decreased, HR and BP better CM for dc planning, HHC for IV abx Waiting for Dr. Jansen, ? pt may need vest while waiting for reimplantation of AICD poss dc today Discussed with patient Discussed with RN Discussed with Dr. Wagner Discussed with CM This patient was seen by myself and , this note is written on his behalf Savi Fontenot Feb 01, 2017 10:[address] Wagner This patient was seen by myself and , this note is written on his behalf Savi FontenotP Feb 01, 2017 10:03
--- NOTE | 2017-02-01 10:18 | HHI.FF ---
Infusion Therapy Location of Infusion Therapy: [facility] IV Infusion Order Patient Information Patient Weight 80.4 kg Diagnosis: Diagnosis Staph lugdunensis sepsis due to AICD infection Coded Allergies: No Known Allergies (Unverified , 11/29/15) Administer Medication Cefazolin 2 grams IV q 8 hours Ancef 2 gm IV q8h CADD plus pump Stop Treatment: Mar 11, 2017 Additional Information Venous access: PICC Line Additional Instructions [x] Peripheral flush and dressing changes per protocol [x] Implanted port and central millinery blocker: * Implanted port: 10 ml Normal Saline followed by 5 ml Heparin 100 units/ml Heparin flush after each use and monthly to maintain. [] May leave port accessed during therapy. [] May leave peripheral site accessed for duration of therapy. [x] If patient has SOB or respiratory distress, check oxygen saturation. If less than 90% or clinical signs of respiratory distress, administer oxygen at 2 L/min. via nasal cannula and notify physician. [x] Anaphylaxis/Reaction orders: * Stop infusion. * Keep IV line open with saline flush. * Notify physician. * Monitor vital signs every 15 minutes until symptoms resolve. * Check Oxygen saturation; Oxygen at 2 L/min. via nasal cannula if less than 90% or clinical signs of respiratory distress. * Administer diphenhydramine (Benadryl) 25 mg IV STAT, (unless patient has received as pre-med). May repeat once, if necessary. * Solu-Cortef 250 mg IVP over 30-60 seconds, use 100 mg vials for each dissolution. * Epinephrine (1mg/1 ml) 0.3 mg subcutaneously or IVP now with any signs of respiratory distress. * Check with physician for new additional pre-med orders if patient is re- challenged or re-treated. [x] May remove PICC line when treatment complete, after confirming with Physician. [x] If the patient is admitted to the hospital, the ED, or transferred via [facility] , complete transfer form including medication reconciliation order sheet. Laboratory Tests Weekly Labs: CBC w/diff, Creatinine, LFT's (Hepatic function test) (labs every wednesday - copy to ms) Arlene Chauhan MD Feb 01, 2017 10:18
--- NOTE | 2017-02-01 10:20 | HHI.IDPN ---
Subjective Subjective Remarks Patient is a 61-year-old female, was been having intermittent fevers in the last 3 weeks. The fever would occur at any time of the day. Over the last week the fevers have been more persistent. She would occasionally have rigors. She denies any night sweats. She's also had some sore throat, but denies any swallowing difficulty. There's been no cough or any shortness of breath. Son has some left-sided headache which is more all an achy type pain. She's had some nausea but no shree vomiting. She's also started having pain on the left side of her chest under her breasts. She has not had any urinary complaint. She has some mild achiness in her left arm. No significant back pain. No skin rash, no joint swelling noted. Her last travel was within the last year and he was in [place]. She has dogs and cats in her home but they've been with her for a while. No exposure to any other animals. No exposure to any sick child. She saw her primary care physician, and was supposed to get some blood work done. She's had about 6 pound weight loss in the last 3 weeks. Her appetite has been poor. She's had mammogram that was normal. Her last colonoscopy was about a year ago and that was okay. She has not had any Pap smear, since according to her she's had a hysterectomy done. Since admission she's had a fever of 103.1. Urinalysis has some hematuria. WBC is mildly elevated. Her LFTs are unremarkable. Chest x-rays normal.ID Notes reviewed S/P removal of AICD and lead extraction 01/29 Temps normal JORGE removed No new complaint WBC remaining in 3 range, ?due to oxacillin BC with Staph lugdunensis - last (+) BC 01/23 BC 01/25 negative Antibiotics Oxacillin Lines PIV Past Medical History Chronic systolic heart failure Ejection fraction 35% Recurrent urinary infection Hypertension Possible Hyperlipidemia Small bowel obstruction Torn ligaments of the right knee Right lower extremity DVT, completed 3 months of oral anticoagulation Past Surgical History Defibrillator insertion Hysterectomy complicated with bowel perforation partial colectomy Allergies: Coded Allergies: No Known Allergies (Unverified , 11/29/15) Objective . Vital Signs Date Time Temp Pulse Resp B/P Pulse Ox O2 Delivery O2 Flow Rate FiO2 02/01/17 08:00 98.2 63 20 136/69 94 02/01/17 04:45 97.5 57 16 133/62 98 02/01/17 00:32 97.3 59 16 125/71 97 01/31/17 20:43 60 01/31/17 20:00 Room Air 01/31/17 19:22 97.8 56 18 127/58 98 01/31/17 19:22 97.8 56 18 127/58 98 01/31/17 16:00 98.1 60 18 102/55 94 01/31/17 12:00 98.2 83 18 115/56 93 01/31/17 01/31/17 02/01/17 14:59 22:59 06:59 Intake Total 717 ml 0 ml Balance 717 ml 0 ml Intake Oral 240 ml 0 ml IV Total 477 ml # Voids 3 1 # Bowel Movements 1 0 . Laboratory Tests Test 01/31/17 02/01/17 06:52 05:53 White Blood Count 3.6 TH/MM3 3.5 TH/MM3 Red Blood Count 3.39 MIL/MM3 3.48 MIL/MM3 Hemoglobin 9.7 GM/DL 9.9 GM/DL Hematocrit 28.3 % 29.6 % Mean Corpuscular Volume 83.5 FL 85.0 FL Mean Corpuscular Hemoglobin 28.5 PG 28.3 PG Mean Corpuscular Hemoglobin 34.2 % 33.4 % Concent Red Cell Distribution Width 15.0 % 15.3 % Platelet Count 160 TH/MM3 167 TH/MM3 Mean Platelet Volume 7.9 FL 7.6 FL Neutrophils (%) (Auto) 49.7 % Lymphocytes (%) (Auto) 34.8 % Monocytes (%) (Auto) 10.6 % Eosinophils (%) (Auto) 3.9 % Basophils (%) (Auto) 1.0 % Neutrophils # (Auto) 1.7 TH/MM3 Lymphocytes # (Auto) 1.2 TH/MM3 Monocytes # (Auto) 0.4 TH/MM3 Eosinophils # (Auto) 0.1 TH/MM3 Basophils # (Auto) 0.0 TH/MM3 CBC Comment DIFF FINAL Differential Comment Laboratory Tests Test 01/31/17 06:52 Sodium Level 142 MEQ/L Potassium Level 3.4 MEQ/L Chloride Level 109 MEQ/L Carbon Dioxide Level 24.6 MEQ/L Anion Gap 8 MEQ/L Blood Urea Nitrogen 5 MG/DL Creatinine 0.58 MG/DL Estimat Glomerular Filtration 105 ML/MIN Rate Random Glucose 79 MG/DL Calcium Level 8.2 MG/DL Microbiology Date/Time Procedure Status Source Growth 01/29/17 19:37 Gram Stain - Final Resulted Wound Other 01/29/17 19:37 Wound Culture - Preliminary Resulted Wound Other NO GROWTH IN 48 HOURS. 01/29/17 19:37 Acid Fast Stain - Final Resulted Wound Other NO ACID FAST BACILLI SEEN 01/29/17 19:37 Mycobacterial Culture Resulted Wound Other Pending 01/29/17 19:37 Fungal Smear - Final Resulted Wound Other NO FUNGAL ELEMENTS SEEN. 01/29/17 19:37 Fungal Culture Resulted Wound Other Pending 01/29/17 19:38 Gram Stain - Final Resulted Wound Other 01/29/17 19:38 Wound Culture - Preliminary Resulted Wound Other 01/29/17 19:38 Acid Fast Stain - Final Resulted Wound Other NO ACID FAST BACILLI SEEN 01/29/17 19:38 Mycobacterial Culture Resulted Wound Other Pending 01/29/17 19:38 Fungal Smear - Final Resulted Wound Other NO FUNGAL ELEMENTS SEEN. 01/29/17 19:38 Fungal Culture Resulted Wound Other Pending Imaging Last Impressions Chest X-Ray 01/22/17 0951 Signed Impressions: Service Date/Time: Sunday, January 22, 2017 09:51 - CONCLUSION: 1. No acute cardiopulmonary findings. Jared Weinstein MD CT Angiography 01/22/17 0000 Signed Impressions: Service Date/Time: Sunday, January 22, 2017 19:01 - CONCLUSION: No pulmonary embolus or other acute cardiopulmonary disease demonstrated. Homar Ashraf MD Physical Exam GENERAL: awake and alert, not in respiratory distress. OOB in a chair SKIN: Warm and dry. No generalized rash, no ecchymoses and no evidence of embolic lesions. EYES: [place] conjunctiva. No petechia or hemorrhage. No scleral icterus. No injection or drainage. EARS, NOSE AND THROAT: Mucous membranes pink and moist. No oral lesions noted. No oral thrush. CARDIOVASCULAR: Regular rate and rhythm. Has murmur at the base on heart, no rubs Previous AICD site with steristrips on incision, has improving area of erythema in medial aspect of incision and above it, less indurated. RESPIRATORY: Clear to auscultation. Breath sounds equal bilaterally. No rales , wheezing or rhonchi. ABDOMEN: Soft, non-tender, nondistended. Bowel sounds present and normoactive. No guarding. No rebound. No organomegaly. EXTREMITIES: No clubbing, cyanosis, or edema. No calf tenderness. . NEUROLOGICAL: Non-focal PSYCHIATRIC: Normal affect, calm and cooperative. 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
[2017-02-01] MEDS ORDERED: LISI10TA3 PO (10:45)
[2017-02-01] MEDS ORDERED: CARV12.5 PO (10:45)
[2017-02-01] MEDS ORDERED: cefTRIAXone INJ 2,000 MG in SODIUM CHLORIDE 0.9% INJ 100 ML IV SCH (11:00)
[2017-02-01] MEDS: ceFAZolin 2 GM PREMIX 50 ML IV SCH ×2 (11:46→21:04)
[2017-02-01] MEDS ORDERED: DEFIB EXTERNAL (12:56)
--- NOTE | 2017-02-01 16:04 | RADRPT ---
EXAM DATE/TIME: 02/01/2017 15:32 [facility] COMPARISON: CT PULMONARY ANGIOGRAM, January 22, 2017, 19:01. CHEST SINGLE AP, January 29, 2017, 19:58. INDICATIONS : Post right side PICC line. MEDICAL HISTORY : Stroke. Hypertension SURGICAL HISTORY : None. ENCOUNTER: Initial ACUITY: 3 days PAIN SCORE: 0/10 LOCATION: Bilateral chest FINDINGS: A right-sided PICC line has its tip at the junction of the superior vena cava and right atrium. The heart is mildly prominent. The pulmonary vascular pattern is normal. The lungs are clear without in filtrate. There is a calcified granuloma within the right lung base which is stable. CONCLUSION: 1. Right-sided PICC line has its tip in good position at the junction of the superior vena cava and r ight atrium. 2. Cardiomegaly. 3. No acute focal pulmonary infiltrate or pulmonary vascular congestion. 4. Stable calcified granuloma within the right lung base. Jaun Clark MD on February 01, 2017 at 15:56 Board Certified Radiologist. This report was verified electronically.
[2017-02-01] MEDS ORDERED: SODIUM CHLORIDE 0.9% FLUSH 10 ML FLUSH IV FLUSH PRN (19:45)
[2017-02-01] MEDS: SODIUM CHLOR 0.9% 1000 ML INJ 1,000 ML IV SCH (22:26)
[2017-02-02] VITALS: BP 132/66; PULSE 62; RESP 18; TEMP 97.4; O2SAT 97
[2017-02-02] MEDS: HEPARIN SODIUM - SQ 10,000 UNITS/ML VIAL SQ SCH ×2 (01:19→13:26)
[2017-02-02] MEDS: ceFAZolin 2 GM PREMIX 50 ML IV SCH ×2 (05:10→13:26)
[2017-02-02] MEDS: ACETAMINOPHEN 325 MG TAB PO PRN (05:57)
[2017-02-02 06:00] VITALS: BP 102/69; PULSE 66; RESP 18; TEMP 98.4; O2SAT 97
[2017-02-02 08:07] VITALS: BP 102/59; PULSE 68; RESP 16; TEMP 98.9; O2SAT 95
[2017-02-02] MEDS ORDERED: SODIUM CHLORIDE 0.9% FLUSH 10 ML FLUSH IV FLUSH SCH (09:00)
[2017-02-02] MEDS: LACTIC ACID (AMMONIUM LACTATE) 12% LOTION 225 GM BTL TOPICAL SCH (09:00)
--- NOTE | 2017-02-02 09:18 | HHI.PR ---
Subjective Subjective Remarks Up in chair Plan for discharge today pending home health set up Afebrile No acute pain or shortness of breath Cough, nonproductive, lisinopril? (Bree Messina) Review of Systems Constitutional Constitutional Remarks 10 point ROS done positives noted (Bree Messina) Integumentary Skin: Wounds (left shoulder AICD removal, Steri-Strips on , no erythema noted) (Bree Messina) Psychiatric Psychiatric: Normal Mood, Anxiety (ready to go home) (Bree Messina) Vitals/Results Intake & Output 02/01/17 02/01/17 02/02/17 15:00 23:00 07:00 Intake Total 240 ml 720 ml Balance 240 ml 720 ml Intake Oral 240 ml 720 ml # Voids 6 3 # Bowel Movements 2 0 Vital Signs Vital Signs Date Time Temp Pulse Resp B/P Pulse Ox O2 Delivery O2 Flow Rate FiO2 02/02/17 06:00 98.4 66 18 102/69 97 02/02/17 00:00 97.4 62 18 132/66 97 02/01/17 20:00 Room Air 02/01/17 20:00 98.0 65 18 133/65 96 02/01/17 16:00 98.5 64 20 154/72 96 02/01/17 12:00 98.5 68 20 137/85 96 (Bree Messina) CBC/BMP: 02/01/17 0553 01/31/17 0652 Physical Exam General General Appearance: Well Developed, Well Nourished, No Acute Distress, Comfortable (Bree Messina) Eyes Eye Exam: Pupils Equal, Pupils Reactive, Extraocular Movement Intact (Bree Messina) Ears & Nose Ears & Nose Exam: Nasal Mucosa [place] (Bree Messina) Throat Throat Exam: Oral Mucosa [place] & Moist (Bree Messina) Neck Neck Exam: Neck Supple, Trachea Midline (Bree Messina) Pulmonary Resp Exam: Breath Sounds Equal (Bree Messina) Cardiology CV Exam: Regular, Normal Sinus Rhythm CV Remarks hacky cough probable from lisinopril (Bree MessinaP) Gastrointestinal/Abdomen GI Exam: Soft, Non-Tender, Bowel Sounds Present, Non-Distended (Bree Messina FULL STACK PYTHON DEVELOPER) Musculoskeletal MS Exam: Normal Gait, Normal Tone (Bree Messina F[employer] ST[employer] PYTHON DEVELOPER) Integumentary Skin Exam: Warm, Dry (Bree Messina F[employer] ST[employer] PYTHON DEVELOPER) Extremeties Extremities Exam: No Edema, Pedal Pulses Palpable (Bree Messina F[employer] ST[employer] PYTHON DEVELOPER) Neurologic Neuro Exam: Alert, Awake, Oriented, Speech Clear, Moving All Extremities, [employer] Basis Trader Equal, No Focal Deficits (Bree Messina F[employer] ST[employer] PYTHON DEVELOPER) Psychiatric Psych Exam: Appropriate Responses (Bree Messina) VTE Prophylaxis VTE Prophylaxis Meds: Heparin (Bree Messina) Assessment/Plan Assessment/Plan Vital signs reviewed patient's afebrile, BP low normal 102/69 asymptomatic from any dizziness chest pain or shortness of breath Labs reviewed anemia, stable at 9.9, continue continue to monitor her WBC count 3.5 from 7-24 Bacteremia with Staphylococcus LUGDIUNENSIS, sensitivity noted High-grade fever prior to admission, none since Leukocytosis, resolved Left pleuritic chest pain, resolved Swelling at the ICD site with a sensation that the device has moved laterally, improving Hypokalemia Management Appreciate consultants input, cardiology, ID, cardiothoracic input changed to Ancef today BC + Staphylococcus LUGDIUNENSIS, sensitivity noted S/P AICD and lead extraction 01/29 cultures wound and blood positive, Will need 6 weeks Abx after removal of hardware PICC today Echo done, EF 30-35% Cough, dry hacky, patient states symptoms noted after lisinopril. DC'd for now , patient will monitor symptoms at home and follow-up with cardiology. BP low normal stable Positive rheumatoid factor, significance unknown We'll need to follow up with rheumatology as outpatient DVT prophylaxis with low-dose heparin Rash, dry skin -improved BP 98, Coreg decreased, HR and BP better CM for dc planning, [facility] for IV abx Discharge planning will include life vest on patient Plan for discharge today, case management still pending home health care, which should have set up done this a.m. Also will have long-term IV antibiotics at home, vital signs monitoring and wound care monitoring Discussed with patient Discussed with RN Discussed with Dr. Wagner seen on her behalf, Discussed with CM (Bree Messina) Assessment/Plan patient seen and examiend agree with above assessment and plan cough with lisinopril, also low BP d/c lisinopril change to Losartan decrease Coreg to 12.5 mg po bid ok to d/c home with [facility] Life vest delivered plan of care discussed with patient plan of care discussed with Bree WALSH follow up outpatient with Dr Jansen (Isaura Wagner MD) Bree Messina Feb 02, 2017 09:18 Isaura Wagner MD Feb 02, 2017 14:01
[2017-02-02] MEDS: SODIUM CHLORIDE 0.9% FLUSH 10 ML FLUSH IV FLUSH SCH (09:19)
[2017-02-02] MEDS: LACTOBACILLUS ACIDOPHILUS TAB PO SCH ×2 (09:19→13:26)
[2017-02-02] MEDS: ASPIRIN 81 MG CHEW TAB CHEW SCH (09:19)
[2017-02-02] MEDS: LISINOPRIL 10 MG TAB PO SCH (09:19)
[2017-02-02] MEDS: CARVEDILOL 12.5 MG TAB PO SCH (09:19)
[2017-02-02] MEDS: DOCUSATE SODIUM 50 MG/SENNA 8.6 MG TAB PO SCH (09:19)
[2017-02-02] MEDS ORDERED: LOSA25TA PO (13:59)
--- NOTE | 2017-02-03 19:01 | HHI.DS ---
Discharge Summary Admission Date Jan 22, 2017 at 11:58 Discharge Date: Feb 02, 2017 Admitting Diagnosis fever/sepsis Brief History THis was a very pleasant 61-year-old female with a history of ICD placement in 2007. She was a nurse herself. She had 3 weeks of intermittent fever and chills. In addition she had some headache and cough. Temperature at home has been up to 103F. She came to the emergency department at [facility] at the suggestion of her coworkers. She was seen by Dr. Garcia and subsequently by the undersigned in room E 51. She was alert and oriented. She was seen in presence of her . She was complaining of fever chills or diaphoresis as detailed above. In addition she was complaining of swelling in the defibrillator site, she also said that the defibrillator has actually moved laterally. No redness or drainage. She also complained of pleuritic pain in the left lower rib cage area. No abdominal pain. No change in bowel habit. No dysuria or hematuria at this time. CBC/BMP: 02/01/17 0553 01/31/17 0652 Significant Findings Laboratory Tests Test 02/01/17 05:53 White Blood Count 3.5 TH/MM3 (4.0-11.0) Red Blood Count 3.48 MIL/MM3 (4.00-5.30) Hemoglobin 9.9 GM/DL (11.6-15.3) Hematocrit 29.6 % (35.0-46.0) Monocytes (%) (Auto) 10.6 % (0.0-8.0) Neutrophils # (Auto) 1.7 TH/MM3 (1.8-7.7) Imaging Last Impressions Chest X-Ray 02/01/17 0000 Signed Impressions: Service Date/Time: Wednesday, February 01, 2017 15:32 - CONCLUSION: 1. Right-sided PICC line has its tip in good position at the junction of the superior vena cava and right atrium. 2. Cardiomegaly. 3. No acute focal pulmonary infiltrate or pulmonary vascular congestion. 4. Stable calcified granuloma within the right lung base. Jaun Clark MD CT Angiography 01/22/17 0000 Signed Impressions: Service Date/Time: Sunday, January 22, 2017 19:01 - CONCLUSION: No pulmonary embolus or other acute cardiopulmonary disease demonstrated. Homar Ashraf MD PE at Discharge General Appearance: Well Developed, Well Nourished, No Acute Distress, Comfortable Eyes Eye Exam: Pupils Equal, Pupils Reactive, Extraocular Movement Intact Ears & Nose Ears & Nose Exam: Nasal Mucosa [place] Throat Throat Exam: Oral Mucosa [place] & Moist Neck Neck Exam: Neck Supple, Trachea Midline Pulmonary Resp Exam: Breath Sounds Equal Cardiology CV Exam: Regular, Normal Sinus Rhythm Chest/Breast Chest/Breast Remarks Left upper chest wall with dressing D/I incision with faint erythema JORGE removed Gastrointestinal/Abdomen GI Exam: Soft, Non-Tender, Bowel Sounds Present, Non-Distended Musculoskeletal MS Exam: Normal Gait, Normal Tone Integumentary Skin Exam: Warm, Dry Skin Remarks skin dry arms, back Extremeties Extremities Exam: No Edema, Pedal Pulses Palpable Neurologic Neuro Exam: Alert, Awake, Oriented, Speech Clear, Moving All Extremities, Teacher Visually Impaired Equal, No Focal Deficits Psychiatric Psych Exam: Appropriate Responses VTE Prophylaxis VTE Prophylaxis Meds: Heparin Hospital Course THese are the diagnosis used to treat patient during hospital stay. Bacteremia with Staphylococcus LUGDIUNENSIS, sensitivity noted High-grade fever prior to admission, none since Leukocytosis, resolved Left pleuritic chest pain, resolved Swelling at the ICD site with a sensation that the device has moved laterally, improving Hypokalemia Management vitals signs and labs monitored and treated per needs and plan of care. Appreciate consultants input, cardiology, ID, cardiothoracic Antibiotics managed per ID changed to Ancef today BC + Staphylococcus LUGDIUNENSIS, sensitivity noted Cardiology and CV surgeon managed her AICD and removal. S/P AICD and lead extraction 01/29 JORGE removed when drainage was controlled cultures done, AICD wound site positive culture Will need 6 weeks Abx after removal of hardware PICC today before DC Echo done, EF 30-35% Positive rheumatoid factor, significance unknown We'll need to follow up with rheumatology as outpatient DVT prophylaxis with low-dose heparin Rash, dry skin -better monitor continue [place] hydrin BP 98, added parameters to DONNA and BB Coreg decreased, HR and BP better CM for dc planning, HHC for IV abx Waiting for Dr. Jansen, direct for life vest while waiting for reimplantation of AICD Discussed with patient daily Discussed with RN daily Discussed with CM Consulting and Hospitalist discussions. This patient was seen by myself and , this note is written on his behalf Patient seen and examined per Dr. Wagner on DC agree with above assessment and plan Discussed with Dr Jansen; Jaimee d/c patient home on lifevest with plans for AICD placement, when cleared By ID d/w Dr Chauhan: would prefer completion of antibiotics prior to AICD placement awaiting PICC line placement and arrangement of HHC and antibiotics needs life vest delivered prior to discharge plan of care discussed with patient, home health care case manager, nursing staff and Savi molina to d/c home with HHC, if all the above arrangements complete Pt Condition on Discharge: Stable Discharge Disposition: Disch w/ Home Health Serv Discharge Instructions DIET: Follow Instructions for: Heart Healthy Diet Activities you can perform: Regular-No Restrictions Follow up Referrals: Cardiology with Lyndsey Jansen MD PCP Follow-up Surgical with Betty Daily MD Vascular Surgery with DR. DANNA DAILY New Medications: Defibrillator Jacket (Defibrillator Jacket) 1 Ea Device 1 EA EXTERNAL ONCE Energy = 150 Joules; VT Threshold = 150 BPM; VF Threshold = 200 BPM Use up to 90 days only #1 EA Losartan (Losartan) 25 Mg Tab 12.5 MG PO DAILY Blood Pressure Management #15 Ref 0 TAB Carvedilol (Coreg) 12.5 Mg Tab 12.5 MG PO BID CARDIOMYOPATHY #60 Ref 1 TAB Continued Medications: Aspirin (Aspirin Low Dose) 81 Mg Chew 81 MG CHEW DAILY Ref 0 TAB Gabapentin (Neurontin) 800 Mg Tab 1000 MG PO BID #90 Ref 0 TAB Discontinued Medications: Carvedilol (Carvedilol) 25 Mg Tab 25 MG PO BID #60 Ref 0 TAB Bree Messina Feb 03, 2017 19:01
== END 2017-02-02 14:30 | disposition home health service (06) | DRG 260 ==
LOC: NEPE 09:30 → NEDA 11:58 → N04B 16:11
PROVIDERS: ADMIT Specialist; ATTEND Specialist
PROC: 0JPT0PZ Removal of Cardiac Rhythm Related Device from Trunk Subcutaneous Tissue and Fascia, Open Approach (ICD-10-PCS; 2017-01-29)
PROC: 02PA0MZ Removal of Cardiac Lead from Heart, Open Approach (ICD-10-PCS; principal; 2017-01-29 16:35)
DX: T82.7XXA Infection and inflammatory reaction due to other cardiac and vascular devices, implants and grafts, initial encounter (principal); A41.9 Sepsis, unspecified organism; D70.9 Neutropenia, unspecified; E87.2 Acidosis; I42.9 Cardiomyopathy, unspecified; I50.22 Chronic systolic (congestive) heart failure; I11.0 Hypertensive heart disease with heart failure; Y83.1 Surgical operation with implant of artificial internal device as the cause of abnormal reaction of the patient, or of later complication, without mention of misadventure at the time of the procedure; D64.9 Anemia, unspecified; E78.5 Hyperlipidemia, unspecified; E87.6 Hypokalemia; I45.4 Nonspecific intraventricular block; F41.9 Anxiety disorder, unspecified; L29.9 Pruritus, unspecified; Z86.718 Personal history of other venous thrombosis and embolism; Z86.73 Personal history of transient ischemic attack (TIA), and cerebral infarction without residual deficits
CPT/HCPCS: 36569; 71010; 71275; 76937; 80048; 80053; 81001; 82565; 83605; 85025; 85027; 85652; 86038; 86140; 86308; 86403; 86430; 86664; 86665; 86850; 86900; 86901; 86920; 87015; 87040; 87070; 87077; 87102; 87116; 87185; 87186; 87205; 87206; 87497; 87641; 87804; 93005; 93306; 96365; 96367; J0456; J0690; J1644; J2250; J2270; J2370; J2405; J2543; J2700; J3010; J3370; J7030; J7040; J7050; Q9967

== ENCOUNTER 2017-04-02 12:04 | Day surgery (SDC) | payer OTHER ==
[~2017-04-02] VITALS: Ht 154.9 cm; Wt 77.5 kg
[~2017-04-02 12:04] MED LIST changes: +ASPI81CH37 CHEW; +DEFIB EXTERNAL; -ESTR30V VAGINAL; +LOSA25TA PO; +MIDAZOLAM HCL 2 MG/2 ML VIAL IV ONE; +NEUR800T PO; +ONDANSETRON HCL 4 MG/2 ML VIAL IV PUSH ONE; +PHENYLEPH/NS 1000 MCG/10 ML SYR IV ONE; +PROPOFOL 200 MG/20 ML AMP IV ONE; -SPIR25TA PO
[2017-04-02] MEDS ORDERED: NS 1000 ML IV SCH (13:00)
[2017-04-02] MEDS ORDERED: MUPIROCIN 2% OINT 1 APPLIC/GM SYR NASAL SCH (13:15)
[2017-04-02] MEDS ORDERED: ceFAZolin 2 GM PREMIX 50 ML IV SCH (13:15)
[2017-04-02] MEDS ORDERED: VANCOMYCIN 1000 MG/NS 250 ML IV SCH ×2 (13:15)
[2017-04-02] MEDS ORDERED: NO Heparin, Lovenox, Coumadin at least 12 hours prior to procedure. PRN (13:15)
[2017-04-02] MEDS ORDERED: CHLORHEXIDINE GLUCONATE 2 % 1 PACK (2 CLOTHS) TOPICAL SCH (13:15)
[2017-04-02] MEDS ORDERED: POVIDONE IODINE 5% (ANTISEPSIS KIT) 4 APPLICATIONS EACH NARE SCH (13:15)
[2017-04-02] MEDS ORDERED: Hold AM Insulin & AM Hypoglycemic medications in diabetic patients PRN (13:15)
[2017-04-02] MEDS ORDERED: LORazepam 1 MG TAB SL SCH (13:15)
[2017-04-02 13:34] VITALS: BP 135/75; PULSE 63; RESP 18; TEMP 98; O2SAT 98
[2017-04-02 13:39] LABS: AUTOMATED NEUTROPHIL # 2.8 TH/MM3 (1.8-7.7); BASOPHIL % 0.7 % (0.0-2.0); EOSINOPHIL # 0.1 TH/MM3 (0-0.4); EOSINOPHIL % 2.3 % (0.0-4.0); HEMATOCRIT 37.8 % (35.0-46.0); HEMO FLAGS DIFF FINAL; LYMPH % 28.6 % (9.0-44.0); LYMPHOCYTE # 1.4 TH/MM3 (1.0-4.8); MEAN CELL VOLUME 85.3 FL (80.0-100.0); MEAN CORPUSCULAR HEMOGLOBIN 28.8 PG (27.0-34.0); MEAN CORPUSCULAR HGB CONC 33.7 % (32.0-36.0); MONO % 11.6 % (0.0-8.0); NEUT % 56.8 % (16.0-70.0); PLATELET COUNT 196 TH/MM3 (150-450); RED BLOOD COUNT 4.43 MIL/MM3 (4.00-5.30); RED CELL DISTRIBUTION WIDTH 13.9 % (11.6-17.2)
[2017-04-02] MEDS ORDERED: LACTCAP8 PO (13:41)
[2017-04-02] MEDS ORDERED: SODIUM CHLORID 0.9% 500 ML IV PRN (13:45)
[2017-04-02] MEDS ORDERED: METOPROLOL TARTRATE 25 MG TAB PO PRN (13:45)
[2017-04-02] MEDS ORDERED: INSULIN HUMAN REGULAR 1,000 UNITS/10 ML VIAL SQ PRN (13:45)
[2017-04-02] MEDS ORDERED: LACTATED RINGER'S 1000 ML IV PRN (13:45)
[2017-04-02] MEDS ORDERED: CHLORHEXIDINE GLUCONATE 2 % 1 PACK (2 CLOTHS) TOPICAL PRN (13:45)
[2017-04-02] MEDS ORDERED: POVIDONE IODINE 5% (ANTISEPSIS KIT) 4 APPLICATIONS EACH NARE PRN (13:45)
[2017-04-02 13:47] LABS: APTT (PATIENT) 21.3 SEC (24.3-30.1); PROTHROMBIN TIME - PATIENT 10.7 SEC (9.8-11.6)
[2017-04-02 13:54] LABS: BICARBONATE 24.3 MEQ/L (21.0-32.0); POTASSIUM 4.2 MEQ/L (3.5-5.1)
[2017-04-02] MEDS ORDERED: SODIUM CHLORID 0.9% 500 ML INJ 1,500 ML IV ONE (15:31)
[2017-04-02] MEDS ORDERED: PROPOFOL 200 MG/20 ML AMP IV ONE (15:31)
[2017-04-02] MEDS ORDERED: PHENYLEPH/NS 1000 MCG/10 ML SYR IV ONE (15:31)
[2017-04-02] MEDS ORDERED: MIDAZOLAM HCL 2 MG/2 ML VIAL IV ONE (15:31)
[2017-04-02] MEDS ORDERED: ONDANSETRON HCL 4 MG/2 ML VIAL IV PUSH ONE (15:31)
[2017-04-02] MEDS ORDERED: LIDOCAINE HCL 2% 50 ML VIAL ONE ×3 (16:13→16:54)
[2017-04-02] MEDS ORDERED: VANCOMYCIN 500 MG VIAL ONE ×2 (16:13→16:33)
--- NOTE | 2017-04-02 17:38 | CATHPROC ---
[employer] HIS Report Study Information Study Number Admission Scheduled Start Study Start [id number] Apr 02 2017 12:04PM 04/02/2017 Apr 02 2017 3:54PM [facility] Cardiac Pacer/ICD Admit Source Facility Department Other [facility] [employer] Physician and Clinical Staff Initial Lyndsey Vargas Building Construction Estimator Bryant, Alexandra,FIRE INVESTIGATION MANAGER TECH2 Building Construction Estimator Mariella Tomlinson,FIRE INVESTIGATION MANAGER Other Anesthesia, CONCRETE BUSTER OPERATOR Recorder Silvino Corral,DUGLAS Recorder Anny Medina RN Scrub Natividad Soliz,RT(R) TECH2 Procedures Performed Procedure Lead Insertion Equipment Time Machine Clothing Worker Description Size Mfg Part Number Used/Scraped [employer]/ EP 17:25 DEFIBRILLATOR, EMBLEM S-ICD A209 Used PACER [employer]/ EP 17:12 LEAD, EMBLEM S-ICD 45CM 45CM 3401 Used PACER DERMABOND, ADHESIVE SKIN [id number] 17:14 CORDIS/PACER * Used GLUE MINI *[id number]-1103 17:14 MEDLINE [employer] SUTURE, STRIP PLUS 1/2" * Used *[id number] 17:14 MEDLINE PACER GEE, LIMB * 2530 *[id number] Used [id number] 17:14 MEDLINE PACER PACK, PACER CUSTOM * Used *[id number] 16:39 Needle Sponge Count 1 1 Used 16:39 Needle Sponge Count 2 22 Used 16:39 Needle Sponge Count 20 200 Used SUTURE, 0 ETHIBOND [CT1] (CX21D), 8pk SUTURE, 2-0 VICRYL [CT1] ([id number]) SUTURE, 2-0 VICRYL [CT1] (FJY320F) [id number] 17:14 [facility],WARM AIR CCL * Used *[id number] [facility] PAD, ELECTROSURGICAL 17:14 * [id number] *[id number] Used SURGICAL GROUNDING ORANGE [id number] 17:14 [employer]. ELECTRODE, PRO-PADZ BIPHASIC * Used *[id number] Equipment Model, Serial, Lot Number and Expiration Data Description Model Number Serial Number Lot Number Expiration Date LEAD, EMBLEM S-ICD 45CM 3401 [id number] 10-10-2017 History: Allergies Allergy Reaction No Known Allergies History: Risk Factors Hypertension Dyslipidemia Yes Yes Cerebrovascular Disease Labs Hgb (g/dl) Hct (%) RBC (MIL/MM3) WBC (l/cumm) Platelets (thousands) 11.60-17.00 35.00-51.00 4.00-5.90 4.00-11.00 150.00-450.00 12.0 37 4.4 5 196 Glucose (mg/dl) BUN (mg/dl) Creatinine (mg/dl) BUN:Creatinine (1:x) 74.00-106.00 7.00-18.00 0.50-1.30 10.00-20.00 83 13 0.7 18.6 Na (meq/l) K (meq/l) 136.00-145.00 3.50-5.10 139 4.2 INR (PTT:PT) 0.90-1.10 1 Medication Medication Total Dose (Bolus/Oral) Medication Total Dosage/Unit 2% XYLOCAINE 50 mL Medications (Bolus/Oral) Medication Time Given Dosage/Unit Administered By Reason 2% XYLOCAINE 04/02/2017 4:51:47 PM 50 mL Lyndsey Jansen 50 mL 2% XYLOCAINE given in lab by Lyndsey Jansen via Subcutaneous. Medication (Drip) Medication Time Given Dosage/Unit Concentration/Unit Diluent (ml) Solution ANCEF 04/02/2017 4:34:38 PM 2 g 2 g ANCEF given by Anesthesia, CONCRETE BUSTER OPERATOR in Left Hand via Peripheral IV. VANCOMYCIN DRIP 04/02/2017 4:35:17 PM 1 g 1 g VANCOMYCIN DRIP given by Anesthesia, CONCRETE BUSTER OPERATOR in Right Hand via Peripheral IV. Initial Case Assessment Cardiovascular HR Rhythm NIBP Chest Pain 96 SR 136/64 0 Edema Present Skin color Skin None Normal Warm Dry Circulatory - Right Pulses Radial 1 Scale (0,1,2,3,4,d) Circulatory - Left Pulses Radial 1 Scale (0,1,2,3,4,d) Circulatory - Lower Extremities Color Lower Right Color Lower Left Normal Normal Neurological State Oriented to time-place- Alert Moves all extremities person Respiration - General Respiration Rate SpO2 (%) (B/min) 18 98 Final Case Assessment Cardiovascular HR Rhythm NIBP Chest Pain 58 sr 108/59 0 Edema Present Skin color Skin None Normal Warm Dry Circulatory - Right Pulses Radial 1 Scale (0,1,2,3,4,d) Circulatory - Left Pulses Radial 1 Scale (0,1,2,3,4,d) Circulatory - Lower Extremities Color Lower Right Color Lower Left Normal Normal Neurological State Oriented to time-place- Lethargic Moves all extremities person Respiration - General Respiration Rate SpO2 (%) O2 (lpm) (B/min) 16 100 6 Chronological Log Time Study Chronological Log 16:10:32 Patient arrived via Bed. 16:10:34 Patient Name, D.O.B, / Armband Verified By R.N. 16:11:07 Anesthesia at bedside. Assumes care of patient. JUDY 16:23:57 Patient has been NPO for More than 6Hrs. 16:24:00 Skin Breakdown-NONE PER PATIENT 16:27:48 Patient Warmer Placed on the Table. 16:27:50 Disposable Defibrillator Pads Placed On Patient. 16:27:52 Adam Prominences Protected 16:28:01 A # 20 IV was noted in the Hand (left). Grade = 0 0.9NS KVO 16:28:25 A # 20 IV was noted in the Hand (right). Grade = 0 0.9NS KVO 16:28:53 History and physical on the chart or being dictated. 16:28:57 Table restraints applied according to hospital policy 16:29:02 ICD SITES Prepped Times Two. 16:34:38 2 g ANCEF given by Anesthesia, CONCRETE BUSTER OPERATOR in Left Hand via Peripheral IV. Assessment: Initial Case, HR=96 BPM, Rhythm=SR, LTYB=827/64 mmhg, Chest Pain=0, Edema=None, Col or=Normal, Skin = Warm, Dry Right Pulses: Radial=1 Left Pulses: Radial=1 16:35:00 Lower Right Extremities: Color=Normal Lower Left Extremities: Color=Normal Neurological: State=Alert, Ox3, RUIZ Respiration: Resp=18 B/min, SpO2=98 % 16:35:17 1 g VANCOMYCIN DRIP given by Anesthesia, CONCRETE BUSTER OPERATOR in Right Hand via Peripheral IV. 16:38:00 2% CHLORHEXIDINE GLUCONATE WASH AND NASAL SWIPE DONE PRIOR TO PROCEDURE. First Sponge And Instrument Count Done by Natividad Soliz, RT(R) TECH2. 16:38:38 Hypo's: 1, Sponges: 20, Bovie/scratch: 2 Sutures: 11, Blades: 1, Instruments: 26, Syveck Patches: ~SYVECK PATCH~ 16:39:55 MD arrived. Time Out. Correct patient, procedure, procedure equipment, site and side verified with physicia n present. Time 16:51:04 concurred by MD, individual staff and CONCRETE BUSTER OPERATOR. Time Out #2 - Consents verified, patient in correct position, all results are labled and displa yed, safety precautions 16:51:35 taken, antibiotics administered. Time out concurred by MD, individual staff and CONCRETE BUSTER OPERATOR in procedu re 16:51:46 Case Start 16:51:47 50 mL 2% XYLOCAINE given in lab by Lyndsey Jansen via Subcutaneous. 16:55:21 Surgical Incision Made. 16:57:39 A pocket was created at the L [place] Upper Chest. 17:08:06 Reference ECG taken 17:09:47 A LEAD, EMBLEM S-ICD 45CM 45CM was inserted, tunneled and positioned below the substernal n otch . 17:11:31 The RV lead impedance and threshold being tested. 17:16:37 The RV lead was sutured to the fascia. A DEFIBRILLATOR, EMBLEM S-ICD was connected and placed in the pocket. Media Chaperone MRI S-I CD,model 17:17:01 #A219, SN [id number], EX: 11/24/2018 17:21:09 Implant Procedure was performed. 17:21:17 A ICD Implant . (Single) Subcutaneous Second Sponge And Instrument Count Done by Natividad Soliz, RT(R) TECH2. 17:21:41 Hypo's: 1, Sponges: 20, Bovie/scratch: 2 Sutures: 11, Blades: 1, Instruments: 26, Syveck Patches: ~SYVECK PATCH~ 17:27:00 The pocket was closed. 17:30:18 Judy called PACU. 17:30:40 Bedside Report will be given. Final Sponge And Instrument Count Done by Natividad Soliz, RT(R) TECH2. 17:31:31 Hypo's: 1, Sponges: 20, Bovie/scratch: 2 Sutures: 12, Blades: 1, Instruments: ~INSTRU~, Syveck Patches: ~SYVECK PATCH~ [address] first count 17:35:03 Case End Assessment: Final Case, HR=58 BPM, Rhythm=sr, BJVY=583/59 mmhg, Chest Pain=0, Edema=None, Color =Normal, Skin = Warm, Dry Right Pulses: Radial=1 Left Pulses: Radial=1 17:35:07 Lower Right Extremities: Color=Normal Lower Left Extremities: Color=Normal Neurological: State=Lethargic, Ox3, RUIZ Respiration: Resp=16 B/min, YwH8=133 %, O2=6 lpm 17:35:58 Sterile dressings applied to sites. 17:36:07 No case complications noted. 17:36:08 Cine recording checked. 17:36:11 Implantable Device card placed in patient's chart. 17:40:13 Defibrillator and ground pads removed. Skin intact. 17:48:20 Patient moved to stretcher 17:50:01 A sling was placed on the affected arm. End Study - Contrast Media Used In Study Contrast Total Opened (mL) Total Used (mL) Total Wasted (mL) Unspecified 0 0 0 End Study - Maximum Contrast Load Max Contrast Load (mL) 554.2 End Study - Radiation Exposure Fluoro Time (minutes) 0.0 End Study - Patient Disposition Complications Transferred To Interventional Outcome No Telemetry Bed successful
[2017-04-02] MEDS ORDERED: TEMAZEPAM 15 MG CAP PO PRN (17:45)
[2017-04-02] MEDS ORDERED: ONDANSETRON HCL 4 MG/2 ML VIAL IV PUSH PRN (17:45)
[2017-04-02] MEDS ORDERED: DO NOT ADM ANY ANTICOAGULANT DRUGS PRN (17:54)
[2017-04-02] MEDS ORDERED: *morphine SULFATE 8 MG/ML PERIprocedure ONLY ONE (18:20)
--- NOTE | 2017-04-02 18:26 | RADRPT ---
EXAM DATE/TIME: 04/02/2017 18:06 [place] COMPARISON: CHEST SINGLE AP, February 01, 2017, 15:32. INDICATIONS : Status post SICD placement. MEDICAL HISTORY : Stroke. Hypertension SURGICAL HISTORY : None. ENCOUNTER: Initial ACUITY: 1 day PAIN SCORE: 0/10 LOCATION: chest FINDINGS: Right PICC line has been removed. There is atherosclerotic cardiovascular disease with borderline lef t ventricular cardiomegaly compensated. There is placement of an SICD device with no complication no evidence of pneumothorax CONCLUSION: No acute process. Mo Willett MD on April 02, 2017 at 18:22 Board Certified Radiologist. This report was verified electronically.
[2017-04-02] MEDS ORDERED: PILL SPLITTER OTHER PRN (18:45)
[2017-04-02 20:00] VITALS: BP 121/64; PULSE 66; RESP 20; TEMP 98.2; O2SAT 99
--- NOTE | 2017-04-02 20:03 | MP ---
cc: SIMONE OTERO M.D. DATE OF SURGERY: INDICATIONS FOR THE PROCEDURE: Mrs. Taylor is a 61-year-old female with history of with congestive heart failure and cardiomyopathy. She had a previous defibrillator implanted around five or six years ago. She has bacteriemia. The generator has to be removed. She currently has a defibrillatory vest. Her ejection fraction is around 30%. Previous episode of ventricular tachycardia. She will undergo defibrillator insertion for sudden primary prevention. The risks, the nature and the benefits of the procedure were clearly stated to her. The risks include pneumothorax, cardiac perforation, infection, need for endotracheal intubation and even . She understood and agreed to proceed. DESCRIPTION OF THE PROCEDURE IN DETAIL: After written informed consent was obtained, the patient was brought to the EP lab where she was prepped and draped in the usual sterile fashion. Conscious sedation was initiated and maintained throughout the procedure by the anesthesiologist. Once sedation was verified, the left axillary area was anesthetized with 2% Xylocaine. Using a #11 scalpel, a 6-cm incision was made in the mid axillary area. This incision was then taken down to the deep fascial layer using Bovie cautery and blunt dissection. Subsequently at the level of the xiphoid, a 1-cm incision was made. Subsequently a sheath was ___ from the 654 to the pocket made at the level of the left mid axillary area. Then through the sheath, I did advance a lead. The sheath was removed. The lead was sutured at the subxiphoid area. Subsequently the lead was ____ on the sternum all the way to the level of the clavicle. Then subsequently I did proceed with connecting the device. Prior to that, the pocket was copiously irrigated using antibiotic solution. The leads were connected to the generator and placed into the pocket. I did proceed with suture of the subxiphoid area using #2 Ethibond suture. Dermabond adhesive was applied to the wound. Then I proceeded with suture of the pocket. The deep fascial layer was approximated using #2-0 Vicryl suture in a continuous fashion. The subcutaneous layer was reapproximated twice using two layers of suture and the subcuticular layer was approximated using #2-0 Vicryl suture in a continuous fashion. Dermabond adhesive was applied to the wound followed by a sterile pressure dressing. There were no complications. This was a complex case. Blood loss was minimal. 1. IMPLANTED HARDWARE: The implanted subcutaneous defibrillator is a [employer] model #A219, serial #[id number]. 2. SETTINGS: The device was set for a defibrillatory zone between 180 to 240 beats per minute in both zones. The patient is going to have an 80 joule defibrillatory shock. CONCLUSIONS: Successful subcutaneous defibrillator insertion. COMMENTS AND RECOMMENDATIONS: The patient going to be transferred to the recovery room, will be observed and discharged home later today. MD DEJAN Reyes/ERVIN /6:24 PM /7:23 PM
[2017-04-02 21:00] VITALS: PULSE 68
[2017-04-02] MEDS: GABAPENTIN 100 MG CAP PO SCH (21:00)
[2017-04-02] MEDS: ACETAMINOPHEN/HYDROcodone 325 MG/10 MG TAB PO PRN (21:13)
[2017-04-02] MEDS: CARVEDILOL 12.5 MG TAB PO SCH (21:13)
[2017-04-02 22:00] VITALS: PULSE 65
[2017-04-02 23:00] VITALS: PULSE 63
[2017-04-02] MEDS: ceFAZolin 2 GM PREMIX 50 ML IV SCH (23:53)
[2017-04-03] VITALS (11 sets, daily range): BP systolic 100–102; BP diastolic 52–65; PULSE 62–89; RESP 18–20; TEMP 97.7–98.2; O2SAT 96–99
[2017-04-03] MEDS: ACETAMINOPHEN/HYDROcodone 325 MG/10 MG TAB PO PRN (05:37)
[2017-04-03] MEDS: GABAPENTIN 100 MG CAP PO SCH (09:00)
[2017-04-03] MEDS ORDERED: ASPIRIN 81 MG CHEW TAB CHEW SCH (09:00)
[2017-04-03] MEDS ORDERED: LOSARTAN 25 MG TAB PO SCH (09:00)
--- NOTE | 2017-04-03 09:29 | PD.CARD.PN ---
Subjective Subjective Remarks Pt has had minor site pain but generally feeling well, wants to go home. Objective Medications Administered Medications Medications (Trade) Dose Ordered Sig/[place] Route PRN Reason Start Time Stop Time Status Last Admin Dose Admin Cefazolin Sodium/ Dextrose 50 ml @ 100 mls/hr [employer] IV 04/02/17 13:15 04/05/17 13:14 04/02/17 16:34 Vancomycin HCl 1000 mg/Sodium Chloride 250 ml @ 250 mls/hr [employer]OR IV 04/02/17 13:15 04/05/17 13:14 04/02/17 16:35 Cefazolin Sodium/ Dextrose 50 ml @ 100 mls/hr Q8H IV 04/02/17 17:00 04/03/17 09:29 04/02/17 23:53 Temazepam (Restoril) 15 mg HS PRN PO SLEEP 04/02/17 17:45 04/03/17 01:04 Carvedilol (Coreg) 12.5 mg BID PO 04/02/17 21:00 04/02/17 21:13 Acetaminophen/ Hydrocodone Bitart ([place] 10-325 Mg) 1 tab Q6H PRN PO PAIN SCALE 4 TO 10 04/02/17 18:30 04/03/17 05:37 Vital Signs / I&O Vital Signs Date Time Temp Pulse Resp B/P (MAP) Pulse Ox O2 Delivery O2 Flow Rate FiO2 04/03/17 07:00 97.7 67 20 102/65 (77) 96 04/03/17 07:00 64 04/03/17 06:00 71 04/03/17 05:00 66 04/03/17 04:00 74 04/03/17 03:57 98.0 62 18 100/55 (70) 99 04/03/17 03:00 70 04/03/17 02:00 63 04/03/17 01:00 66 04/03/17 00:00 98.2 64 18 100/52 (68) 97 04/03/17 00:00 64 04/02/17 23:00 63 04/02/17 22:00 65 04/02/17 21:00 68 04/02/17 20:00 66 04/02/17 20:00 98.2 66 20 121/64 (83) 99 04/02/17 18:30 67 16 134/65 (88) 97 Room Air 04/02/17 18:15 61 16 140/65 (90) 99 Room Air 04/02/17 17:58 96.6 59 16 127/62 (83) 99 Room Air 04/02/17 13:34 98.0 63 18 135/75 (95) 98 I/O 04/02/17 04/02/17 04/02/17 04/03/17 04/03/17 04/03/17 07:00 15:00 23:00 07:00 15:00 23:00 Intake Total 550 ml Output Total 850 ml Balance -300 ml Intake Oral 500 ml IV Total 50 ml Output Urine Total 850 ml # Bowel Movements 0 Physical Exam GENERAL: This is a well-nourished, well-developed patient, in no apparent distress. CARDIOVASCULAR: Regular rate and rhythm without murmurs, gallops, or rubs. RESPIRATORY: Clear to auscultation. Breath sounds equal bilaterally. No wheezes , rales, or rhonchi. GASTROINTESTINAL: Abdomen soft, non-tender, nondistended. Normal active bowel sounds MUSCULOSKELETAL: Extremities without clubbing, cyanosis, or edema. NEURO: Alert & Oriented x4 to person, place, time, situation. Moves all ext x4 Laboratory Laboratory Tests Test 04/02/17 13:20 White Blood Count 5.0 TH/MM3 Red Blood Count 4.43 MIL/MM3 Hemoglobin 12.7 GM/DL Hematocrit 37.8 % Mean Corpuscular Volume 85.3 FL Mean Corpuscular Hemoglobin 28.8 PG Mean Corpuscular Hemoglobin Concent 33.7 % Red Cell Distribution Width 13.9 % Platelet Count 196 TH/MM3 Mean Platelet Volume 8.3 FL Neutrophils (%) (Auto) 56.8 % Lymphocytes (%) (Auto) 28.6 % Monocytes (%) (Auto) 11.6 % Eosinophils (%) (Auto) 2.3 % Basophils (%) (Auto) 0.7 % Neutrophils # (Auto) 2.8 TH/MM3 Lymphocytes # (Auto) 1.4 TH/MM3 Monocytes # (Auto) 0.6 TH/MM3 Eosinophils # (Auto) 0.1 TH/MM3 Basophils # (Auto) 0.0 TH/MM3 CBC Comment DIFF FINAL Differential Comment Prothrombin Time 10.7 SEC Prothromb Time International Ratio 1.0 RATIO Activated Partial Thromboplast Time 21.3 SEC Blood Urea Nitrogen 13 MG/DL Creatinine 0.75 MG/DL Random Glucose 83 MG/DL Calcium Level 9.0 MG/DL Sodium Level 139 MEQ/L Potassium Level 4.2 MEQ/L Chloride Level 109 MEQ/L Carbon Dioxide Level 24.3 MEQ/L Anion Gap 6 MEQ/L Estimat Glomerular Filtration Rate 78 ML/MIN Imaging Last Impressions Chest X-Ray 04/02/17 0000 Signed Impressions: Service Date/Time: Sunday, April 02, 2017 18:06 - CONCLUSION: No acute process. Mo Willett MD Assessment and Plan Problem List: (1) Aicd lead infection ICD Codes: T82.7XXA - Infection and inflammatory reaction due to other cardiac and vascular devices, implants and grafts, initial encounter Status: Acute (2) EF 30%, CARDIOMYOPATHY Status: Acute Assessment and Plan Now s/p another ICD, ok to d/c home. Jonathan Doan MD Apr 03, 2017 09:29
[2017-04-03] MEDS: CARVEDILOL 12.5 MG TAB PO SCH (09:33)
[2017-04-03] MEDS: ceFAZolin 2 GM PREMIX 50 ML IV SCH (09:33)
[2017-04-03] MEDS ORDERED: CEPH-460 PO (10:29)
[2017-04-03] MEDS ORDERED: HYDR-3366 PO (10:30)
--- NOTE | 2017-04-03 16:26 | EKG ---
Date Performed: 04/03/2017 Time Performed: 07:17:06 PTAGE: 61 years EKG: Sinus rhythm with borderline 1st degree A-V block Left bundle branch block Compared to previous tracing, MD inter justice is slightly longer, otherwise no significant change Abnormal ECG PREVIOUS TRACING : 04/02/2017 13.37 DOCTOR: Evan Farmer Interpretating Date/Time 04/03/2017 16:25:22
--- NOTE | 2017-04-03 16:26 | EKG ---
Date Performed: 04/02/2017 Time Performed: 13:37:12 PTAGE: 61 years EKG: Sinus rhythm . Left bundle branch block Compared to prior tracing no significant change Abnormal ECG PREVIOUS TRACING : 01/22/2017 10.00 DOCTOR: Evan Farmer Interpretating Date/Time 04/03/2017 16:24:40
== END 2017-04-03 11:01 | disposition home or self-care (01) ==
LOC: HDOC 12:04 → HDIC 12:05 → HCIS 18:49 → HDOC 04-03 11:01
PROVIDERS: ATTEND Internal Medicine Interventional Cardiology
DX: I42.0 Dilated cardiomyopathy (principal); I10 Essential (primary) hypertension; I44.7 Left bundle-branch block, unspecified; R79.1 Abnormal coagulation profile; E78.5 Hyperlipidemia, unspecified; Z79.82 Long term (current) use of aspirin
CPT/HCPCS: 00530; 33249; 71010; 80048; 85025; 85610; 85730; 86850; 86900; 86901; 93005; C1722; C1896; J0690; J2250; J2270; J2370; J2405; J3370; J7040; J7050; C1777; C1895